=== PATIENT | male | born 1955 | race Caucasian/White ===

== ENCOUNTER 2024-08-17 22:27 | Inpatient (IN) | payer MEDICARE, SELFPAY ==
[2024-08-17 17:05] VITALS: BMI 38.5
[2024-08-17 17:09] VITALS: BP 160/113
[2024-08-17 17:32] LABS: % Basophils 0.1 % (0-2); % Immature Granulocytes 0.6 % (0-0.5); % Lymphocytes 4.8 % (20.5-51.1); % Neutrophils 88.5 % (42.2-75.2); Absolute Immature Granulocytes 0.1 10^3/uL (0-0.05); Absolute Lymphocytes 0.9 10^3/uL (1.2-3.4); Absolute Monocytes 1.1 10^3/uL (0.1-0.6); Absolute Neutrophils 15.6 10^3/uL (1.4-6.5); Hematocrit 52.9 % (39.0-52.0); Mean Corp Hgb Conc. 35.9 g/dL (33.0-37.0); Mean Corpuscular Hgb 32.3 pg (27.0-31.0); Mean Corpuscular Volume 89.8 fL (80.0-94.0); Mean Platelet Volume 9.8 fL (7.4-10.4); Nucleated Red Blood Cells % 0 % (-); Platelet Count 330 10^3/uL (130-400); Red Blood Cell Count 5.89 10^6/uL (4.70-6.10); Red Cell Dist. Width 13.3 % (11.5-14.5); White Blood Cell Count 17.7 10^3/uL (4.8-10.8)
[2024-08-17 17:44] LABS: AST (SGOT) 83 U/L (17-59); Albumin 5.2 g/dl (3.5-5.0); Alkaline Phosphatase 76 U/L (38-126); Blood Urea Nitrogen 23 mg/dl (9-20); Calcium 10.2 mg/dl (8.4-10.2); Carbon Dioxide 17 mmol/L (22-30); Chloride 94 mmol/L (98-107); Glucose 298 mg/dl (70-99); Potassium 4.1 mmol/L (3.5-5.1); Sodium 137 mmol/L (135-145); Total Bilirubin 2.5 mg/dl (0.2-1.3); Total Protein 7.5 g/dl (6.3-8.2); eGFR > 60.00
[2024-08-17 17:54] LABS: ALT (SGPT) 89 U/L (0-50)
[2024-08-17 18:01] LABS: Lipase > 4000 U/L (23-300)
--- NOTE | 2024-08-17 18:41 | ED.GENMED ---
History of Present Illness
<Emily Teran RRTS - Last Filed: 08/20/24 08:59>
General
Chief Complaint: Abdominal Pain
Source: patient and physician
Exam Limitations: none
Time Seen by Provider: 08/17/24 18:40
Nursing documentation reviewed up to this point in time: agreed with
History of Present Illness
History of Present Illness:
68-year-old male with history of chronic back pain with spinal stenosis, asthma, HTN, HLD, colitis/diverticulitis, GERD, NIDDM presents for abdominal bloating and inability to move bowels. States he felt well yesterday a.m., had a small constipated
BM then and none since. States bloating 'is getting worse and worse and I'm having trouble breathing because it's pressing on my diaphragm.' He states bloating started last evening. He feels nauseous but has not vomited.
He states he does not drink alcohol
Past History
<Emily Teran, RRTS - Last Filed: 08/20/24 08:59>
Past History
ED Past Medical History: Asthma, GERD, HTN, Hypercholesterolemia, NIDDM and Other (Diverticulitis)
ED Past Surgical History: Tonsilectomy
Social History
Tobacco: Non-smoker
Alcohol: None
Personal: Single
Living: alone
Review of Systems
<Emily Teran, RRTS - Last Filed: 08/20/24 08:59>
Review of Systems
Allergies reviewed?: Yes
All Other Systems: ROS reviewed and negative except as documented in HPI and ROS
Constitutional: Denies fever or chills
Respiratory: Reports trouble breathing (Due to pressure on his diaphragm from his abdominal swelling)
Cardiac: Denies chest pain or syncope
ABD/GI: Reports abdominal pain, nausea and constipated; Denies vomiting, bloody stools or black stools
: Reports frequency; Denies dysuria or difficulty voiding
Musculoskeletal: Reports no symptoms
Skin: Reports no symptoms
Neurological: Reports no symptoms
Phy Exam
<Emily Teran, RRTS - Last Filed: 08/20/24 08:59>
Physical Exam
Physical Exam:
GENERAL: No acute distress. A&Ox3.
CONSTITUTIONAL: Afebrile.
EYES: clear, conjunctivae normal
ENMT: moist mucus membranes, Pharynx nl
RESPIRATORY: Regular respirations, nonlabored, lungs clear.
CARDIOVASCULAR: Regular rate and rhythm, no murmurs, no rubs. Tachycardic 121
GI: Distended, firm, hypoactive BS
MUSCULOSKELETAL: Moves with ease. Well perfused. No edema
SKIN: Warm, dry, pink
PSYCH: Normal mood and affect. Well kept, interactive and appropriate
NEUROLOGIC: Awake, alert and oriented. No focal neurological deficits
Course
<Emily Teran, RRTS - Last Filed: 08/20/24 08:59>
Orders/Labs/Results
Orders:
Orders
08/17/24 Breakfast
NPO
Allow oral meds: Yes
Allow clear liquids: Sips of Clears
NPO with Ice Chips: No
08/17/24 17:21
Alcohol Urgent
Complete Blood Count/With Diff Urgent
Comprehensive Metabolic Panel Urgent
LDH Urgent
Comment: ADD ON
Lipase Urgent
08/17/24 18:50
CT Abd/Pel (IV only)-DH only Urgent
Comment:
Reason For Exam: bloating, elevated lipase, bili
08/17/24 18:51
0.9% Sodium Chloride 1000 ml [Nss] 1,000 ml IV BOLUS
HYDROmorphone [Dilaudid] 1 mg IV NOW STA
Ondansetron Injectable [Zofran] 4 mg IV NOW STA
08/17/24 19:14
Urinalysis Reflex To Culture Urgent
Date Specimen was Collected: 08/17/24
Time Specimen was Collected: 19:03
Urine Microscopic Reflex Cult Urgent
Urine Culture Urgent
CHADD Source: U
Specimen Description:
Date Specimen was Collected: 08/17/24
Time Specimen was Collected: 19:03
08/17/24 19:50
Piperacillin/Tazo 3.375 Gram [Zosyn] 3.375 gram in 50 ml IV NOW
08/17/24 19:51
Electrocardiogram (*1) Urgent
Reason for Study: QTc Monitoring
EKG- Treatment ONCE
08/17/24 20:11
0.9% Sodium Chloride 1000 ml [Nss] 1,000 ml IV BOLUS
08/17/24 20:14
Lactate Level [Lactic Acid] Urgent
Blood Culture Q30M
CHADD Source: Blood/Venous
Specimen Description:
Blood Culture Q30M
CHADD Source: Blood/Venous
Specimen Description:
08/17/24 21:13
B-Hydroxybutyrate Urgent
08/17/24 21:49
Admit/Transfer Patient As Directed
Co-Sign Provider:
Level of Care: Inpatient admission
Assign to:: IMU- Intermediate Care
Physician / Group: Jacky
Diagnosis: Pancreatitis
Reason for Hospitalization: PAncreatitis
Expected length of stay greater than two midnights?: Yes
ELOS- Estimated Length of Stay in days: 3
I certify the patient meets the requirements for IP care: Yes
Code Status As Directed
Resuscitation Status: Full Code
PRN Pain Medication Management As Directed
May give lesser potent ordered pain med per pt: Yes
preference::
Protocol:: Medication orders for pain may be administered in a
manner that supports deferring to patient preference
when the pt is:
- Requesting an ordered lesser potent pain medication.
Least to most potent pain medications are defined
as: acetaminophen < NSAID < tramadol < opioids
(morphine, oxycodone, hydromorphone).
- Requesting a lesser dose of the same medication IF
ORDERED.
- Requesting a less intrusive route of administration
if both routes are prescribed by the provider (PO <
IV).
08/17/24 21:55
Insulin Human Regular [Novolin R] 5 units IV NOW STA
08/17/24 22:00
Lactated Ringers [Lr] 1,000 ml IV 200 mls/hr
08/17/24 22:19
Insulin Human Regular [Novolin R] 3 units IV NOW STA
08/17/24 23:40
Acetaminophen [Tylenol] 650 mg PO Q4HPRN PRN
Dextrose 50%-Water [Dextrose 50% Syringe] 12.5 grams IV [id number] PRN
Glucagon [GlucaGen] 1 mg IM PRN PRN
HYDROmorphone [Dilaudid] 0.5 mg IV Q3HPRN PRN
Lactated Ringers [Lr] 1,000 ml IV 150 mls/hr
Ondansetron Injectable [Zofran] 4 mg IV Q6HPRN PRN
08/17/24 23:40
Consult Notification Routine
Specialty to Notify: Gastroenterology
Date consulting provider notified: 08/18/24
Time consulting provider notified: 07:01
Notified:: Provider
GASTROINTESTINAL CONSULT Routine
Consulting Provider: Edin Rooney
Was physician already notified: No
Reason for consult: Pancreatitis
Activity As Directed
Activity Level: Out of Bed-Early Mobility
With Assistance
Bedside Glucose Monitoring As Directed
Frequency: AC&HS
Additional Instructions:: Change to q6h if pt on TPN, tube feeding or not eating
I&O [Intake/ Output] As Directed
Frequency: q12h
Vital Signs As Directed
Frequency: Per unit guidelines
Weight As Directed
Frequency: Daily
DX Deep Vein Thrombosis Video Routine
08/18/24 00:26
BMP [Basic Metabolic Panel] Routine
Lactic Acid Routine
08/18/24 04:00
Piperacillin/Tazo 3.375 Gram [Zosyn] 3.375 gram in 50 ml IV Q6H
08/18/24 04:27
Complete Blood Count/No Diff IN AM
Comprehensive Metabolic Panel IN AM
Hgba1c [Glycohemoglobin (HgbA1c)] IN AM
Lipase IN AM
TSH Reflex To Free T4 IN AM
08/18/24 06:00
Levothyroxine [Synthroid] 200 mcg PO DAILY @ 0600
08/18/24 07:30
Insulin Aspart Corrective Mod [Novolog Flexpen-Moderate Resistance] See Protocol SC AC
08/18/24 08:00
Enalapril [Vasotec] 20 mg PO BID
Pantoprazole [Protonix IV] 40 mg IV DAILY
08/18/24 18:00
Atorvastatin [Lipitor] 10 mg PO QPM
Enoxaparin Sodium [Lovenox] 40 mg SC QPM
Abnormal Lab Results
08/17/24 08/17/24 08/17/24
17:21 19:14 20:14
WBC 17.7 H 10^3/uL
(4.8-10.8)
Hgb 19.0 H g/dL
(13.0-18.0)
Hct 52.9 H %
(39.0-52.0)
MCH 32.3 H pg
(27.0-31.0)
Abs Immat Gran (auto) 0.1 H 10^3/uL
(0-0.05)
Absolute Neuts (auto) 15.6 H 10^3/uL
(1.4-6.5)
Absolute Lymphs (auto) 0.9 L 10^3/uL
(1.2-3.4)
Absolute Monos (auto) 1.1 H 10^3/uL
(0.1-0.6)
Immature Gran % 0.6 H %
(0-0.5)
Neutrophils % 88.5 H %
(42.2-75.2)
Lymphocytes % 4.8 L %
(20.5-51.1)
Chloride 94 L mmol/L
(98-107)
Carbon Dioxide 17 L mmol/L
(22-30)
BUN 23 H mg/dl
(9-20)
Glucose 298 H mg/dl
(70-99)
Lactic Acid 6.4 H* mmol/L
(0.7-2.0)
Total Bilirubin 2.5 H mg/dl
(0.2-1.3)
AST 83 H U/L
(17-59)
ALT 89 H U/L
(0-50)
Lactate Dehydrogenase 341 H U/L
(120-246)
Albumin 5.2 H g/dl
(3.5-5.0)
Lipase > 4000 H* U/L
(23-300)
Urine Ketones 3+ A
(Negative)
Ur Occult Blood Reflex 2+ A
(Negative)
Leukocyte Esterase Rfl 1+ A
(Negative)
Urine WBC (Reflex) 30-40 A /HPF
(0-5)
Urine Bacteria (Reflex) Many A
(Negative)
Urine Glucose 2+ A
(Negative)
Urine Albumin (Reflex) 4+ A
(Neg - Trace)
B-Hydroxybutyrate
POC Glucose
08/17/24 08/17/24
21:13 22:12
WBC
Hgb
Hct
MCH
Abs Immat Gran (auto)
Absolute Neuts (auto)
Absolute Lymphs (auto)
Absolute Monos (auto)
Immature Gran %
Neutrophils %
Lymphocytes %
Chloride
Carbon Dioxide
BUN
Glucose
Lactic Acid
Total Bilirubin
AST
ALT
Lactate Dehydrogenase
Albumin
Lipase
Urine Ketones
Ur Occult Blood Reflex
Leukocyte Esterase Rfl
Urine WBC (Reflex)
Urine Bacteria (Reflex)
Urine Glucose
Urine Albumin (Reflex)
B-Hydroxybutyrate 0.81 H mmol/L
(0.02-0.27)
POC Glucose 196 H mg/dl
(70-99)
08/17/24 17:21
08/17/24 17:21
Vital Signs
Initial and Last Documented VS:
Initial Vital Signs
Temp Pulse Resp BP Pulse Ox
97.7 F 121 20 160/113 96
08/17/24 17:09 08/17/24 17:09 08/17/24 17:09 08/17/24 17:09 08/17/24 17:09
Last Documented Vital Signs
Temp Pulse Resp BP Pulse Ox
98.1 F 98 22 158/85 93
08/20/24 07:39 08/20/24 08:44 08/20/24 06:00 08/20/24 08:44 08/20/24 06:00
Chief Librarian Extension Department consulted with Physician
Chief Librarian Extension Department consulted with physician?: Yes
Name of Physician Consulted: Luciano
<Ivan Wolf MD - Last Filed: 08/17/24 21:54>
Orders/Labs/Results
Orders:
Orders
08/17/24 Breakfast
NPO
Allow oral meds: Yes
Allow clear liquids: Sips of Clears
NPO with Ice Chips: No
08/17/24 17:21
Alcohol Urgent
Complete Blood Count/With Diff Urgent
Comprehensive Metabolic Panel Urgent
LDH Urgent
Comment: ADD ON
Lipase Urgent
08/17/24 18:50
CT Abd/Pel (IV only)-DH only Urgent
Comment:
Reason For Exam: bloating, elevated lipase, bili
08/17/24 18:51
0.9% Sodium Chloride 1000 ml [Nss] 1,000 ml IV BOLUS
HYDROmorphone [Dilaudid] 1 mg IV NOW STA
Ondansetron Injectable [Zofran] 4 mg IV NOW STA
08/17/24 19:14
Urinalysis Reflex To Culture Urgent
Date Specimen was Collected: 08/17/24
Time Specimen was Collected: 19:03
Urine Microscopic Reflex Cult Urgent
Urine Culture Urgent
CHADD Source: U
Specimen Description:
Date Specimen was Collected: 08/17/24
Time Specimen was Collected: 19:03
08/17/24 19:50
Piperacillin/Tazo 3.375 Gram [Zosyn] 3.375 gram in 50 ml IV NOW
08/17/24 19:51
Electrocardiogram (*1) Urgent
Reason for Study: QTc Monitoring
EKG- Treatment ONCE
08/17/24 20:11
0.9% Sodium Chloride 1000 ml [Nss] 1,000 ml IV BOLUS
08/17/24 20:14
Lactate Level [Lactic Acid] Urgent
Blood Culture Q30M
CHADD Source: Blood/Venous
Specimen Description:
Blood Culture Q30M
CHADD Source: Blood/Venous
Specimen Description:
08/17/24 21:13
B-Hydroxybutyrate Urgent
08/17/24 21:49
Admit/Transfer Patient As Directed
Co-Sign Provider:
Level of Care: Inpatient admission
Assign to:: IMU- Intermediate Care
Physician / Group: Jacky
Diagnosis: Pancreatitis
Reason for Hospitalization: PAncreatitis
Expected length of stay greater than two midnights?: Yes
ELOS- Estimated Length of Stay in days: 3
I certify the patient meets the requirements for IP care: Yes
Code Status As Directed
Resuscitation Status: Full Code
PRN Pain Medication Management As Directed
May give lesser potent ordered pain med per pt: Yes
preference::
Protocol:: Medication orders for pain may be administered in a
manner that supports deferring to patient preference
when the pt is:
- Requesting an ordered lesser potent pain medication.
Least to most potent pain medications are defined
as: acetaminophen < NSAID < tramadol < opioids
(morphine, oxycodone, hydromorphone).
- Requesting a lesser dose of the same medication IF
ORDERED.
- Requesting a less intrusive route of administration
if both routes are prescribed by the provider (PO <
IV).
08/17/24 21:55
Insulin Human Regular [Novolin R] 5 units IV NOW STA
08/17/24 22:00
Lactated Ringers [Lr] 1,000 ml IV 200 mls/hr
08/17/24 22:19
Insulin Human Regular [Novolin R] 3 units IV NOW STA
08/17/24 23:40
Acetaminophen [Tylenol] 650 mg PO Q4HPRN PRN
Dextrose 50%-Water [Dextrose 50% Syringe] 12.5 grams IV [id number] PRN
Glucagon [GlucaGen] 1 mg IM PRN PRN
HYDROmorphone [Dilaudid] 0.5 mg IV Q3HPRN PRN
Lactated Ringers [Lr] 1,000 ml IV 150 mls/hr
Ondansetron Injectable [Zofran] 4 mg IV Q6HPRN PRN
08/17/24 23:40
Consult Notification Routine
Specialty to Notify: Gastroenterology
Date consulting provider notified: 08/18/24
Time consulting provider notified: 07:01
Notified:: Provider
GASTROINTESTINAL CONSULT Routine
Consulting Provider: Edin Rooney
Was physician already notified: No
Reason for consult: Pancreatitis
Activity As Directed
Activity Level: Out of Bed-Early Mobility
With Assistance
Bedside Glucose Monitoring As Directed
Frequency: AC&HS
Additional Instructions:: Change to q6h if pt on TPN, tube feeding or not eating
I&O [Intake/ Output] As Directed
Frequency: q12h
Vital Signs As Directed
Frequency: Per unit guidelines
Weight As Directed
Frequency: Daily
DX Deep Vein Thrombosis Video Routine
08/18/24 00:26
BMP [Basic Metabolic Panel] Routine
Lactic Acid Routine
08/18/24 04:00
Piperacillin/Tazo 3.375 Gram [Zosyn] 3.375 gram in 50 ml IV Q6H
08/18/24 04:27
Complete Blood Count/No Diff IN AM
Comprehensive Metabolic Panel IN AM
Hgba1c [Glycohemoglobin (HgbA1c)] IN AM
Lipase IN AM
TSH Reflex To Free T4 IN AM
08/18/24 06:00
Levothyroxine [Synthroid] 200 mcg PO DAILY @ 0600
08/18/24 07:30
Insulin Aspart Corrective Mod [Novolog Flexpen-Moderate Resistance] See Protocol SC AC
08/18/24 08:00
Enalapril [Vasotec] 20 mg PO BID
Pantoprazole [Protonix IV] 40 mg IV DAILY
08/18/24 18:00
Atorvastatin [Lipitor] 10 mg PO QPM
Enoxaparin Sodium [Lovenox] 40 mg SC QPM
Abnormal Lab Results
08/17/24 08/17/24 08/17/24
17:21 19:14 20:14
WBC 17.7 H 10^3/uL
(4.8-10.8)
Hgb 19.0 H g/dL
(13.0-18.0)
Hct 52.9 H %
(39.0-52.0)
MCH 32.3 H pg
(27.0-31.0)
Abs Immat Gran (auto) 0.1 H 10^3/uL
(0-0.05)
Absolute Neuts (auto) 15.6 H 10^3/uL
(1.4-6.5)
Absolute Lymphs (auto) 0.9 L 10^3/uL
(1.2-3.4)
Absolute Monos (auto) 1.1 H 10^3/uL
(0.1-0.6)
Immature Gran % 0.6 H %
(0-0.5)
Neutrophils % 88.5 H %
(42.2-75.2)
Lymphocytes % 4.8 L %
(20.5-51.1)
Chloride 94 L mmol/L
(98-107)
Carbon Dioxide 17 L mmol/L
(22-30)
BUN 23 H mg/dl
(9-20)
Glucose 298 H mg/dl
(70-99)
Lactic Acid 6.4 H* mmol/L
(0.7-2.0)
Total Bilirubin 2.5 H mg/dl
(0.2-1.3)
AST 83 H U/L
(17-59)
ALT 89 H U/L
(0-50)
Lactate Dehydrogenase 341 H U/L
(120-246)
Albumin 5.2 H g/dl
(3.5-5.0)
Lipase > 4000 H* U/L
(23-300)
Urine Ketones 3+ A
(Negative)
Ur Occult Blood Reflex 2+ A
(Negative)
Leukocyte Esterase Rfl 1+ A
(Negative)
Urine WBC (Reflex) 30-40 A /HPF
(0-5)
Urine Bacteria (Reflex) Many A
(Negative)
Urine Glucose 2+ A
(Negative)
Urine Albumin (Reflex) 4+ A
(Neg - Trace)
B-Hydroxybutyrate
POC Glucose
08/17/24 08/17/24
21:13 22:12
WBC
Hgb
Hct
MCH
Abs Immat Gran (auto)
Absolute Neuts (auto)
Absolute Lymphs (auto)
Absolute Monos (auto)
Immature Gran %
Neutrophils %
Lymphocytes %
Chloride
Carbon Dioxide
BUN
Glucose
Lactic Acid
Total Bilirubin
AST
ALT
Lactate Dehydrogenase
Albumin
Lipase
Urine Ketones
Ur Occult Blood Reflex
Leukocyte Esterase Rfl
Urine WBC (Reflex)
Urine Bacteria (Reflex)
Urine Glucose
Urine Albumin (Reflex)
B-Hydroxybutyrate 0.81 H mmol/L
(0.02-0.27)
POC Glucose 196 H mg/dl
(70-99)
08/17/24 17:21
08/17/24 17:21
Vital Signs
Initial and Last Documented VS:
Initial Vital Signs
Temp Pulse Resp BP Pulse Ox
97.7 F 121 20 160/113 96
08/17/24 17:09 08/17/24 17:09 08/17/24 17:09 08/17/24 17:09 08/17/24 17:09
Last Documented Vital Signs
Temp Pulse Resp BP Pulse Ox
98.1 F 98 22 158/85 93
08/20/24 07:39 08/20/24 08:44 08/20/24 06:00 08/20/24 08:44 08/20/24 06:00
<Emily Teran RRTS - Last Filed: 08/20/24 08:59>
MDM/Problems Addressed
Differential Diagnosis Includes:
Gallstone pancreatitis, diverticulitis
DKA, Sepsis
MDM/Problems Addressed:
68-year-old male with history of chronic back pain with spinal stenosis, asthma, HTN, HLD, colitis/diverticulitis, GERD, NIDDM presents for abdominal bloating and inability to move bowels. States he felt well yesterday a.m., had a small constipated
BM then and none since. States bloating 'is getting worse and worse and I'm having trouble breathing because it's pressing on my diaphragm.' He states bloating started last evening. He feels nauseous but has not vomited.
He states he does not drink alcohol
Afebrile, looks moderately uncomfortable, pleasant, NAD
Tachycardic, hypertensive
7:30 p.m.
CBC: WBC 17.7 with left shift
CMP: Glucose 298, Bicarb 17, total bilirubin 2.5, mild elevation of AST, ALT
Lipase greater than 4000
Anion gap [address] Wolf
8:40 p.m.
Lactic 6.4
Plan: Admit: Acute pancreatitis, DKA
Hospitalist notified of admission.
Chronic conditions affecting care: DM and HTN
<Emily Teran RRTS - Last Filed: 08/20/24 08:59>
*Critical Care Note
Total Time (30-74mins, 75-104mins- exclusive of procedures): Not Applicable
ED Attending Note
<Emily Teran RRTS - Last Filed: 08/20/24 08:59>
-
Portions of this chart may have been created with voice recognition software.� Occasional wrong word or��sound alike� substitutions may have occurred due to the inherent limitations of voice recognition software.
<Ivan Wolf MD - Last Filed: 08/17/24 21:54>
ED Attending Note
Patient seen and examined by attending physician: Yes
ED Attending Note:
I have seen and evaluated the patient with a [id number] encounter. I have spoken to the advance practicer provider and involved in the medical history, the physical exam, medical decision making.
Evaluation and management service: agree unless noted differently below.
Results interpretation: agree unless noted differently below.
Focused HPI: 68-year-old male with history as noted presents for evaluation of abdominal pain, distention, constipation. Ongoing for the past 48 hours. Denies vomiting.
Physical exam: Awake alert. Tachycardic, mild tachypnea. Hypertensive. Abdomen distended with tympany, diffusely tender.
Medical Decision Makin-year-old male presents with abdominal pain, distention, constipation. He has a leukocytosis to 17 and a CMP shows signs consistent with acute pancreatitis with a lipase over 5000. He also has elevated T. bili and
AST/ALT. He has a lactic acidosis. He has hyperglycemia with an anion gap metabolic acidosis�could be secondary to lactic acidosis or mild DKA. Will treat with insulin, fluids. His CT abdomen pelvis confirms acute pancreatitis also shows some
gall stones in the gallbladder and whole clinical picture is concerning for gallstone pancreatitis. Will treat with Zosyn given his leukocytosis, tachycardia, tachypnea and elevated lactate and concern for obstructive gallstone. Admit to
hospitalist service.
Discharge Plan
Departure
Patient Disposition: Admit
Date of Disposition: 08/17/24
Time of Disposition: 20:41
Presentation/result/management discussed w/ accepting MD/DO: Hospitalist
Condition: Serious
Discharge Problem:
Acute gallstone pancreatitis, DKA (diabetic ketoacidosis)
Interventions
Interventions:
*Risk Screen - Suicide Last Done: 08/17/24 17:09
*General Assessment Last Done: 08/17/24 17:09
*Neglect/Abuse Screening Last Done: 08/17/24 17:09
*Nursing Disposition Last Done: 08/17/24 23:26
OI-Iclred-Vtvpsygozt Assessment Last Done: 08/17/24 19:59
Discharge Date and Time
Discharge Date/Time: 08/17/24 23:27
[2024-08-17 18:54] VITALS: BP 148/108
[2024-08-17 19:00] VITALS: BP 134/82
[2024-08-17] MEDS: ZOFRAN 4 MG IV (19:04)
[2024-08-17] MEDS: DILAUDID 1 MG IV (19:04)
[2024-08-17] MEDS: NSS 1000 IV ×2 (19:05→20:12)
[2024-08-17 19:51] LABS: Urine Albumin 4+ (Neg - Trace); Urine Bilirubin Negative (Negative); Urine Character Slightly Cloudy (Clear); Urine Color Yellow; Urine Glucose 2+ (Negative); Urine Ketone 3+ (Negative); Urine Leukocyte 1+ (Negative); Urine Nitrite Negative (Negative); Urine Occult Blood 2+ (Negative); Urine Specific Gravity 1.025 (<1.030); Urine Urobilinogen Negative (Neg - 1+)
[2024-08-17 20:00] VITALS: BP 143/94
[2024-08-17] MEDS: ZOSYN 50 IV (20:09)
[2024-08-17 20:22] LABS: Urine Bacteria Many (Negative); Urine Red Blood Cell 0-2 /HPF (0-2); Urine White Cell 30-40 /HPF (0-5)
[2024-08-17 20:23] LABS: Urine Hyaline Cast >15 /LPF (0-2)
[2024-08-17 20:40] LABS: Lactic Acid 6.4 mmol/L (0.7-2.0)
[2024-08-17 20:47] LABS: LDH 341 U/L (120-246)
[2024-08-17 20:48] LABS: Alcohol None Detected
--- NOTE | 2024-08-17 21:27 | HPS.HSE ---
Family Physician
-
Family Physician: Berto Perez
Chief Complaint
-
Abdominal Pain and Bloating
History of Present Illness
Patient is a 68 y/o male past medical history of hypertension, hyperlipidemia, diabetes mellitus who presents with abdominal pain and bloating. Patient reports increasing abdominal bloating and pain for the past two days. He reports constipation
with last bowel movement two days ago. He notes abdomen has become so distended it is affecting his breathing. He reports nausea, but no vomiting. He denies fevers, sweats or chills.
Medical History
Past Medical History
Past Medical History: Reports Other
Additional Past Medical History:
Diabetes Mellitus, Type II
Essential Hypertension
Hyperlipidemia
Hypothyroidism
Spinal Stenosis
GERD
Class II Obesity
Past Surgical History: Reports Other
Additional Past Surgical History:
Tonsillectomy
Social History
Tobacco: Non-smoker
Alcohol: Occasional (A few times a year)
Family History
Family History: Not pertinent
Allergies / Home Medications
Allergies reflects when Allergies were last updated in [facility].
Home Medications with original date entered in [facility]
Allergy/Medication List:
Allergies
Allergy/AdvReac Type Severity Reaction Status Date / Time
Tetracyclines Allergy Unknown Verified 08/17/24 17:09
Home Medications
aspirin 325 mg tablet 325 mg PO QIDPRN PRN mild pain 08/17/24
atorvastatin 10 mg tablet 10 mg PO QPM 08/17/24
docusate sodium 100 mg tablet 100 mg PO BID 08/17/24
enalapril maleate 20 mg tablet 20 mg PO BID 08/17/24
hydrochlorothiazide 25 mg tablet 25 mg PO DAILY 08/17/24
labetalol 100 mg tablet 25 mg PO DAILYPRN PRN racing heart 08/17/24
labetalol 100 mg tablet 25 mg PO TID 08/17/24
levothyroxine 200 mcg tablet (Levoxyl) 200 mcg PO DAILY 08/17/24
metoprolol succinate 25 mg tablet,extended release 24 hr 25 mg PO DAILYPRN PRN racing heart 08/17/24
omeprazole 20 mg capsule,delayed release 20 mg PO DAILY 08/17/24
therapeutic multivitamin 1 tab PO DAILY 08/17/24
vitamin B complex 1 tab PO DAILY 08/17/24
Review of Systems
-
A 12 point ROS was completed and negative except as noted: Yes
Constitutional: Denies Fever or Chills
Respiratory: Denies Cough or Trouble Breathing
Cardiac: Denies Chest Pain or Palpitations
Abdomen/GI: Reports See HPI
Physical Exam
Vital Signs
Vital Signs
Temp Pulse Resp BP Pulse Ox
97.7 F 113 27 143/94 95
08/17/24 17:09 08/17/24 20:45 08/17/24 20:45 08/17/24 20:00 08/17/24 20:45
Physical Exam
General: Well Developed, Well Nourished and Conversant
HEENT: NormoCephalic, Moist mucous membranes and Atraumatic
Respiratory: Clear and Non Labored Respirations
Cardiac: S1/S2 and Regular Rhythm
GI: Tender (Increased tenderness in epigastric region, and bilateral upper quadrants with slight voluntary guarding) and Distended
Rectal: Deferred by Provider
Musculoskeletal: No Clubbing, No Cyanosis and No Edema
Skin: Warm and Dry
Neuro: Awake, Alert, Oriented and Nonfocal/grossly intact
Psych: Calm
Laboratory Results
-
08/17/24 17:21
08/17/24 17:21
Laboratory Results
Lactic Acid 6.4 mmol/L (0.7-2.0) H* 08/17/24 20:14
Total Bilirubin 2.5 mg/dl (0.2-1.3) H 08/17/24 17:21
AST 83 U/L (17-59) H 08/17/24 17:21
ALT 89 U/L (0-50) H 08/17/24 17:21
Alkaline Phosphatase 76 U/L (38-126) 08/17/24 17:21
Lipase > 4000 U/L (23-300) H* 08/17/24 17:21
Data Reviewed
-
CT Scan: Report Reviewed by me
Lab Data: Labs Reviewed by me
Impression/Plan
-
Acute / Severe Pancreatitis, possibly gallstone vs weight loss supplement related
-Consult GI
-Continue aggressive IVFs
-Continue NPO
-Continue Zosyn
-Check Abd MRI
Metabolic / Lactic Acidosis, suspect more related to acute/severe pancreatitis
-Continue to trend Lactic Acid Level
-Recheck BMP later tonight
Diabetes Mellitus, Type II - Uncontrolled
-B-Hydroxybutyrate slightly elevated
-Give Insulin 5 unit IV Now
-Recheck BMP in 2 hours
-Monitor sugars and continue coverage insulin - Consider insulin drip based on repeat labs
--Check HgbA1c
Liver vs Adrenal Mass noted on CT scan
-Check Abd MRI with and without contrast
Essential Hypertension
-Continue enalapril
-Hold HCTZ
-Unclear dosing of labetalol - Will hold for now
Hyperlipidemia
-Continue atorvastatin
Hypothyroidism
-Continue levothyroxine
GERD
-Continue Protonix
Class II Obesity
-Affects all aspects of care
DVT proph: Lovenox
Code Status: Full Code
[2024-08-17 21:40] LABS: B-Hydroxybutyrate 0.81 mmol/L (0.02-0.27)
--- NOTE | 2024-08-17 21:50 | W.PN.UPDATE ---
Update Note
Progress Note Update
Patient seen in conjunction with BEAM DYER. I agree with the history and physical. I Concur with Assessment and Plan Listed Otherwise.
Briefly, 68-year-old male with history of chronic back pain with spinal stenosis, asthma, HTN, HLD, colitis/diverticulitis, GERD, NIDDM presents for abdominal bloating and inability to move bowels. Reports increasing abdominal bloating for the last
24 hours that is now associated with some difficulty with breathing. He reports nausea but no vomiting. Denies any fevers or chills. He denies any cough, wheezing, or chest pain. No known sick contacts. He has diabetes but does not take any
medications with last A1c of 6.5.
Denies any alcohol use. Denies history of gallstones.
In the emergency department, was afebrile with a temp of 91.7 he was satting 95% on 2 L. Blood pressure was 143/90 with a pulse of 113 and respiratory to of 27. Is lab test are notable for a white count of 17.7, hemoglobin of 19, BUN and
creatinine were stable at 0.7 and 1.2 with normal sodium and potassium. Bicarb was 17. Lactic acid was elevated at 6. His lipase was over 4000 albumin 5.2. LFTs with total bilirubin of 2.5, AST and ALT in the 80s. UA is unremarkable as he has
numerous squamous cells but does have WBCs and few bacteria.
CT of the abdomen pelvis showing: Small calcified gallstones within the dependent neck of the gallbladder. No evidence for biliary ductal dilation. Mild gallbladder wall thickening which is nonspecific.
CT findings compatible with pancreatitis with significant surrounding edema. Edema within the retroperitoneal fascial planes extending into the left paracolic gutter. There is also edema extending into the right and left upper quadrant adjacent to
the liver and spleen.
Liver is enlarged.
There is a focal rounded mass in the region of the medial right lobe liver adjacent to the lateral margin of the superior right adrenal gland. This could either originates from the liver or the adrenal gland. Further evaluation with MRI of the
abdomen without and with contrast is recommended when clinically feasible.
Assessment and plan
Patient with abdominal pain and bloating likely secondary to pancreatitis. He also likely has gallstone pancreatitis with gallstone ileus. Lipase 4000, marked pancreatic edema with edema within the retroperitoneal fascial plane extending to the
left paracolic gutter concerning for severe acute pancreatitis. He remains hemodynamically stable and afebrile at this time. Renal function is stable. He had a bicarb of 17 with anion gap likely secondary to elevated lactic acid levels.
Primary [place] to be reduced however 0.8 with some ketones in the urine. Suspect most likely lactic acidosis with mild DKA and starvation ketoacidosis.
Severe acute pancreatitis - Gallstone pancreatitis likely with ileus
- admit to imu
- NPO for now
- hold antihypertensive
- s/p 2 L NS, continue LR x 1 L at 200 ml/hr then follow at 150 ml/hr
- IV zosyn continued, if febrile change to imipenem
- MRI of abdomen to evaluate liver mass with mrcp to eval biliary obstruction
- GI consultation
Mild DKA - bHB 0.8. glucose 300. Severely dehydrated with Hgb 19, alb 3
- IV fluids as above
- insulin 5 units x 1 now for glucose > 300
- repeat labs in 4 hours
- hold off continous insulin for now
- blood glucose q6 standing for now
DVT PPX - lovenox Sq
Code status - Full Code
[2024-08-17] MEDS: LR 1000 IV (22:18)
[2024-08-17 22:26] LABS: Glucose - Point of Care 196 mg/dl (70-99)
[2024-08-17] MEDS: NOVOLIN R 3 UNITS IV (22:58)
[2024-08-17 23:43] VITALS: BP 134/65
[2024-08-18] VITALS (14 sets, daily range): BP systolic 118–178; BP diastolic 70–102; BMI 42.6; BMI 42.5
[2024-08-18] MEDS: DILAUDID 0.5 MG IV ×5 (00:10→23:37)
[2024-08-18 00:49] LABS: Blood Urea Nitrogen 28 mg/dl (9-20); Calcium 8.9 mg/dl (8.4-10.2); Carbon Dioxide 22 mmol/L (22-30); Chloride 100 mmol/L (98-107); Estimated Creatinine Clearance 75 ml/min; Glucose 227 mg/dl (70-99); Lactic Acid 3.9 mmol/L (0.7-2.0); Sodium 133 mmol/L (135-145)
--- NOTE | 2024-08-18 01:04 | PTCARENOTE ---
Received pt from ED at 23:00. Pt aaox3, able to make needs known. NSR with PVC on monitor. Tachypneic, orthopneic, JENNINGS. Shallow respirations. Lungs diminished, SaO2 92% on 2LNC. C/o /10 abdominal pain. PRN IV dilaudid given. Abdomen round,
distended, firm. Last bm 08/16. NPO with sips of clears. OOB w/ assistx1 to BSC. LR @150ml/hr through R AC. Call bravo and belonging bags within reach. Care ongoing.
[2024-08-18 01:21] LABS: Glucose - Point of Care 215 mg/dl (70-99)
[2024-08-18] MEDS: SYNTHROID 200 MCG PO (04:49)
[2024-08-18] MEDS: ZOSYN 50 IV ×4 (04:49→21:49)
[2024-08-18] MEDS: NSS 1000 IV (04:49)
[2024-08-18 04:58] LABS: Hematocrit 46.5 % (39.0-52.0); Hemoglobin 16.6 g/dL (13.0-18.0); Mean Corp Hgb Conc. 35.7 g/dL (33.0-37.0); Mean Corpuscular Hgb 32.5 pg (27.0-31.0); Mean Platelet Volume 10.2 fL (7.4-10.4); Platelet Count 210 10^3/uL (130-400); Red Blood Cell Count 5.11 10^6/uL (4.70-6.10); Red Cell Dist. Width 13.5 % (11.5-14.5); White Blood Cell Count 15.4 10^3/uL (4.8-10.8)
[2024-08-18 05:10] LABS: Lactic Acid 3.8 mmol/L (0.7-2.0)
[2024-08-18 05:16] LABS: ALT (SGPT) 59 U/L (0-50); AST (SGOT) 59 U/L (17-59); Albumin 3.6 g/dl (3.5-5.0); Alkaline Phosphatase 58 U/L (38-126); Blood Urea Nitrogen 32 mg/dl (9-20); Calcium 8.8 mg/dl (8.4-10.2); Carbon Dioxide 23 mmol/L (22-30); Chloride 100 mmol/L (98-107); Estimated Creatinine Clearance 70 ml/min; Glucose 225 mg/dl (70-99); Potassium 4.1 mmol/L (3.5-5.1); Sodium 135 mmol/L (135-145); Total Bilirubin 2.3 mg/dl (0.2-1.3); Total Protein 5.8 g/dl (6.3-8.2); eGFR 54.07
[2024-08-18 05:31] LABS: Lipase > 4000 U/L (23-300)
[2024-08-18 05:42] LABS: TSH Reflex To Free T4 2.08 uIU/ml (0.47-4.68)
[2024-08-18] MEDS: NOVOLOG FLEXPEN-MODERATE RESISTANCE 3 UNITS SC ×2 (06:16→13:36)
[2024-08-18 06:28] LABS: Glucose - Point of Care 248 mg/dl (70-99)
--- NOTE | 2024-08-18 08:17 | PTCARENOTE ---
Assumed care of patient this AM. Patient NPO overnight, sips of water. IV fluids infusing as ordered. Patient screened for MRI this morning. Patient reports severe abdominal pain, medicating with dilaudid as ordered. Abdomen distended and
firm, hurts to take deep breaths. SR/ST on monitor. Will continue to monitor frequently.
[2024-08-18 08:45] LABS: Glycohemoglobin (HgbA1c) 6.9 % (4.0-5.6)
[2024-08-18] MEDS: NSS (PRESERVATIVE FREE) 10 ML IV (09:10)
[2024-08-18] MEDS: VASOTEC 20 MG PO ×2 (09:11→21:49)
[2024-08-18] MEDS: PROTONIX IV 40 MG IV (09:11)
[2024-08-18 09:22] LABS: Lactic Acid 3.4 mmol/L (0.7-2.0)
--- NOTE | 2024-08-18 12:27 | W.PN.HOSP.TC ---
Today's Communication/Plan
-
monitor vitals
see plan
check TGL,igg4
start IV hep
npo
IVF
Assessment / Plan
Assessment / Plan
General: Well Developed, Well Nourished and Conversant
HEENT: NormoCephalic, Moist mucous membranes and Atraumatic
Respiratory: Clear and Non Labored Respirations
Cardiac: S1/S2 and Regular Rhythm
GI: Tender, and Distended
Musculoskeletal: mild Edema
Neuro: Awake, Alert, Oriented and Nonfocal/grossly intact
Psych: Calm
Acute / Severe Pancreatitis, necrotizing
MRI with necrotizing pancreatitis, filling defect within the anterior aspect of splenic vein extending to the confluence of portal vein consistent with nonocclusive thrombus. This is likely secondary to necrotizing pancreatitis
per MRI, cholelithiasis. Apparent wall thickening of the common bile duct which may present an element of cholangitis.
GI consulted; will see need for ERCP
Consult hematology
Start IV heparin
NPO
monitor lipase
fluids
cw abx
check TGL,IGG4
Metabolic / Lactic Acidosis, suspect more related to acute/severe pancreatitis
-Continue to trend Lactic Acid Level
Diabetes Mellitus, Type II - Uncontrolled
-B-Hydroxybutyrate slightly elevated
give NPH low dose now; start lantus tonite; cw sliding scalre; accuchecks
--HgbA1c 6.9
Renal sufficiency
monitor
Pyuria
unclear if has UTI; will monitor
2.6 cm exophytic, nonenhancing lesion along the posterior medial right hepatic lobe likely benign atypical hemangioma. Repeat MRI in 6 months to ensure stability
Essential Hypertension
-Continue enalapril
-Hold HCTZ
cw labtealol
Hyperlipidemia
-Continue atorvastatin
Hypothyroidism
-Continue levothyroxine
GERD
-Continue Protonix
Class II Obesity
-Affects all aspects of care
DVT proph: Lovenox
Code Status: Full Code
I spent a total of 53 minutes with the patient or on the floor. More than 50% of this time involved counseling and coordination of care.
Anticipated Discharge: > 48 hours
Subjective/Interval History
-
Date of Service: August 18, 2024
has abdominal pain
Objective Data
-
Labs:
Laboratory Results
08/18/24 08/18/24
00:26 04:27
WBC 15.4 H
Hgb 16.6
Hct 46.5
Plt Count 210 D
Sodium 133 L 135
Potassium 4.0 4.1
Chloride 100 100
Carbon Dioxide 22 23
BUN 28 H 32 H
Creatinine 1.3 1.4 H
Glucose 227 H 225 H
Calcium 8.9 8.8
Total Bilirubin 2.3 H
AST 59
ALT 59 H
Alkaline Phosphatase 58
Vital Signs:
Vital Signs
Temp Pulse Resp BP Pulse Ox
98.2 F 107 21 165/92 91
08/18/24 11:45 08/18/24 08:15 08/18/24 08:15 08/18/24 08:15 08/18/24 08:15
I&O
08/17/24 08/18/24 08/19/24
06:59 06:59 06:59
Intake Total 1630 / 1630
Output Total 300 / 300 395 / 395
Balance 1330 / 1330 -395 / -395
--- NOTE | 2024-08-18 13:09 | CM ---
Patient seen at bedside
IA completed
Dx: Pancreatitis
came from his pcp office, drove self d/t abdominal pain
PMH: HTN, DM, HDL, spinal stenosis chronic back pain, asthma, obesity
Lives alone on a 3rd floor condo with an elevator, no steps
PLOF: Independent, does not use assistive device
Denies DME
Denies VN/Rehab
Denies insecurities
PCP: Berto Perez
Pharmacy: [facility]
PLAN: home, currently no needs
--- NOTE | 2024-08-18 13:21 | CON.GI ---
Addendum entered and electronically signed by Edin Rooney MD 08/18/24 14:56:
I saw and evaluated the patient. I reviewed the resident�s note and agree with findings and plan as documented in the resident�s note.
68yo male presents with severe abdominal pain and constipation. Lipase 4000. TBil 2.3, AST 59, ALT 59. CT shows acute pancreatitis, liver lesion, gallstones in neck GB. MRI shows necrotizing pancreatitis, liver lesion likely atypical hemangioma,
gallstones, NO CBD stone. No significant EtOH.
REC:
NPO
Aggressive IVF hydration- resume lactated ringers 200cc/hr
Watch Cr up a little since admission
No indication for ERCP with MRI negative for CBD stone.
Will follow carefully and watch for MSOF
Original Note:
Consultation
-
Date/Time Consultation Requested: 08/17/2024 23.40
Date/Time Consultation Performed: 08/18/2024 12.05
Requesting Provider: aLndon Chi PA-C
Performing Provider: Rashmi Huggins MD
Reason for Consultation: Pancreatitis
Medical History
Chief Complaint / HPI
Chief Complaint: Abdominal pain
History of Present Illness:
The patient is a 68-year-old male with a past medical history of spinal stenosis, asthma, hypertension, hyperlipidemia, history of diverticulitisX4 (last episode 3 years ago), GERD, NIDDM who presented to ER on 08/17/2024 complaining from worsening
generalized abdominal pain associated with nausea and feeling bloated. Additionally, the patient reported feeling shortness of breath due feeling pressure on his diaphragm related his abdominal distention. The patient reports her last bowel
movement was on Friday morning with very small amount and hard. Reports he has chronic constipation issues for years and takes docusate for it. He reports having GERD symptoms 2-3 times/monthly and did not have any heartburn with this pain.
Patient denies history of cholecystitis, alcohol consuming (very rarely), NSAID use, new medication,acholic stools, bilirubinuria, sick contacts, coughing, fever, chest pain, vomiting, hematemesis, dysphagia, odynophagia, melena and rectal pain.
Reports had colonoscopy and endoscopy about 10 years ago at [facility] which which was normal.
Past Medical History
Past Medical History: GERD, HTN, Hypercholesterolemia, Hypothyroidism, NIDDM and Other (Spinal stenosis, Obesity)
Past Surgical History: Tonsilectomy and Other
Social History
Tobacco: Non-Smoker
Alcohol: Occasional (very rarely )
Drug: None
Family History
Family History: Other (Family hx of Diveticulitis)
Allergies / Home Medications
Allergy/AdvReac Type Severity Reaction Status Date / Time
Tetracyclines Allergy Unknown Verified 08/17/24 17:09
�Medication �Instructions �Recorded
aspirin 325 mg tablet 325 mg PO QIDPRN PRN mild pain 08/17/24
atorvastatin 10 mg tablet 10 mg PO QPM High Cholesterol 08/17/24
docusate sodium 100 mg tablet 100 mg PO BID Constipation 08/17/24
enalapril maleate 20 mg tablet 20 mg PO BID Blood Pressure 08/17/24
hydrochlorothiazide 25 mg tablet 25 mg PO DAILY Blood Pressure 08/17/24
labetalol 100 mg tablet 25 mg PO DAILYPRN PRN racing heart 08/17/24
labetalol 100 mg tablet 25 mg PO TID Blood Pressure 08/17/24
levothyroxine 200 mcg tablet 200 mcg PO DAILY Thyroid 08/17/24
(Levoxyl)
metoprolol succinate 25 mg 25 mg PO DAILYPRN PRN racing heart 08/17/24
tablet,extended release 24 hr
omeprazole 20 mg capsule,delayed 20 mg PO DAILY Gastrointestinal 08/17/24
release Issue
therapeutic multivitamin 1 tab PO DAILY Supplement 08/17/24
vitamin B complex 1 tab PO DAILY Supplement 08/17/24
Review of Systems
-
History Source: Patient
EENT: Reports No Symptoms
Respiratory: Reports Other (shortness of breath )
Cardiac: Reports No Symptoms
Abdomen/GI: Reports Abdominal Pain and Nausea
: Reports No Symptoms
Musculoskeletal: Reports Edema
Skin: Reports No Symptoms
Neurological: Reports No Symptoms
Vital Signs
Temp Pulse Resp BP Pulse Ox
98.2 F 107 21 165/92 91
08/18/24 11:45 08/18/24 08:15 08/18/24 08:15 08/18/24 08:15 08/18/24 08:15
Physical Exam
Exam
General: Well Developed, Well Nourished and Respiratory Distress
HEENT: Normocephalic and Anicteric
Respiratory: Clear
Cardiac: S1/S2 and Regular Rhythm
GI: Tender and Distended
Musculoskeletal: Edema (1 + bilateral trace edema)
Skin: Warm
Neuro: Awake, Alert, Oriented and AO x 3
Psych: Calm
Results
WBC 15.4 10^3/uL (4.8-10.8) H 08/18/24 04:27
Hgb 16.6 g/dL (13.0-18.0) 08/18/24 04:27
Hct 46.5 % (39.0-52.0) 08/18/24 04:27
MCV 91.0 fL (80.0-94.0) 08/18/24 04:27
Plt Count 210 10^3/uL (130-400) D 08/18/24 04:27
Absolute Neuts (auto) 15.6 10^3/uL (1.4-6.5) H 08/17/24 17:21
Sodium 135 mmol/L (135-145) 08/18/24 04:27
Potassium 4.1 mmol/L (3.5-5.1) 08/18/24 04:27
Chloride 100 mmol/L (98-107) 08/18/24 04:27
Carbon Dioxide 23 mmol/L (22-30) 08/18/24 04:27
BUN 32 mg/dl (9-20) H 08/18/24 04:27
Creatinine 1.4 mg/dL (0.7-1.3) H 08/18/24 04:27
Calcium 8.8 mg/dl (8.4-10.2) 08/18/24 04:27
Total Bilirubin 2.3 mg/dl (0.2-1.3) H 08/18/24 04:27
AST 59 U/L (17-59) 08/18/24 04:27
ALT 59 U/L (0-50) H 08/18/24 04:27
Alkaline Phosphatase 58 U/L (38-126) 08/18/24 04:27
Lipase > 4000 U/L (23-300) H* 08/18/24 04:27
Diagnostic Image Results:
08/18/2024 ABD MRI
FINDINGS:
LUNG BASES: Small right and trace left pleural effusions with adjacent atelectasis. Small hiatal hernia.
ABDOMEN:
LIVER: Normal morphology. No significant difference of hepatic signal intensity between in and out of phase images. 1.3 cm cyst within the right hepatic dome. There is a 2.6 x 2.0 cm lesion along the posterior medial right hepatic lobe which is T1
mildly hypointense and T2 mildly hyperintense. This appears to extend towards the superior limb of the right adrenal gland.
BILE DUCTS: There is no intra or extrahepatic biliary ductal dilatation. The common bile duct appears diminutive with mild wall enhancement. There is no definite filling defect.
GALLBLADDER: Cholelithiasis.
PANCREAS: Diffusely edematous with peripancreatic fluid/stranding. The pancreatic body appears hypoenhancing. There is no peripancreatic collection. SPLEEN: Within normal limits.
ADRENAL GLANDS: There is a 2.6 x 2.0 cm lesion along the superior limb of the right adrenal which extends from the posterior medial aspect of the right hepatic lobe. The left adrenal gland is unremarkable.
KIDNEYS: No hydronephrosis. There are left-sided renal cysts with the largest measuring 7.4 cm. There is an adjacent 3.1 cm cyst. There is focal cortical scarring along the superior pole left kidney.
BOWEL: There is persistent mild distention of the colon, possible ileus.
PERITONEUM: Small volume perihepatic and perisplenic free fluid.
VASCULATURE: No abdominal aortic aneurysm.There is an apparent filling defect within the anterior aspect of the splenic vein extending to the confluence of portal vein, likely nonocclusive thrombus (series 1401 image 384). Known splenic artery
aneurysm measuring 1.3 cm, similar to prior.
RETROPERITONEUM: There is free fluid anteriorly extending along the bilateral paracolic gutters.
ABDOMINAL WALL: Unremarkable.
MUSCULOSKELETAL: No suspicious osseous abnormality.
IMPRESSION:
There is a 2.6 x 2.0 cm exophytic, nonenhancing lesion along the posterior medial right hepatic lobe which is likely benign and may represent an atypical hemangioma. Consider 6 month follow-up MRI to ensure stability.
Findings of known pancreatitis with hypoenhancement in the pancreatic body suspicious for necrotizing pancreatitis. There is no peripancreatic cyst or collection. There is fluid within the retroperitoneal tissues, similar to prior.
There is a filling defect within the anterior aspect of the splenic vein extending to the confluence of the portal vein consistent with nonocclusive thrombus.
Cholelithiasis. The common bile duct appears diminutive without definite filling defect to suggest choledocholithiasis, although would be difficult to exclude. There is apparent wall thickening of the common bile duct which may represent an element
of cholangitis.
Small right and trace left pleural effusions with adjacent atelectasis. There is small volume perihepatic and perisplenic free fluid.
Prior GI Procedures: Per patient report, EGD and Colonoscopy 10 years ago at [facility]- No significant results
ABD CT 08/17/2024
FINDINGS: CT of the abdomen and pelvis is performed with intravenous contrast and without oral contrast, per the emergency department CT protocol.
Linear densities within the visualized posterior lower lungs, compatible with mild to moderate linear atelectasis.
There is no significant pleural effusion bilaterally.
There is a minimal anterior pericardial effusion, unlikely to be clinically significant.
Coronary artery calcifications are present. Please correlate with symptoms of and risk factors for coronary artery disease, with further workup as clinically appropriate. Mild elevation right hemidiaphragm.
There are are small calcified gallstones within dependent neck of the gallbladder. Mild gallbladder wall thickening which is nonspecific.
No evidence for significant biliary ductal dilation. There is enlargement of the pancreas with a moderate amount of surrounding edema and fluid in the retroperitoneal fascial planes. Findings are compatible with pancreatitis. There is relatively
decreased enhancement of the head through the proximal tail the pancreas compared to the distal tail, which is likely decreased enhancement associated with pancreatitis. No evidence of a focal collection to suggest an abscess or pseudocyst at this
time.
There is fluid extending inferiorly within the retroperitoneal fascial planes. There is a small amount of fluid adjacent to the liver in the right upper quadrant and adjacent to the medial and inferior spleen in the left upper quadrant.
The main portal vein and its branches appear patent as well as the splenic vein and the SMV.
There is a peripherally calcified splenic artery aneurysm, best seen on coronal image 43 of series 202, and this has diameter 1.5 cm. A follow-up CT angiography of the abdomen with attention the splenic artery is recommended, initial timeframe of 6
months.
The left adrenal gland appears normal.
In the medial and posterior right upper quadrant, there is a 2.8 cm mass which is arising between the lateral aspect of the superior right adrenal gland and the medial right lobe of the liver. This could either represent an exophytic adrenal mass or
a hepatic mass. Based on location, with slightly favor a hepatic mass. When clinically feasible, further evaluation with dedicated MRI of the abdomen without and with contrast is recommended.
The liver has craniocaudal dimension of 24.2 cm, which is enlarged. No other focal abnormality of the liver.
Spleen appears within normal limits.
Moderate vascular calcification. Tortuosity of the vasculature with no aortic aneurysm. There is aneurysmal dilation of the left internal iliac artery, seen on image 76 of series 201, with short axis diameter of 2.0 cm.
No significantly enlarged abdominal or pelvic lymph nodes are identified.
Mild gaseous distention of the colon, likely mild adynamic ileus.
Note is made of a lipoma within the right gluteal region, and this lipoma measures 12 cm transverse by 6 cm AP.
Mild levoconvex scoliosis of the lumbar spine. Changes of degenerative disc disease with vacuum disc phenomenon at L2-3.
Mild degenerative change of both hip joints. Mild degenerative change of the sacroiliac joints.
IMPRESSION: Coronary artery calcifications are present. Please correlate with symptoms of and risk factors for coronary artery disease, with further workup as clinically appropriate.
Small calcified gallstones within the dependent neck of the gallbladder. No evidence for biliary ductal dilation.
CT findings compatible with pancreatitis with significant surrounding edema. Edema within the retroperitoneal fascial planes extending into the left paracolic gutter. There is also edema extending into the right and left upper quadrant adjacent to
the liver and spleen.
Liver is enlarged.
There is a focal rounded mass in the region of the medial right lobe liver adjacent to the lateral margin of the superior right adrenal gland. This could either originates from the liver or the adrenal gland. Further evaluation with MRI of the
abdomen without and with contrast is recommended when clinically feasible.
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 Follow-up CT angiography with attention to the splenic artery is recommended in 6 months.
Moderate vascular calcification. 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
Mild gaseous distention of the colon, likely mild adynamic ileus.
Lipoma within the right gluteal region.
EGD:
Colonoscopy:
Assessment / Plan
-
Assessment
Mr. Aj is a 68 years old male with a past medical history of chronic back pain with spinal stenosis, HTN, HLD, GERD, NIDDM and four episodes of diverticulitis who was admitted to the hospital for severe abdominal pain associated with nausea
and shortness of breath to feeling pressure on his chest related to his abdominal distention. At admission, patient's lab results was remarkable for an increased level of WBC 17.7, bicarb 17, elevated lactic acid 6, elevated lipase over 4000. His
abdominal CT showed ' pancreatitis with significant surrounding edema and also edema within the retroperitoneal fascial planes extending into the left paracolic gutter and into the right and left upper quadrant adjacent to the liver and spleen.
Additionally , adynamic ileus, enlarged liver and hepatic lesion was seen. Following day, an abdominal MRI was obtained which showed necrotizing pancreatitis and fluid within the retroperitoneal tissues and a filling defect within the anterior
aspect of the splenic vein extending to the confluence of the portal vein consistent with nonocclusive thrombus. Also MRI noted Cholelithiasis/ without definite filling defect to suggest choledocholithiasis/wall thickening of the common bile duct
which may represent an element of cholangitis. Patient's lab results shows trending down LFTs, lipase level is still over 4000, TB slightly decreased to 2.3, calcium normal.
Impression
Necrotizing pancreatitis
Abdominal distention
Hepatic lesion
Mild DKA
GERD
History of diverticulitis
Hypertension
Hyperlipidemia
Diabetes mellitus
Plan
#Necrotizing pancreatitis complicated with ileus possibly secondary to gallstone
-MRI of abdomen: Hypoenhancement in the pancreatic body suspicious for necrotizing pancreatitis. There is no peripancreatic cyst or collection. There is fluid within the retroperitoneal tissues, similar to prior.//Cholelithiasis. The common bile
duct appears diminutive without definite filling defect to suggest choledocholithiasis, although would be difficult to exclude. There is apparent wall thickening of the common bile duct which may represent an element of cholangitis.
-MRI of the abdomen: A filling defect within the anterior aspect of the splenic vein extending to the confluence of the portal vein consistent with nonocclusive thrombus: Possibly related to pancreatitis
-Lipase is still over 4000
-TB decreased to 2.3 from 2.5 -Ca normal
-Lactic acid trending down
-AST decreased to 59 from 83-WNL//ALT decreased to 59 from 89///ALP 58 WNL
-NPO for now
-Continue IV fluids LR at 200 cc until some improvement with abdominal pain
-Continue empiric antibiotics
-TG pending
-Follow-up daily LFTs,TB, CBC, Ca
#Abdominal distention secondary to adynamic ileus due to pancreatitis
-History of chronic constipation
-No bowel regimen planned for now
#Hepatic lesion
-MRI reports noted possibly hemangioma
-Follow-up in 6 months with MRI
-
-
Thank you for consultation and allowing me to participate in the patient's care. Please call the conservation specialist GI physician during the after hours with any questions or concerns.
[2024-08-18 13:22] LABS: Glucose - Point of Care 225 mg/dl (70-99)
[2024-08-18] MEDS: FLUSH (NSS) 1 FLUSH IV (13:38)
[2024-08-18 13:44] LABS: Lactic Acid 3.1 mmol/L (0.7-2.0)
[2024-08-18 15:15] LABS: APTT 34.4 Sec (23.4-35.0)
[2024-08-18] MEDS: NOVOLIN N vial 0.06 UNITS SC (15:23)
[2024-08-18] MEDS: TRANDATE 25 MG PO ×3 (15:27→21:54)
[2024-08-18 15:29] LABS: Triglycerides 129 mg/dl (10-149)
[2024-08-18] MEDS: HEPARIN 25000 UNITS/250 ML IV (15:42)
[2024-08-18] MEDS: NSS IV (15:54)
[2024-08-18] MEDS: LR 1000 IV ×2 (16:13→21:53)
--- NOTE | 2024-08-18 17:44 | PTCARENOTE ---
Patient remains NPO. Heparin drip started at 2000units/20mls/hr. Starting PTT 34.4 next PTT 2200. Medicating with pain medication as ordered. 4L 02 spo2 92-95%. IV fluids and antibiotic infusing as ordered.
[2024-08-18] MEDS: LIPITOR 10 MG PO (18:25)
[2024-08-18] MEDS: NOVOLOG FLEXPEN-MODERATE RESISTANCE 1 UNITS SC (18:30)
[2024-08-18 18:46] LABS: Glucose - Point of Care 183 mg/dl (70-99)
[2024-08-18] MEDS: LANTUS 0.09 UNITS SC (21:53)
[2024-08-18 22:02] LABS: APTT 70.1 Sec (23.4-35.0)
[2024-08-18 22:03] LABS: Glucose - Point of Care 183 mg/dl (70-99)
[2024-08-18 22:03] LABS: Lactic Acid 2.6 mmol/L (0.7-2.0)
[2024-08-18] MEDS: HEPARIN 5000 UNITS IV (22:11)
[2024-08-19] VITALS (20 sets, daily range): BP systolic 107–164; BP diastolic 44–112; PULSE 99–100; O2SAT 93; BMI 43.9
[2024-08-19] MEDS: NOVOLOG FLEXPEN-MODERATE RESISTANCE 3 UNITS SC ×2 (00:54→06:08)
[2024-08-19 01:05] LABS: Glucose - Point of Care 200 mg/dl (70-99)
--- NOTE | 2024-08-19 01:24 | PTCARENOTE ---
Pt continues with abdominal pain/bloating/tenderness. Abdomen distended/round/firm. No bm in 3 days. Pt reports absence of flatus. RN IMCU notified. Orders written for simethicone and senokot.
[2024-08-19] MEDS: SENOKOT-S 1 TABLET PO (02:02)
[2024-08-19] MEDS: LR IV (02:02)
[2024-08-19] MEDS: HEPARIN 25000 UNITS/250 ML IV ×2 (04:24→19:21)
[2024-08-19] MEDS: ZOSYN 50 IV ×4 (04:26→21:28)
[2024-08-19] MEDS: MYLICON 80 MG PO (04:33)
[2024-08-19] MEDS: LR 1000 IV ×4 (04:33→21:28)
[2024-08-19] MEDS: SYNTHROID 200 MCG PO (04:34)
[2024-08-19 04:51] LABS: APTT 135.4 Sec (23.4-35.0)
[2024-08-19 04:53] LABS: % Basophils 0.5 % (0-2); % Immature Granulocytes 2.5 % (0-0.5); Absolute Basophils 0.1 10^3/uL (0-0.2); Absolute Immature Granulocytes 0.4 10^3/uL (0-0.05); Absolute Lymphocytes 1.2 10^3/uL (1.2-3.4); Absolute Monocytes 1.2 10^3/uL (0.1-0.6); Absolute Neutrophils 12.1 10^3/uL (1.4-6.5); Hematocrit 44.4 % (39.0-52.0); Hemoglobin 15.6 g/dL (13.0-18.0); Mean Corp Hgb Conc. 35.1 g/dL (33.0-37.0); Mean Corpuscular Hgb 32.2 pg (27.0-31.0); Mean Corpuscular Volume 91.7 fL (80.0-94.0); Mean Platelet Volume 10.3 fL (7.4-10.4); Nucleated Red Blood Cells % 0 % (-); Platelet Count 184 10^3/uL (130-400); Red Blood Cell Count 4.84 10^6/uL (4.70-6.10); Red Cell Dist. Width 13.9 % (11.5-14.5); White Blood Cell Count 14.9 10^3/uL (4.8-10.8)
[2024-08-19 04:53] LABS: Lactic Acid 2.7 mmol/L (0.7-2.0)
[2024-08-19 04:57] LABS: ALT (SGPT) 48 U/L (0-50); AST (SGOT) 55 U/L (17-59); Albumin 3.1 g/dl (3.5-5.0); Alkaline Phosphatase 52 U/L (38-126); Blood Urea Nitrogen 49 mg/dl (9-20); Calcium 8.1 mg/dl (8.4-10.2); Carbon Dioxide 24 mmol/L (22-30); Chloride 101 mmol/L (98-107); Estimated Creatinine Clearance 64 ml/min; Glucose 186 mg/dl (70-99); Potassium 3.8 mmol/L (3.5-5.1); Sodium 134 mmol/L (135-145); Total Bilirubin 2.5 mg/dl (0.2-1.3); Total Protein 5.3 g/dl (6.3-8.2); eGFR 49.47
[2024-08-19 06:18] LABS: Glucose - Point of Care 223 mg/dl (70-99)
[2024-08-19 06:46] LABS: Lipase 3107 U/L (23-300)
[2024-08-19] MEDS: PROTONIX IV 40 MG IV (07:44)
[2024-08-19] MEDS: NSS (PRESERVATIVE FREE) 10 ML IV (07:45)
[2024-08-19] MEDS: TRANDATE PO (07:50)
[2024-08-19] MEDS: VASOTEC 20 MG PO ×2 (07:52→21:27)
[2024-08-19] MEDS: DILAUDID 0.5 MG IV ×2 (07:53→13:14)
[2024-08-19] MEDS: ZOFRAN 4 MG IV ×2 (07:54→22:55)
[2024-08-19 09:11] LABS: C-Reactive Protein > 270.00 mg/L (0.0-10.00)
--- NOTE | 2024-08-19 10:13 | CON.ONC ---
Impression
Impression
suspected nonocclusive thrombus splenic vein
Necrotizing pancreatitis
ileus
posterior medial right hepatic lobe which is likely benign and may represent an atypical hemangioma
Mild DKA
Plan
Plan
check splenic Doppler
if Doppler confirms splenic thrombus continue heprin gtt with plan to transition to DOAC at discharge x 3 months if repeat doppler is negative. Would consider provoked by pancreatitis.
check b/l LE US
check baseline ddimer, however, I suspect will be elevated in setting of acute illness.
repeat MRI 6 months for continued surveillance of posterior medial right hepatic lobe suspected atypical hemangioma
Patient History
History of Present Illness
69yo M presented 3/4 with abdominal pain and bloating. He reports constipation, abdominal bloating affecting ability to take deep breaths, and abdominal pain for 2 days leading up to ER evaluation. initial evaluation was notable for WBC 17.7, Hgb
19gd/L, Hct 52, MCV 89.8, platelet count 330,000, BUN 177, creatinine 1.2, lactic acid 6.4, Tbili 2.5, AST 83, ALT 89, Alkphos 76, LDH 341, lipase >4000. CT ab/pelvis shows pancreatitis, focal rounded mass medial R lobe of the liver originating from
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 MRI abdomen shows a 2.6 x 2.0 cm exophytic, nonenhancing lesion along the posterior medial right hepatic lobe which is likely benign and may
represent an atypical hemangioma, possible necrotizing pancreatitis, cholelithiasis with possible cholangitis, and filling defect in the splenic vein concerning for nonocclusive thrombus. He has been admitted, started on IVabx, IVF, IV narcotics,
and heparin gtt. Bcx are negative to date.
Clinically, he denies fever, chills, cough, chest pain, palpitations. His abdominal pain and discomfort has improved with IV hydromorphone and his nausea has improved with ondansetron. He reports had colonoscopy and endoscopy about 10 years ago at
[facility] which which was normal.
Afebrile, no hypoxia or hypotension.
Past-Medical/Surgical History
Past Medical History:
Diabetes Mellitus, Type II
Essential Hypertension
Hyperlipidemia
Hypothyroidism
Spinal Stenosis
GERD
Class II Obesity
CAD
gallstones
Past Surgical History:
Tonsillectomy
Social non-smoker, rare ETOH, denies recreational drugs. Lives alone. Retired [employer] manager
Family: sister thyroid cancer, otherwise denies malignancy, bleeding or clotting disorders
Patient Medication
�Medication �Instructions �Recorded �Confirmed �Last Taken �Type
aspirin 325 mg tablet 325 mg PO QIDPRN PRN mild pain 08/17/24 08/17/24 08/17/24 History
atorvastatin 10 mg tablet 10 mg PO QPM High Cholesterol 08/17/24 08/17/24 08/16/24 History
docusate sodium 100 mg tablet 100 mg PO BID Constipation 08/17/24 08/17/24 08/16/24 History
enalapril maleate 20 mg tablet 20 mg PO BID Blood Pressure 08/17/24 08/17/24 08/17/24 History
hydrochlorothiazide 25 mg tablet 25 mg PO DAILY Blood Pressure 08/17/24 08/17/24 08/17/24 History
labetalol 100 mg tablet 25 mg PO DAILYPRN PRN racing heart 08/17/24 08/17/24 Unknown History
labetalol 100 mg tablet 25 mg PO TID Blood Pressure 08/17/24 08/17/24 08/17/24 History
levothyroxine 200 mcg tablet 200 mcg PO DAILY Thyroid 08/17/24 08/17/24 08/16/24 History
(Levoxyl)
metoprolol succinate 25 mg 25 mg PO DAILYPRN PRN racing heart 08/17/24 08/17/24 Unknown History
tablet,extended release 24 hr
omeprazole 20 mg capsule,delayed 20 mg PO DAILY Gastrointestinal 08/17/24 08/17/24 08/16/24 History
release Issue
therapeutic multivitamin 1 tab PO DAILY Supplement 08/17/24 08/17/24 08/16/24 History
vitamin B complex 1 tab PO DAILY Supplement 08/17/24 08/17/24 08/16/24 History
Active Medications
Generic Name Dose Route Start Last Admin
Trade Name Freq PRN Reason Stop Dose Admin
Acetaminophen 650 mg 08/17/24 23:40
Acetaminophen 325 Mg Tablet PO 09/14/24 23:39
Q4HPRN PRN
mild pain/ fever>100.5F
Atorvastatin Calcium 10 mg 08/18/24 18:00 08/18/24 18:25
Atorvastatin (Lipitor) 10 Mg Tablet PO 09/15/24 17:59 10 mg
QPM NELLY Administration
Bisacodyl 10 mg 08/19/24 00:57
Bisacodyl 10 Mg Rectal Suppository RECTAL 09/16/24 00:56
DAILYPRN PRN
constipation
Dextrose 12.5 grams 08/17/24 23:40
Dextrose 50% (0.5 Grams/Ml) 50 Ml Syringe IV 09/14/24 23:39
[id number] PRN
hypoglycemia
Protocol
Enalapril Maleate 20 mg 08/18/24 08:00 08/19/24 07:52
Enalapril 10 Mg Tablet PO 09/15/24 07:59 20 mg
BID NELLY Administration
Glucagon 1 mg 08/17/24 23:40
Glucagon 1 Mg Vial IM 09/14/24 23:39
PRN PRN
hypoglycemia
Protocol
Heparin Sodium 10,000 units 08/18/24 13:56
Heparin 80 Units/Kg Iv Rebolus IV 09/15/24 13:55
PRN PRN
PTT < OR = 64 seconds
Heparin Sodium 5,000 units 08/18/24 13:56 08/18/24 22:11
Heparin 40 Units/Kg Iv Rebolus IV 09/15/24 13:55 5,000 units
PRN PRN Administration
PTT = 64.1 to 72.9 seconds
Hydromorphone HCl 0.5 mg 08/17/24 23:40 08/19/24 07:53
Hydromorphone 0.5 Mg/0.5 Ml Syringe IV 08/31/24 23:39 0.5 mg
Q3HPRN PRN Administration
severe pain
Piperacillin Sod/Tazobactam Sod 3.375 gram in 50 mls @ 100 mls/hr 08/18/24 04:00 08/19/24 04:26
Zosyn IV 50 mls
Q6H NELLY Administration
Insulin Glargine 9 units/ 0.09 mls @ 0 mls/hr 08/18/24 22:00 08/18/24 21:53
Device SC 09/15/24 21:59 0.09 mls
HS NELLY Administration
As Directed
Heparin Sodium 25,000 units in 250 mls @ 0 mls/hr 08/18/24 14:00 08/19/24 04:24
Heparin 92055 Units/250 Ml IV 250 mls
PER PROTOCOL NELLY Administration
Protocol
Per Protocol
Lactated Ringer's 1,000 mls @ 200 mls/hr 08/18/24 15:00 08/19/24 09:19
Lr IV 1,000 mls
.Q5H NELLY Administration
Insulin Aspart 0 units 08/18/24 06:00 08/19/24 06:08
Insulin Aspart Moderate Resistance 300 Units/3 Ml Pen.Injctr SC 09/15/24 05:59 3 units
Q6 NELLY Administration
Protocol
Labetalol HCl 25 mg 08/18/24 13:45 08/19/24 07:50
Labetalol 100 Mg Tablet PO 09/15/24 13:44 Not Given
TID NELLY
Levothyroxine Sodium 200 mcg 08/18/24 06:00 08/19/24 04:34
Levothyroxine 200 Mcg Tablet PO 09/15/24 05:59 200 mcg
DAILY @ 0600 NELLY Administration
Ondansetron HCl 4 mg 08/17/24 23:40 08/19/24 07:54
Ondansetron 4 Mg/2 Ml Vial IV 09/14/24 23:39 4 mg
Q6HPRN PRN Administration
NAUSEA/VOMITING
Pantoprazole Sodium 40 mg 08/18/24 08:00 08/19/24 07:44
Pantoprazole Sodium 40 Mg/10 Ml Vial IV 09/15/24 07:59 40 mg
DAILY NELLY Administration
Simethicone 80 mg 08/19/24 00:57 08/19/24 04:33
Simethicone 80 Mg Chewable Tablet PO 09/16/24 00:56 80 mg
QIDPRN PRN Administration
gas pain/bloat
Sodium Chloride 0 flush 08/17/24 23:00 08/18/24 13:38
Sodium Chloride 0.9% (Flush) Syringe IV 09/14/24 22:59 1 flush
PER PROTOCOL NELLY Administration
Sodium Chloride 10 ml 08/18/24 08:00 08/19/24 07:45
Sodium Chloride 0.9% (Preservative Free) 10 Ml Vial IV 09/15/24 07:59 10 ml
DAILY NELLY Administration
Review of Systems
-
ROS is notable for HPI, otherwise negative
Physical Exam
-
General: No Apparent Distress, Conversant and Obese
HEENT: Moist Mucous Membranes; Negative Jaundice
Cardiology: Normal Sinus Rhythm
Pulmonary: Clear
GI: Other (TTP epigastric region, firm, distended)
Extremities: Pulses Present and Edema (b/l LE )
Neurology: Non Focal
Skin: Warm
Psych: Calm
Labs
Lab Results
WBC 14.9 10^3/uL (4.8-10.8) H 08/19/24 04:17
RBC 4.84 10^6/uL (4.70-6.10) 08/19/24 04:17
Hgb 15.6 g/dL (13.0-18.0) 08/19/24 04:17
Hct 44.4 % (39.0-52.0) 08/19/24 04:17
MCV 91.7 fL (80.0-94.0) 08/19/24 04:17
MCH 32.2 pg (27.0-31.0) H 08/19/24 04:17
MCHC 35.1 g/dL (33.0-37.0) 08/19/24 04:17
RDW 13.9 % (11.5-14.5) 08/19/24 04:17
Plt Count 184 10^3/uL (130-400) 08/19/24 04:17
MPV 10.3 fL (7.4-10.4) 08/19/24 04:17
Abs Immat Gran (auto) 0.4 10^3/uL (0-0.05) H 08/19/24 04:17
Absolute Neuts (auto) 12.1 10^3/uL (1.4-6.5) H 08/19/24 04:17
Absolute Lymphs (auto) 1.2 10^3/uL (1.2-3.4) 08/19/24 04:17
Absolute Monos (auto) 1.2 10^3/uL (0.1-0.6) H 08/19/24 04:17
Absolute Eos (auto) 0.0 10^3/uL (0-0.7) 08/19/24 04:17
Absolute Basos (auto) 0.1 10^3/uL (0-0.2) 08/19/24 04:17
Immature Gran % 2.5 % (0-0.5) H 08/19/24 04:17
Neutrophils % 81.0 % (42.2-75.2) H 08/19/24 04:17
Lymphocytes % 8.0 % (20.5-51.1) L 08/19/24 04:17
Monocytes % 8.0 % (1.7-9.3) 08/19/24 04:17
Eosinophils % 0.0 % (0-6) 08/19/24 04:17
Basophils % 0.5 % (0-2) 08/19/24 04:17
Creatinine 1.5 mg/dL (0.7-1.3) H 08/19/24 04:17
Vital Signs
Vital Signs
Temp Pulse Resp BP Pulse Ox
98.1 F 98 27 147/84 95
08/19/24 07:00 08/19/24 08:00 08/19/24 08:00 08/19/24 07:52 08/19/24 08:00
--- NOTE | 2024-08-19 11:51 | W.PN.GI.CBS2 ---
Addendum entered and electronically signed by Edin Rooney MD 08/19/24 12:37:
I saw and evaluated the patient. I reviewed the resident�s note and agree with findings and plan as documented in the resident�s note.
No BMs or flatus. Abd pain stable
ABD soft distended, moderate tenderness diffusely
REC:
Keep NPO and await return of bowel function
CRP markedly elevated >270 due to necrotizing pancreatitis due to gallstones. No CBD stone on MRI. Continue to follow
Continue LR at 200cc/hr. Cr up a little more to 1.5
Heme checking doppler US to confirm SVT
Rpt MRI in 6 months for atypical hemangioma
Will follow closely
Original Note:
Today's Communication / Plan
-
-No bowel movement since admission
-A fev sips of clear liquids can be started, can advance to clear liquids if patient can tolerate
-Follow-up daily CRP, LFTs,TB, CBC, Ca, Cr
-Follow up closely for MSOF
Assessment / Plan
-
Assessment
Mr. Aj is a 68 years old male with a past medical history of chronic back pain with spinal stenosis, HTN, HLD, GERD, NIDDM and four episodes of diverticulitis who was admitted to the hospital for severe abdominal pain associated with nausea
and shortness of breath to feeling pressure on his chest related to his abdominal distention. At admission, patient's lab results was remarkable for an increased level of WBC 17.7, bicarb 17, elevated lactic acid 6, elevated lipase over 4000. His
abdominal CT showed ' pancreatitis with significant surrounding edema and also edema within the retroperitoneal fascial planes extending into the left paracolic gutter and into the right and left upper quadrant adjacent to the liver and spleen.
Additionally , adynamic ileus, enlarged liver and hepatic lesion was seen. Following day, an abdominal MRI was obtained which showed necrotizing pancreatitis and fluid within the retroperitoneal tissues and a filling defect within the anterior
aspect of the splenic vein extending to the confluence of the portal vein consistent with nonocclusive thrombus. Also MRI noted Cholelithiasis/ without definite filling defect to suggest choledocholithiasis/wall thickening of the common bile duct
which may represent an element of cholangitis. Patient's lab results shows trending down LFTs, lipase level is still over 4000, TB slightly decreased to 2.3, calcium normal.
On today's exam, patient reports slightly improvement with his abdominal pain and abdominal distention, no bowel movements/gas passing since admission. patient will try taking a few sips of clears.
Impression
Necrotizing pancreatitis
Abdominal distention
Hepatic lesion
Gallstones
Mild DKA
GERD
History of diverticulitis
Hypertension
Hyperlipidemia
Diabetes mellitus
Plan
#Necrotizing pancreatitis complicated with ileus possibly secondary to gallstone
-MRI of abdomen: Hypoenhancement in the pancreatic body suspicious for necrotizing pancreatitis. There is no peripancreatic cyst or collection. There is fluid within the retroperitoneal tissues, similar to prior.//Cholelithiasis. The common bile
duct appears diminutive without definite filling defect to suggest choledocholithiasis, although would be difficult to exclude. There is apparent wall thickening of the common bile duct which may represent an element of cholangitis.
-MRI of the abdomen: A filling defect within the anterior aspect of the splenic vein extending to the confluence of the portal vein consistent with nonocclusive thrombus: Possibly related to pancreatitis: Doppler planning to confirm splenic thrombus
with a plan of heparin drip/ transition to DOAC at discharge
-Lipase trended down to 3107 from > 4000
-Lactic acid trending down
-TB 2.5
-AST /ALT trended down to normal limits
-Clear sips can be started-
-Continue IV fluids
-Continue empiric antibiotics
-TG 129
-Follow-up daily CRP, LFTs,TB, CBC, Ca, Cr
-Will follow closely for MSOF
#Abdominal distention secondary to adynamic ileus due to pancreatitis
-History of chronic constipation
-No bowel regimen planned for now
#Hepatic lesion
-MRI reports noted possibly hemangioma
-Appreciate for oncology/hematology assessment
-Follow-up in 6 months with MRI, per oncology
Subjective
Subjective
Date of Service: August 19, 2024
Patient reports having some better rated his abdominal pain 6/10 and noting his yesterday`s pain 7-8/10. Denies any bowel movements since admission, denies flatulence since admission. Feels still distended and bloated. He did try a few sips of
water without abdominal pain.
Objective
Data Reviewed
Laboratory Data:
Laboratory Results
08/19/24 04:17
08/19/24 04:17
Laboratory Results
APTT 135.4 Sec (23.4-35.0) H 08/19/24 04:17
Total Bilirubin 2.5 mg/dl (0.2-1.3) H 08/19/24 04:17
AST 55 U/L (17-59) 08/19/24 04:17
ALT 48 U/L (0-50) 08/19/24 04:17
Alkaline Phosphatase 52 U/L (38-126) 08/19/24 04:17
Lipase 3107 U/L (23-300) H* 08/19/24 04:17
Vital Signs and I&O:
Vital Signs
Temp Pulse Resp BP Pulse Ox
98.5 F 98 27 147/84 95
08/19/24 11:24 08/19/24 08:00 08/19/24 08:00 08/19/24 07:52 08/19/24 08:00
I&O
08/18/24 08/19/24 08/20/24
06:59 06:59 06:59
Intake Total 1630 / 1630 4035 / 4035
Output Total 300 / 300 1005 / 1005
Balance 1330 / 1330 3030 / 3030
Physical Exam
Physical Exam
HEENT: Anicteric and Moist mucous membranes
Cardiology: Normal Sinus Rhythm, S1 and S2
Pulmonary: Clear
GI: Distended, Tender and Tense
Extremities: No Edema
Neuro: Non Focal
--- NOTE | 2024-08-19 11:57 | W.PN.HOSP.TC ---
Today's Communication/Plan
-
monitor vitals
see plan
cw IVF
trend lactate
CXR
US per heme
cw IV hep
wean o2 as tolerated
pain control
discussed with sister over the phone
Assessment / Plan
Assessment / Plan
General: Well Developed, Well Nourished and Conversant
HEENT: NormoCephalic, Moist mucous membranes and Atraumatic
Respiratory: Clear and Non Labored Respirations
Cardiac: S1/S2 and Regular Rhythm
GI: Tender, and Distended
Musculoskeletal: mild Edema
Neuro: Awake, Alert, Oriented and Nonfocal/grossly intact
Psych: Calm
Acute / Severe Pancreatitis, necrotizing
MRI with necrotizing pancreatitis, filling defect within the anterior aspect of splenic vein extending to the confluence of portal vein consistent with nonocclusive thrombus. This is likely secondary to necrotizing pancreatitis
per MRI, cholelithiasis. Apparent wall thickening of the common bile duct which may present an element of cholangitis.
GI following; no CBD dilation
hematology following for thrombus; cw IV hep. venous US LE
Start IV heparin
NPO
monitor lipase
fluids
cw abx
TGLwnl,IGG4 pending
Acute hypoxic respiratory insufficiency
on 4L; wean o2 as tolerated
IS
Suspect atelectasis
Check chest x-ray
Metabolic / Lactic Acidosis, suspect more related to acute/severe pancreatitis
-Continue to trend Lactic Acid Level
Diabetes Mellitus, Type II - Uncontrolled
-B-Hydroxybutyrate slightly elevated
cw lantus; cw sliding scalre; accuchecks
--HgbA1c 6.9
hyponatremia
monitor
VIPUL
check urine lytes
bladder scan
monitor
Pyuria
unclear if has UTI; will monitor
urine cx without significant growth
2.6 cm exophytic, nonenhancing lesion along the posterior medial right hepatic lobe likely benign atypical hemangioma. Repeat MRI in 6 months to ensure stability
Essential Hypertension
-Continue enalapril
-Hold HCTZ
cw labtealol
Hyperlipidemia
-Continue atorvastatin
Hypothyroidism
-Continue levothyroxine
GERD
-Continue Protonix
Class II Obesity
-Affects all aspects of care
DVT proph: heparin
Code Status: Full Code
I spent a total of 52 minutes with the patient or on the floor. More than 50% of this time involved counseling and coordination of care.
Anticipated Discharge: > 48 hours
Subjective/Interval History
-
Date of Service: August 19, 2024
has abdominal discomfort
Objective Data
-
Labs:
Laboratory Results
08/19/24 08/19/24
04:17 11:55
WBC 14.9 H
Hgb 15.6
Hct 44.4
Plt Count 184
APTT 135.4 H Pending
Sodium 134 L
Potassium 3.8
Chloride 101
Carbon Dioxide 24
BUN 49 H
Creatinine 1.5 H
Glucose 186 H
Calcium 8.1 L
Total Bilirubin 2.5 H
AST 55
ALT 48
Alkaline Phosphatase 52
Vital Signs:
Vital Signs
Temp Pulse Resp BP Pulse Ox
98.5 F 98 27 147/84 95
08/19/24 11:24 08/19/24 08:00 08/19/24 08:00 08/19/24 07:52 08/19/24 08:00
I&O
08/18/24 08/19/24 08/20/24
06:59 06:59 06:59
Intake Total 1630 / 1630 4035 / 4035
Output Total 300 / 300 1005 / 1005
Balance 1330 / 1330 3030 / 3030
[2024-08-19 12:01] LABS: Glucose - Point of Care 186 mg/dl (70-99)
[2024-08-19 12:15] LABS: APTT 73.2 Sec (23.4-35.0)
[2024-08-19 12:22] LABS: Lactic Acid 2.7 mmol/L (0.7-2.0)
[2024-08-19 12:25] LABS: D-Dimer 10.28 ug/mlFEU (0.00-0.50)
[2024-08-19] MEDS: NOVOLOG FLEXPEN-MODERATE RESISTANCE 1 UNITS SC ×2 (12:48→19:20)
--- NOTE | 2024-08-19 14:24 | PTCARENOTE ---
Patient off of unit to radiology and ultra sound for testing. Heparin drip at 1900units/19mls/hr. Last PTT 73.2 next PTT at 1845. Patient remains on 4L of, lungs diminished throughout. Patient having hard time taking deep breaths. Sp02 91%-94%
short of breath on exertion. Out of bed to chair with PT/OT assist x1. SR/ST with PVS.
[2024-08-19 16:24] LABS: Urine Sodium < 5 mmol/L (30-90)
--- NOTE | 2024-08-19 16:55 | CM ---
Patient with Dx Acute / Severe Pancreatitis, necrotizing. CXR today - pleural effusion. O2 4L. NPO/IVF. Receiving Heparin gtt, IV Abx. Per nurse assessment; forgetful. PT/OT; requires assist of 2, recommend skilled rehab.
Plan speak with patient about his rehab needs.
Plan follow for possible O2 needs at d/c.
[2024-08-19] MEDS: TRANDATE 25 MG PO ×2 (17:47→21:27)
[2024-08-19] MEDS: LIPITOR 10 MG PO (17:50)
[2024-08-19 18:30] LABS: Glucose - Point of Care 189 mg/dl (70-99)
[2024-08-19 18:37] LABS: Lactic Acid 2.5 mmol/L (0.7-2.0)
[2024-08-19 18:39] LABS: APTT 74.7 Sec (23.4-35.0)
[2024-08-19 19:15] LABS: C-Reactive Protein > 270.00 mg/L (0.0-10.00)
[2024-08-19] MEDS: LANTUS 0.12 UNITS SC (21:28)
[2024-08-19 21:39] LABS: Glucose - Point of Care 210 mg/dl (70-99)
[2024-08-19 23:19] LABS: Lactic Acid 1.9 mmol/L (0.7-2.0)
[2024-08-20] VITALS (8 sets, daily range): BP systolic 119–169; BP diastolic 76–105; BMI 44.3
[2024-08-20] MEDS: NOVOLOG FLEXPEN-MODERATE RESISTANCE 1 UNITS SC ×5 (00:16→23:51)
[2024-08-20 00:25] LABS: Glucose - Point of Care 196 mg/dl (70-99)
[2024-08-20] MEDS: PEPCID 20 MG IV (01:23)
[2024-08-20] MEDS: LR 1000 IV ×4 (01:23→22:47)
--- NOTE | 2024-08-20 03:36 | PTCARENOTE ---
Pt c/o 'heartburn, a new cough, and trouble breathing'. [employer] notified. SaO2 95% on 4LNC. No obvious cough noted. Respiratory effort appears same as prior. One time order for IV pepcid given. Pt resting comfortably in bed at this time. Call bravo and
belongings within reach. Care ongoing.
[2024-08-20] MEDS: SYNTHROID 200 MCG PO (05:03)
[2024-08-20] MEDS: ZOSYN 50 IV ×4 (05:03→21:07)
[2024-08-20 05:13] LABS: Glucose - Point of Care 172 mg/dl (70-99)
[2024-08-20 05:55] LABS: % Basophils 0.2 % (0-2); % Immature Granulocytes 0.8 % (0-0.5); % Lymphocytes 9.2 % (20.5-51.1); % Monocytes 9.1 % (1.7-9.3); % Neutrophils 80.7 % (42.2-75.2); Absolute Immature Granulocytes 0.1 10^3/uL (0-0.05); Absolute Neutrophils 8.7 10^3/uL (1.4-6.5); Hematocrit 40.5 % (39.0-52.0); Hemoglobin 13.8 g/dL (13.0-18.0); Mean Corp Hgb Conc. 34.1 g/dL (33.0-37.0); Mean Corpuscular Hgb 32.1 pg (27.0-31.0); Mean Corpuscular Volume 94.2 fL (80.0-94.0); Mean Platelet Volume 10.6 fL (7.4-10.4); Nucleated Red Blood Cells % 0 % (-); Platelet Count 167 10^3/uL (130-400); Red Cell Dist. Width 14.1 % (11.5-14.5); White Blood Cell Count 10.8 10^3/uL (4.8-10.8)
[2024-08-20 06:02] LABS: APTT 79.4 Sec (23.4-35.0)
[2024-08-20 06:22] LABS: Lactic Acid 2.4 mmol/L (0.7-2.0)
[2024-08-20 06:25] LABS: ALT (SGPT) 43 U/L (0-50); AST (SGOT) 37 U/L (17-59); Alkaline Phosphatase 66 U/L (38-126); Blood Urea Nitrogen 44 mg/dl (9-20); Calcium 8.1 mg/dl (8.4-10.2); Carbon Dioxide 29 mmol/L (22-30); Chloride 96 mmol/L (98-107); Estimated Creatinine Clearance 70 ml/min; Glucose 173 mg/dl (70-99); Potassium 3.8 mmol/L (3.5-5.1); Sodium 135 mmol/L (135-145); Total Bilirubin 2.3 mg/dl (0.2-1.3); Total Protein 5.2 g/dl (6.3-8.2); eGFR 53.74
[2024-08-20 06:42] LABS: C-Reactive Protein > 270.00 mg/L (0.0-10.00)
--- NOTE | 2024-08-20 08:31 | PTCARENOTE ---
on walking rounds pt AAOx3, Heparin gtt at 9ml/hr. LLR continues at 200 hr. Pt is cont B/B. Remains NPO with meds
--- NOTE | 2024-08-20 08:35 | W.PN.ONC2 ---
Today's Communication / Plan
-
.
Impression
Impression
suspected nonocclusive thrombus splenic vein on MRI, however, No evidence of splenic vein thrombosis on doppler US
lower extremity edema - US b/l LE negative for DVT
Necrotizing pancreatitis
ileus
posterior medial right hepatic lobe which is likely benign and may represent an atypical hemangioma
Mild DKA
Plan
Plan
No splenic thrombosis on doppler US abdomen so no indication for therapeutic anticoagulation. Would recommend standard DVT ppx while hospitalized and repeat Doppler US abdomen in 2 weeks.
repeat MRI 6 months for continued surveillance of posterior medial right hepatic lobe suspected atypical hemangioma
No further hematology recommendations, we will sign off. Please reach out for any further questions or concerns
Subjective/Objective
Subjective
no new complaints
Vital Signs:
Vital Signs
Temp Pulse Resp BP Pulse Ox
98.1 F 85 22 150/85 93
08/20/24 07:39 08/20/24 06:00 08/20/24 06:00 08/20/24 06:00 08/20/24 06:00
Lab Results:
Laboratory Data
WBC 10.8 10^3/uL (4.8-10.8) 08/20/24 05:27
Hgb 13.8 g/dL (13.0-18.0) 08/20/24 05:27
Plt Count 167 10^3/uL (130-400) 08/20/24 05:27
APTT 79.4 Sec (23.4-35.0) H 08/20/24 05:27
eGFR 53.74 08/20/24 05:27
Orders
Orders
Orders From Last 24 Hours
08/19/24 10:54
US Abdominal Doppler Only Routine
08/19/24 11:07
Add On- LAB Routine
US Legs, Bilateral [US Periph Venous LOWER Ext Alo] Routine
[2024-08-20] MEDS: TRANDATE 25 MG PO ×3 (08:43→21:07)
[2024-08-20] MEDS: VASOTEC 20 MG PO ×2 (08:44→21:08)
[2024-08-20] MEDS: NSS (PRESERVATIVE FREE) 10 ML IV (08:46)
[2024-08-20] MEDS: PROTONIX IV 40 MG IV (08:47)
[2024-08-20 08:59] LABS: Lipase 539 U/L (23-300)
[2024-08-20] MEDS: HEPARIN 25000 UNITS/250 ML IV (09:36)
--- NOTE | 2024-08-20 09:53 | W.PN.GI.CBS2 ---
Addendum entered and electronically signed by Dona Barron MD 08/20/24 14:37:
I saw and evaluated the patient. I reviewed the resident�s note and agree with findings and plan as documented in the resident�s note.
Pt wants liquids, states no bm
abd: distended mild tenderness
impression:
necrotizing pancreatitis
ileus
plan:
npo
suppository
trial of clears if does well today
IVF
Original Note:
Today's Communication / Plan
-
-Rectal suppository was planned to be given this a.m./no bowel movement since Friday
-Continue IV hydration
-Starting clear liquid diet can be considered if patient tolerates without abdominal pain
-Follow-up creatinine/ slightly up since admission/likely trending down
-Will follow-up for MSOF
-Abdominal Doppler US: No evidence of splenic vein thrombosis
Assessment / Plan
-
Assessment
Mr. Aj is a 68 years old male with a past medical history of chronic back pain with spinal stenosis, HTN, HLD, GERD, NIDDM and four episodes of diverticulitis who was admitted to the hospital for severe abdominal pain associated with nausea
and shortness of breath to feeling pressure on his chest related to his abdominal distention. At admission, patient's lab results was remarkable for an increased level of WBC 17.7, bicarb 17, elevated lactic acid 6, elevated lipase over 4000. His
abdominal CT showed ' pancreatitis with significant surrounding edema and also edema within the retroperitoneal fascial planes extending into the left paracolic gutter and into the right and left upper quadrant adjacent to the liver and spleen.
Additionally , adynamic ileus, enlarged liver and hepatic lesion was seen. Following day, an abdominal MRI was obtained which showed necrotizing pancreatitis and fluid within the retroperitoneal tissues and a filling defect within the anterior
aspect of the splenic vein extending to the confluence of the portal vein consistent with nonocclusive thrombus. Also MRI noted Cholelithiasis/ without definite filling defect to suggest choledocholithiasis/wall thickening of the common bile duct
which may represent an element of cholangitis. Patient's lab results shows trending down LFTs, lipase level is still over 4000, TB slightly decreased to 2.3, calcium normal.
On today's exam, patient reports still feeling distended and bloated no bowel movements/gas passing since admission. Patient was able to tolerate 3 cups of water yesterday without abdominal pain.
Impression
Necrotizing pancreatitis
Abdominal distention
Hepatic lesion
Gallstones
Mild DKA
GERD
History of diverticulitis
Hypertension
Hyperlipidemia
Diabetes mellitus
Plan
#Necrotizing pancreatitis complicated with ileus possibly secondary to gallstone
-MRI of abdomen: Hypoenhancement in the pancreatic body suspicious for necrotizing pancreatitis. There is no peripancreatic cyst or collection. There is fluid within the retroperitoneal tissues, similar to prior.//Cholelithiasis. The common bile
duct appears diminutive without definite filling defect to suggest choledocholithiasis, although would be difficult to exclude. There is apparent wall thickening of the common bile duct which may represent an element of cholangitis.
-MRI of the abdomen: A filling defect within the anterior aspect of the splenic vein extending to the confluence of the portal vein consistent with nonocclusive thrombus: Possibly related to pancreatitis: Abdominal Doppler US: No evidence of
splenic vein thrombosis
-Lipase trended down to 539 from > 4000
-Lactic acid trending down -seems slightly increased this am to 2.4
-TB 2.3
-AST /ALT trended down to normal limits
-Clear sips can be started-
-Continue IV fluids
-Continue empiric antibiotics
-TG 129
-Follow-up daily CRP, LFTs,TB, CBC, Ca, Cr
-Follow closely for MSOF (creatinine 1.4 this a.m.)
#Abdominal distention secondary to adynamic ileus due to pancreatitis
-History of chronic constipation
-Rectal suppository was planned today
#Hepatic lesion
-MRI reports noted possibly hemangioma
-Appreciate for oncology/hematology assessment
-Follow-up in 6 months with MRI, per oncology
Subjective
Subjective
Date of Service: August 20, 2024
Patient reports drinking about 3 cups of water yesterday without exacerbation of his abdominal pain. Reports feeling very distended and reports not having any bowel movements or flatus since Friday.
Objective
Data Reviewed
Laboratory Data:
Laboratory Results
08/20/24 05:27
08/20/24 05:27
Laboratory Results
APTT 79.4 Sec (23.4-35.0) H 08/20/24 05:27
Total Bilirubin 2.3 mg/dl (0.2-1.3) H 08/20/24 05:27
AST 37 U/L (17-59) 08/20/24 05:27
ALT 43 U/L (0-50) 08/20/24 05:27
Alkaline Phosphatase 66 U/L (38-126) 08/20/24 05:27
Lipase 539 U/L (23-300) H 08/20/24 05:27
Vital Signs and I&O:
Vital Signs
Temp Pulse Resp BP Pulse Ox
98.1 F 98 22 158/85 93
08/20/24 07:39 08/20/24 08:44 08/20/24 06:00 08/20/24 08:44 08/20/24 06:00
I&O
08/19/24 08/20/24 08/21/24
06:59 06:59 06:59
Intake Total 4035 / 4035 2300 / 2300
Output Total 1005 / 1005 1730 / 1730 500 / 500
Balance 3030 / 3030 570 / 570 -500 / -500
Physical Exam
Physical Exam
HEENT: Anicteric and Moist mucous membranes
Cardiology: Normal Sinus Rhythm, S1 and S2
Pulmonary: Clear
GI: Distended and Tender (Mild tenderness)
Extremities: No Edema
Neuro: Non Focal
--- NOTE | 2024-08-20 10:28 | CM ---
Patient with Dx Necrotizing pancreatitis complicated with ileus. O2 4L. NPO/IVF. Receiving Heparin gtt, IV Abx. PT/OT; requires assist of 2, recommend skilled rehab.
Met with patient;
he expressed how uncomfortable he was, saying he has been unable to move his bowels and unable to take fluids. He does not want to consider his mobility needs/d/c needs at this time, and wants to wait and see how he progresses with PT/OT.
Plan watch for any O2 needs at d/c.
Plan follow patient's mobility.
Plan follow up with patient for d/c plans.
[2024-08-20] MEDS: DULCOLAX 10 MG RECTAL (10:34)
--- NOTE | 2024-08-20 10:45 | PTCARENOTE ---
Pt given supp as ordered
--- NOTE | 2024-08-20 11:47 | W.PN.HOSP.TC ---
Today's Communication/Plan
-
monitor vitals
see plan
wean o2 as tolerated; monitor volume status and need for lasix
cw abx
NPO for now; if improving then trial of clears
dulcolax
discussed with hematology; stop IV heparin as no splenic vein thrombus on US
Assessment / Plan
Assessment / Plan
General: Well Developed, Well Nourished and Conversant
HEENT: NormoCephalic, Moist mucous membranes and Atraumatic
Respiratory: Clear and Non Labored Respirations
Cardiac: S1/S2 and Regular Rhythm
GI: Tender, and Distended
Musculoskeletal: mild Edema
Neuro: Awake, Alert, Oriented and Nonfocal/grossly intact
Psych: Calm
Acute / Severe Pancreatitis, necrotizing
MRI with necrotizing pancreatitis, filling defect within the anterior aspect of splenic vein extending to the confluence of portal vein consistent with nonocclusive thrombus. This is likely secondary to necrotizing pancreatitis
per MRI, cholelithiasis. Apparent wall thickening of the common bile duct which may present an element of cholangitis.
GI following; no CBD dilation
hematology following for thrombus; US / neg for thrombus. Discussed with Dr. Hodges from hematology, will stop heparin since ultrasound is negative for thrombus
NPO, consider clears if improving
monitor lipase
fluids
cw abx
TGLwnl,IGG4 pending
Acute hypoxic respiratory insufficiency
on 4L; wean o2 as tolerated
IS
Suspect atelectasis
Check chest x-ray with mild interstitial edema with pleural effusion, monitor closely, reports feeling better. he did got a lot fluids due to pancreatitis. will check US chest to assess pleural effusion
check echo
constipation
suppository
monitor
once pancreatitis improving then start laxatives
Metabolic / Lactic Acidosis, suspect more related to acute/severe pancreatitis
-Continue to trend Lactic Acid Level
Diabetes Mellitus, Type II - Uncontrolled
-B-Hydroxybutyrate slightly elevated on admission
cw lantus; cw sliding scale; accuchecks
--HgbA1c 6.9
hyponatremia
monitor
VIPUL
check urine lytes
bladder scan
monitor
Pyuria
unclear if has UTI; will monitor
urine cx without significant growth
2.6 cm exophytic, nonenhancing lesion along the posterior medial right hepatic lobe likely benign atypical hemangioma. Repeat MRI in 6 months to ensure stability
Essential Hypertension
-Continue enalapril
-Hold HCTZ
cw labtealol
Hyperlipidemia
-Continue atorvastatin
Hypothyroidism
-Continue levothyroxine
GERD
-Continue Protonix
Class II Obesity
-Affects all aspects of care
DVT proph: heparin
Code Status: Full Code
I spent a total of 51 minutes with the patient or on the floor. More than 50% of this time involved counseling and coordination of care.
Anticipated Discharge: > 48 hours
Subjective/Interval History
-
Date of Service: August 20, 2024
reports improving a little
Objective Data
-
Labs:
Laboratory Results
08/20/24
05:27
WBC 10.8
Hgb 13.8
Hct 40.5
Plt Count 167
APTT 79.4 H
Sodium 135
Potassium 3.8
Chloride 96 L
Carbon Dioxide 29
BUN 44 H
Creatinine 1.4 H
Glucose 173 H
Calcium 8.1 L
Total Bilirubin 2.3 H
AST 37
ALT 43
Alkaline Phosphatase 66
Vital Signs:
Vital Signs
Temp Pulse Resp BP Pulse Ox
98.5 F 82 24 158/85 94
08/20/24 11:28 08/20/24 10:00 08/20/24 10:00 08/20/24 08:44 08/20/24 10:00
I&O
08/19/24 08/20/24 08/21/24
06:59 06:59 06:59
Intake Total 4035 / 4035 2300 / 2300
Output Total 1005 / 1005 1730 / 1730 500 / 500
Balance 3030 / 3030 570 / 570 -500 / -500
[2024-08-20 12:17] LABS: Glucose - Point of Care 184 mg/dl (70-99)
[2024-08-20 15:40] LABS: Lactic Acid 1.5 mmol/L (0.7-2.0)
[2024-08-20] MEDS: HEPARIN 5000 UNITS SC ×2 (16:21→23:50)
[2024-08-20 18:25] LABS: Glucose - Point of Care 174 mg/dl (70-99)
[2024-08-20] MEDS: LIPITOR 10 MG PO (18:35)
[2024-08-20] MEDS: ZOFRAN 4 MG IV (19:29)
--- NOTE | 2024-08-20 19:38 | PTCARENOTE ---
Pt c/o nausea without vomiting. Medicated with Zofran prn as ordered. Also requesting a 400ml cup of water. Pt NPO except for meds with sips of clears. Pt unhappy with no being able to have a full cup of water. Small cup of water will be offered
with pt's po pills as meds due. Pt resting comfortably. Call bravo remains within reach. Will continue to monitor.
[2024-08-20] MEDS: LANTUS 0.12 UNITS SC (21:06)
[2024-08-20] MEDS: DILAUDID 0.5 MG IV (21:06)
[2024-08-20 21:16] LABS: Glucose - Point of Care 187 mg/dl (70-99)
[2024-08-20] MEDS: LR IV (22:47)
[2024-08-21] VITALS (12 sets, daily range): BP systolic 153–181; BP diastolic 84–106; BMI 45.1
[2024-08-21 00:44] LABS: IgG Subclass 4 27 mg/dL (1-123)
--- NOTE | 2024-08-21 03:02 | PTCARENOTE ---
Pt received resting in bed watching TV. BREA AAOx3. Offered many complaints as soon as this RN walked in room. Pt requesting large cup of water. Large cup sitting at bedside empty. Pt is NPO x meds w/sips clears. Pt instructed he could receive mouth
swabs but declined. Stated he will leave AMA if he doesn't receive cups of water. IVF's infusing at 200ml/hr. Pt nauseas and was given Zofran with good relief. Pt also received pain med for abd discomfort with good relief. Using urinal in bed
urinating adequate amounts of devon urine. VSS. Afebrile. SR/PVC on CM rate 70-80's. POX on 4L NC 94%. Will TT ENVIRONMENTAL TECHNICAL OFFICER regarding pt wanting cups of water with NPO status order. Call bravo remains within reach. Will continue to monitor.
--- NOTE | 2024-08-21 04:00 | PTCARENOTE ---
Sandeep DAVIS spoke with pt re: concern for wanting to drink a lot of water. Agreement pt will accept cup of ice for now. Understands he is in for US Chest in the am to assess pleural effusion and whether he may need Lasix. His weight is up this am
322lbs. Currently resting comfortable. Call bravo remains within reach. Will continue to monitor.
--- NOTE | 2024-08-21 04:03 | W.PN.UPDATE ---
Update Note
Progress Note Update
RN addressed to ISSUER. Patient wanting to leave AMA as he is not getting his large glass of water. Patient seen and evaluated, Addressed the current condition and risks of drinking too much water at present. Addressed the risks of going home at
present. patient agreed to cup of ice chips for now. Agreed to stay.
[2024-08-21] MEDS: ZOSYN 50 IV ×4 (04:12→23:36)
[2024-08-21] MEDS: SYNTHROID 200 MCG PO (04:14)
[2024-08-21 04:48] LABS: % Basophils 0.2 % (0-2); % Eosinophils 0.3 % (0-6); % Lymphocytes 8.5 % (20.5-51.1); % Monocytes 9.9 % (1.7-9.3); % Neutrophils 80.1 % (42.2-75.2); Absolute Immature Granulocytes 0.1 10^3/uL (0-0.05); Absolute Lymphocytes 0.9 10^3/uL (1.2-3.4); Absolute Neutrophils 8.4 10^3/uL (1.4-6.5); Hematocrit 37.5 % (39.0-52.0); Hemoglobin 12.8 g/dL (13.0-18.0); Mean Corp Hgb Conc. 34.1 g/dL (33.0-37.0); Mean Corpuscular Hgb 32.2 pg (27.0-31.0); Mean Corpuscular Volume 94.5 fL (80.0-94.0); Mean Platelet Volume 10.3 fL (7.4-10.4); Nucleated Red Blood Cells % 0 % (-); Platelet Count 155 10^3/uL (130-400); Red Blood Cell Count 3.97 10^6/uL (4.70-6.10); Red Cell Dist. Width 13.5 % (11.5-14.5); White Blood Cell Count 10.5 10^3/uL (4.8-10.8)
[2024-08-21 05:08] LABS: Lactic Acid 1.3 mmol/L (0.7-2.0)
[2024-08-21 05:11] LABS: ALT (SGPT) 45 U/L (0-50); AST (SGOT) 35 U/L (17-59); Albumin 2.7 g/dl (3.5-5.0); Alkaline Phosphatase 71 U/L (38-126); Blood Urea Nitrogen 31 mg/dl (9-20); Calcium 8.1 mg/dl (8.4-10.2); Carbon Dioxide 30 mmol/L (22-30); Chloride 99 mmol/L (98-107); Estimated Creatinine Clearance 99 ml/min; Glucose 183 mg/dl (70-99); Potassium 3.7 mmol/L (3.5-5.1); Sodium 135 mmol/L (135-145); Total Bilirubin 1.9 mg/dl (0.2-1.3); Total Protein 4.9 g/dl (6.3-8.2); eGFR > 60.00
[2024-08-21] MEDS: NOVOLOG FLEXPEN-MODERATE RESISTANCE 1 UNITS SC ×2 (05:25→14:12)
[2024-08-21] MEDS: LR 1000 IV ×4 (05:26→23:41)
[2024-08-21 05:28] LABS: Glucose - Point of Care 195 mg/dl (70-99)
[2024-08-21] MEDS: HEPARIN 5000 UNITS SC ×3 (08:41→23:38)
[2024-08-21] MEDS: VASOTEC 20 MG PO ×2 (08:43→19:10)
[2024-08-21] MEDS: PROTONIX IV 40 MG IV (08:43)
[2024-08-21] MEDS: TRANDATE 25 MG PO (08:43)
[2024-08-21] MEDS: NSS (PRESERVATIVE FREE) 10 ML IV (08:43)
[2024-08-21] MEDS: DULCOLAX 10 MG RECTAL (08:46)
[2024-08-21 11:54] LABS: Glucose - Point of Care 168 mg/dl (70-99)
--- NOTE | 2024-08-21 11:55 | W.PN.HOSP.TC ---
Today's Communication/Plan
-
decrease IVF
cont Abx
wean off O2
cont incentive spirometry
Assessment / Plan
Assessment / Plan
68yo M with PMHx of HTN, HLD, DM sent from PCP with abdominal pain and bloating, found necrotising pancreatitis.
A/P:
#Acute gallstone necrotizing pancreatitis complicated with possible cholangitis
#Elevated bili 2/2 above
Follow LFT
IVF
advance diet
GI conault
Might need cholecystectomy on this admission
Triglycerides WNL
CA WNL
IGG4 27 (WNL)
Zosyn
Bcx NTD
#Acute hypoxic respiratory insufficiency
most likely 2/2 IVF, JABIER with obesity, atelectasis
Incentive spirometry
decrease rate
#VIPUL
resolved
follow Cr
#Ileus 2/2 pancreatitis with constipation
Laxatives
passing gas
follow and correct electrolytes
#Filling defect seen in splenic vein on MRI
US doppler did not confirm thrombus, heparin stopped as per discussion with life skills educator
#Hepatic atypical hemangioma
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
2.6 x 2.0 cm exophytic, nonenhancing lesion along the posterior medial right hepatic lobe which is likely benign
repeat MRI in [address] angio of splenic artery in 6mo
#DM type 2 with neuropathy
Accuchecks, Insulin SS, DM diet when able to eat
#Pyuria
Ucx without significant growth, already on Zosyn
#HLD
#Hypothyroidism
#GERD
cont home meds
TSH WNL
#Morbid obesity
BMI 45.0
Advice to decrease calorie intake
#DJD
tylenol
PT/OT
DVT ppx hep
Full code
I have spent at least 56min reviewing chart, test results, communication with consultantants and diirect patient care
Anticipated Discharge: > 48 hours
Subjective/Interval History
-
Date of Service: August 21, 2024
Objective Data
-
Labs:
Laboratory Results
08/21/24
04:24
WBC 10.5
Hgb 12.8 L
Hct 37.5 L
Plt Count 155
Sodium 135
Potassium 3.7
Chloride 99
Carbon Dioxide 30
BUN 31 H
Creatinine 1.0
Glucose 183 H
Calcium 8.1 L
Total Bilirubin 1.9 H
AST 35
ALT 45
Alkaline Phosphatase 71
Vital Signs:
Vital Signs
Temp Pulse Resp BP Pulse Ox
98.1 F 82 26 178/104 95
08/21/24 07:32 08/21/24 10:00 08/21/24 10:00 08/21/24 08:50 08/21/24 08:50
I&O
08/20/24 08/21/24 08/22/24
06:59 06:59 07:59
Intake Total 2300 / 2300 4800 / 4800
Output Total 1730 / 1730 1700 / 1700
Balance 570 / 570 3100 / 3100
--- NOTE | 2024-08-21 14:18 | W.PN.GI.CBS2 ---
Today's Communication / Plan
-
clear liquids
abd flat plate
Assessment / Plan
-
Impression
Necrotizing pancreatitis likely secondary to gallstones
Abdominal distention/ileus
Hepatic lesion likely benign
Gallstones
Mild DKA
GERD
History of diverticulitis
Hypertension
Hyperlipidemia
Diabetes mellitus
Plan
- clear liquids
- IV fluids
- abdominal flat plate before further advancing diet
-Continue empiric antibiotics
-TG 129, IGG4 normal
-rectal suppository
- surgical input for timing of cholecystectomy would be helpful during the admission
#Hepatic lesion
-MRI reports noted possibly hemangioma
-Appreciate for oncology/hematology assessment
-Follow-up in 6 months with MRI, per oncology
Subjective
Subjective
Date of Service: August 21, 2024
Pt wants to eat, minimal pain
Objective
Data Reviewed
Laboratory Data:
Laboratory Results
08/21/24 04:24
08/21/24 04:24
Laboratory Results
APTT 79.4 Sec (23.4-35.0) H 08/20/24 05:27
Total Bilirubin 1.9 mg/dl (0.2-1.3) H 08/21/24 04:24
AST 35 U/L (17-59) 08/21/24 04:24
ALT 45 U/L (0-50) 08/21/24 04:24
Alkaline Phosphatase 71 U/L (38-126) 08/21/24 04:24
Lipase 539 U/L (23-300) H 08/20/24 05:27
Vital Signs and I&O:
Vital Signs
Temp Pulse Resp BP Pulse Ox
98.3 F 82 26 178/104 95
08/21/24 11:55 08/21/24 10:00 08/21/24 10:00 08/21/24 08:50 08/21/24 08:50
I&O
08/20/24 08/21/24 08/22/24
06:59 06:59 07:59
Intake Total 2300 / 2300 4800 / 4800 200 / 200
Output Total 1730 / 1730 1700 / 1700 900 / 900
Balance 570 / 570 3100 / 3100 -700 / -700
Physical Exam
Physical Exam
GI: Soft and Distended
--- NOTE | 2024-08-21 14:47 | CM ---
PT rec SNF
options discussed with patient
Will look at list & get back to CM
PLAN: SNF, pending bed availability when medically stable.
[2024-08-21] MEDS: TRANDATE 50 MG PO ×2 (16:00→23:39)
--- NOTE | 2024-08-21 16:30 | PTCARENOTE ---
Patient refusing increased dose of trandate- broke in half and took the 25mg he normally takes
[2024-08-21] MEDS: LIPITOR 10 MG PO (17:31)
[2024-08-21] MEDS: NOVOLOG FLEXPEN-MODERATE RESISTANCE 3 UNITS SC (17:31)
[2024-08-21 17:40] LABS: Glucose - Point of Care 228 mg/dl (70-99)
--- NOTE | 2024-08-21 18:55 | PTCARENOTE ---
Pt received at beginning of shift resting in bed. Forgetful. Can be uncooperative at times. Tolerating clear liquid diet. IVF's infusing as ordered. VSS. Afebrile. SR/PVC on Cm rate 70-80's. POX #L NC 94%. Abdomen grossly distended. Passing flatus
per pt. Using urinal in bed. Rest of assessment as documented. Instructed on turns. Pt states he understands but not turning self. Placed on Q2hr turns. Skin intact. Call bravo remains within reach. Will continue to monitor.
[2024-08-21] MEDS: DILAUDID 0.5 MG IV (19:09)
[2024-08-21 21:56] LABS: Glucose - Point of Care 197 mg/dl (70-99)
[2024-08-21] MEDS: LANTUS 0.12 UNITS SC (23:37)
[2024-08-22] VITALS (14 sets, daily range): BP systolic 141–167; BP diastolic 81–106; BMI 45.5
[2024-08-22] MEDS: ZOFRAN 4 MG IV ×2 (03:51→16:45)
[2024-08-22] MEDS: SYNTHROID 200 MCG PO (03:51)
[2024-08-22] MEDS: ZOSYN 50 IV ×4 (03:51→21:02)
--- NOTE | 2024-08-22 04:00 | PTCARENOTE ---
Pt c/o nausea. No vomiting. Medicated with Zofran. Will continue to monitor.
--- NOTE | 2024-08-22 05:09 | W.PN.GI.CBS2 ---
Today's Communication / Plan
-
continue clears
IVFs
Assessment / Plan
-
Impression
Necrotizing pancreatitis likely secondary to gallstones
Abdominal distention/ileus
Hepatic lesion likely benign
Gallstones
Mild DKA
GERD
History of diverticulitis
Hypertension
Hyperlipidemia
Diabetes mellitus
xray done yesterday with nonobstructive bowel gas, hazy with no distinct stool
Plan
- clear liquids
- zofran
- IV fluids
- suppository/docusate
-Continue empiric antibiotics
- Likely reimage early this week
- surgical input for timing of cholecystectomy would be helpful
#Hepatic lesion
-MRI reports noted possibly hemangioma
-Appreciate for oncology/hematology assessment
-Follow-up in 6 months with MRI, per oncology
Subjective
Subjective
Date of Service: August 22, 2024
Pt had clears yesterday. Still has nausea but tolerated it. Fixated with bowels and wants regimen of suppository and docusate
Did get out of bed yesterday
Did have a small bm with suppository
Objective
Data Reviewed
Laboratory Data:
Laboratory Results
APTT 79.4 Sec (23.4-35.0) H 08/20/24 05:27
Total Bilirubin 1.9 mg/dl (0.2-1.3) H 08/21/24 04:24
AST 35 U/L (17-59) 08/21/24 04:24
ALT 45 U/L (0-50) 08/21/24 04:24
Alkaline Phosphatase 71 U/L (38-126) 08/21/24 04:24
Lipase 539 U/L (23-300) H 08/20/24 05:27
Vital Signs and I&O:
Vital Signs
Temp Pulse Resp BP Pulse Ox
98 F 80 26 162/94 94
08/22/24 03:00 08/22/24 00:00 08/22/24 00:00 08/21/24 23:39 08/21/24 18:21
I&O
08/20/24 08/21/24 08/22/24
06:59 06:59 07:59
Intake Total 2300 / 2300 4800 / 4800 200 / 200
Output Total 1730 / 1730 1700 / 1700 1570 / 1570
Balance 570 / 570 3100 / 3100 -1370 / -1370
Physical Exam
Physical Exam
GI: Soft, Distended (mild improvement) and Normal Bowel Sounds (positive bowel sounds)
Neuro: Non Focal
[2024-08-22 05:10] LABS: % Basophils 0.2 % (0-2); % Eosinophils 1.5 % (0-6); % Immature Granulocytes 2.5 % (0-0.5); % Lymphocytes 10.7 % (20.5-51.1); % Monocytes 10.8 % (1.7-9.3); % Neutrophils 74.3 % (42.2-75.2); Absolute Eosinophils 0.1 10^3/uL (0-0.7); Absolute Immature Granulocytes 0.2 10^3/uL (0-0.05); Absolute Neutrophils 7.1 10^3/uL (1.4-6.5); Hematocrit 35.3 % (39.0-52.0); Hemoglobin 12.3 g/dL (13.0-18.0); Mean Corp Hgb Conc. 34.8 g/dL (33.0-37.0); Mean Corpuscular Hgb 32.4 pg (27.0-31.0); Mean Corpuscular Volume 92.9 fL (80.0-94.0); Mean Platelet Volume 10.4 fL (7.4-10.4); Nucleated Red Blood Cells % 0 % (-); Platelet Count 171 10^3/uL (130-400); Red Cell Dist. Width 13.4 % (11.5-14.5); White Blood Cell Count 9.6 10^3/uL (4.8-10.8)
[2024-08-22 05:33] LABS: ALT (SGPT) 63 U/L (0-50); AST (SGOT) 49 U/L (17-59); Albumin 2.5 g/dl (3.5-5.0); Alkaline Phosphatase 85 U/L (38-126); Blood Urea Nitrogen 22 mg/dl (9-20); Calcium 7.9 mg/dl (8.4-10.2); Carbon Dioxide 30 mmol/L (22-30); Chloride 99 mmol/L (98-107); Estimated Creatinine Clearance 111 ml/min; Glucose 152 mg/dl (70-99); Lipase 147 U/L (23-300); Potassium 3.7 mmol/L (3.5-5.1); Sodium 132 mmol/L (135-145); Total Bilirubin 1.5 mg/dl (0.2-1.3); Total Protein 4.6 g/dl (6.3-8.2); eGFR > 60.00
[2024-08-22 08:18] LABS: Glucose - Point of Care 166 mg/dl (70-99)
[2024-08-22] MEDS: COLACE 100 MG PO ×2 (08:21→21:03)
[2024-08-22] MEDS: TRANDATE 50 MG PO ×3 (08:21→21:03)
[2024-08-22] MEDS: VASOTEC 20 MG PO ×2 (08:21→21:04)
[2024-08-22] MEDS: DULCOLAX 10 MG RECTAL (08:22)
[2024-08-22] MEDS: NSS (PRESERVATIVE FREE) 10 ML IV (08:23)
[2024-08-22] MEDS: PROTONIX IV 40 MG IV (08:23)
[2024-08-22] MEDS: HEPARIN 5000 UNITS SC ×3 (08:23→23:50)
[2024-08-22] MEDS: NOVOLOG FLEXPEN-MODERATE RESISTANCE 1 UNITS SC ×2 (08:39→16:51)
[2024-08-22] MEDS: LR 1000 IV (10:39)
--- NOTE | 2024-08-22 12:21 | W.PN.HOSP.TC ---
Today's Communication/Plan
-
Cont IVF, GenSx eval, cont CLD as per GI
Assessment / Plan
Assessment / Plan
68yo M with PMHx of HTN, HLD, DM sent from PCP with abdominal pain and bloating, found necrotizing pancreatitis.
A/P:
#Acute gallstone necrotizing pancreatitis complicated with possible cholangitis
#Elevated bili 2/2 above
Follow LFT
IVF
advance diet
GI conault
Might need cholecystectomy on this admission -GeneralSx consult
Triglycerides WNL
CA WNL
IGG4 27 (WNL)
Zosyn
Bcx NTD
#Acute hypoxic respiratory insufficiency
most likely 2/2 IVF, JABIER with obesity, atelectasis
Incentive spirometry
decrease rate
#VIPUL
resolved
follow Cr
#Ileus 2/2 pancreatitis with constipation
Laxatives
passing gas
follow and correct electrolytes
#Filling defect seen in splenic vein on MRI
US doppler did not confirm thrombus, heparin stopped as per discussion with salad bar clerk
#Hepatic atypical hemangioma
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
2.6 x 2.0 cm exophytic, nonenhancing lesion along the posterior medial right hepatic lobe which is likely benign
repeat MRI in [address] angio of splenic artery in 6mo
#DM type 2 with neuropathy
Accuchecks, Insulin SS, DM diet when able to eat
#Pyuria
Ucx without significant growth, already on Zosyn
#HLD
#Hypothyroidism
#GERD
cont home meds
TSH WNL
#Morbid obesity
BMI 45.0
Advice to decrease calorie intake
#DJD
tylenol
PT/OT
DVT ppx hep
Full code
I have spent at least 56min reviewing chart, test results, communication with consultantants and diirect patient care
Anticipated Discharge: 24 - 48 hours
Subjective/Interval History
-
Date of Service: August 22, 2024
Objective Data
-
Labs:
Laboratory Results
08/22/24
04:45
WBC 9.6
Hgb 12.3 L
Hct 35.3 L
Plt Count 171
Sodium 132 L
Potassium 3.7
Chloride 99
Carbon Dioxide 30
BUN 22 H
Creatinine 0.9
Glucose 152 H
Calcium 7.9 L
Total Bilirubin 1.5 H
AST 49
ALT 63 H
Alkaline Phosphatase 85
Vital Signs:
Vital Signs
Temp Pulse Resp BP Pulse Ox
98 F 75 18 151/88 93
08/22/24 03:00 08/22/24 10:00 08/22/24 10:00 08/22/24 10:00 08/22/24 10:20
I&O
08/21/24 08/22/24 08/23/24
05:59 06:59 06:59
Intake Total 120 / 120
Output Total
Balance 120 / 120
Review of Systems
-
History Source: Patient
All other systems: Reviewed and negative
Physical Exam
-
General: No Apparent Distress
Respiratory: Clear to Auscultation
Cardiac: Regular Rhythm
GI: Soft, Nontender and Nondistended
Skin: Warm
Neuro: Awake, Alert, Oriented and AO x 3
--- NOTE | 2024-08-22 13:02 | CON.GS ---
Addendum entered and electronically signed by Claude Moffett MD 08/23/24 15:36:
Patient seen and examined yesterday afternoon with surgical MANUFACTURING TECHNOLOGY ANALYST. This is a delayed entry. Agree with documented consultation note as outlined below with additions noted here.
HPI: 69-year-old male who presented to the emergency department secondary to the acute onset of abdominal pain, bloating and shortness of breath. No similar episodes in the past. He was unaware of the presence of gallstones. On further
discussions no symptoms suggestive of previous biliary colic. Initially admitted 08/17/2024 by the hospitalist service with GI consultation. With improving lipase surgical consultation was requested for discussions with patient regarding indications
for consideration of cholecystectomy.
At today's evaluation patient reports improvement in his presenting severity of pain but he still has discomfort predominantly in the upper abdomen. Complains of ongoing bloating and distention. His breathing is less labored. He had his first
bowel movement today after suppository. Occasionally passing flatus. Mild nausea but no vomiting.
PMH: Obesity with BMI of 46, NIDDM, hypothyroidism, hypercholesterolemia, GERD, hypertension, previous history of diverticulitis
Patient reports no past abdominal surgical history
AFVSS
NAD AAOx3
ABD: Soft but quite distended. Tenderness palpation epigastrium without rebound rigidity or guarding.
Previous CT, MRCP and ultrasound imaging reviewed. Negative for choledocholithiasis. Small gallstones layering in the dependent portion of the gallbladder. No gallbladder wall thickening or localized pericholecystic edema. Rather severe diffuse
pancreatic inflammation and infiltration of inflammatory process into surrounding soft tissues of the pancreas. MRI suggestive of possible developing necrotizing pancreatitis but no organizing fluid collections yet.
Assessment and plan: 69-year-old male with severe bout of acute biliary pancreatitis, gallstones confirmed on MRI and ultrasound imaging but without cholecystitis. No clinical signs of cholecystitis.
Reviewed with patient indications for prophylactic cholecystectomy. Given patient experiencing severe acute pancreatitis with possible necrotizing component, ongoing ileus and significant abdominal distention we discussed that cholecystectomy at
this time would be of increased risk for both surgical complexity/complications as well as postoperative medical complications. With severe pancreatitis that is generally recommended to defer cholecystectomy until pancreatitis resolved and patient
returns to baseline health and nutritional status.
Please provide patient with my follow-up office information. Consideration of interval cholecystectomy at a later time after recovery from acute illness.
Any of the patient's concerns or questions were confirmed to be fully addressed.
Please call if we can be of further assistance with patient's care.
Original Note:
Consultation
-
Date/Time Consultation Requested: 08/22/24920
Requesting Provider: Humaira
Reason for Consultation: cholecystectomy
Medical History
-
Chief Complaint: upper abdominal pain
History of Present Illness:
Mr Aj is a 69 yo male with a h/o NIDDM, HTN, GERD and morbid obesity who presented through the ED on August 17 with upper abdominal pain and pressure with bloating which began about one day prior to presentation with rapid onset. He felt that
he could not take a deep breath due to the degree of bloating he was having. He reports associated nausea but no vomiting. He denies fevers or chills. He was admitted for management has been followed by gastroenterology throughout his course of stay
with GI work up demonstrating necrotizing pancreatitis. Today, he notes that he is no longer nauseated and has been tolerating clears. Pain is much improved although he does have some residual tenderness and bloating. He has been struggling with
constipation but was able to pass a formed stool today after a suppository.
Past Medical History
Past Medical History: Diverticulitis, GERD, HTN, Hypercholesterolemia, Hypothyroidism, NIDDM and Other (obesity)
Past Surgical History: Tonsilectomy
Social History
Tobacco: Non-Smoker
Alcohol: Occasional (a few times a year)
Family History
Family History: Reviewed & Not Pertinent
Allergies / Home Medications
Allergy/AdvReac Type Severity Reaction Status Date / Time
Tetracyclines Allergy Unknown Verified 08/17/24 17:09
�Medication �Instructions �Recorded �Confirmed �Type
aspirin 325 mg tablet 325 mg PO QIDPRN PRN mild pain 08/17/24 08/17/24 History
atorvastatin 10 mg tablet 10 mg PO QPM High Cholesterol 08/17/24 08/17/24 History
docusate sodium 100 mg tablet 100 mg PO BID Constipation 08/17/24 08/17/24 History
enalapril maleate 20 mg tablet 20 mg PO BID Blood Pressure 08/17/24 08/17/24 History
hydrochlorothiazide 25 mg tablet 25 mg PO DAILY Blood Pressure 08/17/24 08/17/24 History
labetalol 100 mg tablet 25 mg PO DAILYPRN PRN racing heart 08/17/24 08/17/24 History
labetalol 100 mg tablet 25 mg PO TID Blood Pressure 08/17/24 08/17/24 History
levothyroxine 200 mcg tablet 200 mcg PO DAILY Thyroid 08/17/24 08/17/24 History
(Levoxyl)
metoprolol succinate 25 mg 25 mg PO DAILYPRN PRN racing heart 08/17/24 08/17/24 History
tablet,extended release 24 hr
omeprazole 20 mg capsule,delayed 20 mg PO DAILY Gastrointestinal 08/17/24 08/17/24 History
release Issue
therapeutic multivitamin 1 tab PO DAILY Supplement 08/17/24 08/17/24 History
vitamin B complex 1 tab PO DAILY Supplement 08/17/24 08/17/24 History
Review of Systems
-
History Source: Patient
All other systems: Negative unless noted
A 10 point review of systems was completed, and was negative except as per HPI.
Physical Exam
Vital Signs
Temp Pulse Resp BP Pulse Ox
98 F 75 18 151/88 93
08/22/24 03:00 08/22/24 10:00 08/22/24 10:00 08/22/24 10:00 08/22/24 10:20
08/21/24 08/22/24 08/23/24
05:59 06:59 06:59
Actual Weight
Body Mass Index (BMI) 45.5
Lab Results
08/22/24 04:45
08/22/24 04:45
WBC 9.6 10^3/uL (4.8-10.8) 08/22/24 04:45
Hgb 12.3 g/dL (13.0-18.0) L 08/22/24 04:45
Hct 35.3 % (39.0-52.0) L 08/22/24 04:45
Plt Count 171 10^3/uL (130-400) 08/22/24 04:45
Abs Immat Gran (auto) 0.2 10^3/uL (0-0.05) H 08/22/24 04:45
Neutrophils % 74.3 % (42.2-75.2) 08/22/24 04:45
Physical Exam
General: Well Developed and Well Nourished
HEENT: Moist Mucous Membranes
Respiratory: Non Labored Respirations
GI: Soft, Tender (mild to upper left abd into epigastric area), Distended and Obese
Skin: Warm and Dry
Neuro: Awake, Alert and AO x 3
Psych: Calm
Assessment / Plan
-
Mr Aj is a 69 yo male with a h/o NIDDM, HTN, GERD and morbid obesity who presented through the ED on August 17 with upper abdominal pain and pressure with bloating. GI work up with CT followed by MRI early this admission with necrotizing
pancreatitis likely secondary to gallstones. No choledocholithiasis was seen on MRI imaging. There is a liver lesion present which is likely benign but will require outpatient follow up. Initially on heparin gtt for possible portal vein thrombus
which was eventually ruled out with ultrasound. Leukocytosis is resolved. CRP >270 on presentation. Lipase >4K initially, now normalized. Triglycerides normal. Bilirubin as high as 2.5, now trended down to 1.5. He is still mildly hypoxic and
requiring 2L of O2, but vitals otherwise stable.
Discussed the risk of recurrence as well as the risk of another gallstone related events with the patient. Surgical recommendation is to remove the gallbladder after resolution of this episode of pancreatitis, given the degree of inflammation to his
pancreas would more realistically be safer to be preformed as a scheduled outpatient procedure after he has had time to recover. He would like to take some time to consider surgery and is not yet sure if he would want to go this route. Will plan
follow up as an outpatient to continue these discussion.
Diet as per GI
No plans for surgery at this time, will plan outpatient follow up
Surgery to follow peripherally, please call with questions or concerns
[2024-08-22 13:14] LABS: Glucose - Point of Care 205 mg/dl (70-99)
[2024-08-22] MEDS: NOVOLOG FLEXPEN-MODERATE RESISTANCE 3 UNITS SC (14:54)
[2024-08-22 16:40] LABS: Glucose - Point of Care 187 mg/dl (70-99)
[2024-08-22] MEDS: MYLICON 80 MG PO ×2 (16:43→21:03)
[2024-08-22] MEDS: LIPITOR 10 MG PO (16:43)
--- NOTE | 2024-08-22 16:56 | PTCARENOTE ---
Patient with firm, distended abdomen, had a formed stool today after Dulcolax suppository. Patient is complaining of nausea and gas pain at this time. Medicated with Simethicone and Zofran as per doctors orders. Patient is on clear liquid diet
today, no vomiting. Patient out of bed this morning with 2 person assist.
[2024-08-22] MEDS: DILAUDID 0.5 MG IV ×2 (17:38→21:06)
[2024-08-22] MEDS: LR IV (21:05)
[2024-08-22] MEDS: LANTUS 0.12 UNITS SC (21:12)
[2024-08-22 21:23] LABS: Glucose - Point of Care 205 mg/dl (70-99)
[2024-08-23] VITALS (15 sets, daily range): BP systolic 144–169; BP diastolic 83–102; PULSE 78–79; O2SAT 97; BMI 45.9
[2024-08-23] MEDS: APRESOLINE 5 MG IV (02:51)
[2024-08-23] MEDS: SYNTHROID 200 MCG PO (05:19)
[2024-08-23] MEDS: ZOSYN 50 IV ×4 (05:19→21:14)
[2024-08-23] MEDS: LR 1000 IV (05:19)
[2024-08-23 05:46] LABS: Hematocrit 36.8 % (39.0-52.0); Hemoglobin 12.6 g/dL (13.0-18.0); Mean Corp Hgb Conc. 34.2 g/dL (33.0-37.0); Mean Corpuscular Hgb 32.1 pg (27.0-31.0); Mean Corpuscular Volume 93.6 fL (80.0-94.0); Mean Platelet Volume 10.3 fL (7.4-10.4); Platelet Count 191 10^3/uL (130-400); Red Blood Cell Count 3.93 10^6/uL (4.70-6.10); Red Cell Dist. Width 13.5 % (11.5-14.5); White Blood Cell Count 8.9 10^3/uL (4.8-10.8)
[2024-08-23 05:48] LABS: ALT (SGPT) 78 U/L (0-50); AST (SGOT) 53 U/L (17-59); Albumin 2.5 g/dl (3.5-5.0); Alkaline Phosphatase 92 U/L (38-126); Blood Urea Nitrogen 16 mg/dl (9-20); Carbon Dioxide 31 mmol/L (22-30); Chloride 96 mmol/L (98-107); Estimated Creatinine Clearance 111 ml/min; Glucose 174 mg/dl (70-99); Potassium 3.6 mmol/L (3.5-5.1); Sodium 132 mmol/L (135-145); Total Bilirubin 1.3 mg/dl (0.2-1.3); Total Protein 4.6 g/dl (6.3-8.2); eGFR > 60.00
--- NOTE | 2024-08-23 06:02 | PTCARENOTE ---
Pt BP 168/101 @ 02:00. [employer] notified. PRN hydralazine 5mg ordered and given.
[2024-08-23 07:27] LABS: % Basophils 0.2 % (0-2); % Eosinophils 2.7 % (0-6); % Immature Granulocytes 5.7 % (0-0.5); % Lymphocytes 10.5 % (20.5-51.1); % Monocytes 10.5 % (1.7-9.3); % Neutrophils 70.4 % (42.2-75.2); Absolute Eosinophils 0.2 10^3/uL (0-0.7); Absolute Immature Granulocytes 0.5 10^3/uL (0-0.05); Absolute Lymphocytes 0.9 10^3/uL (1.2-3.4); Absolute Monocytes 0.9 10^3/uL (0.1-0.6); Absolute Neutrophils 6.3 10^3/uL (1.4-6.5); Nucleated Red Blood Cells % 0 % (-)
[2024-08-23] MEDS: TRANDATE 50 MG PO ×3 (07:53→21:15)
[2024-08-23] MEDS: PROTONIX IV 40 MG IV (07:53)
[2024-08-23] MEDS: NSS (PRESERVATIVE FREE) 10 ML IV (07:53)
[2024-08-23] MEDS: VASOTEC 20 MG PO ×2 (07:54→21:14)
[2024-08-23] MEDS: HEPARIN 5000 UNITS SC ×2 (07:55→16:59)
[2024-08-23] MEDS: DULCOLAX 10 MG RECTAL (07:56)
[2024-08-23] MEDS: COLACE 100 MG PO ×2 (07:56→21:14)
[2024-08-23 07:58] LABS: Glucose - Point of Care 180 mg/dl (70-99)
[2024-08-23] MEDS: NOVOLOG FLEXPEN-MODERATE RESISTANCE 1 UNITS SC ×3 (08:10→18:39)
--- NOTE | 2024-08-23 08:30 | W.PN.GI.CBS2 ---
Today's Communication / Plan
-
reimage abdomen
Assessment / Plan
-
Impression
Necrotizing pancreatitis likely secondary to gallstones
Abdominal distention/ileus
Hepatic lesion likely benign
Gallstones
Mild DKA
GERD
History of diverticulitis
Hypertension
Hyperlipidemia
Diabetes mellitus
xray done yesterday with nonobstructive bowel gas, hazy with no distinct stool
Plan
- stable with normal wbc, lipase but not progressing
- reimage abdomen to assess pancreas. Pt can not move past clears
-OOB and incentive spirometry
- no major stool but can continue suppositories prn
Subjective
Subjective
Date of Service: August 23, 2024
Pt with one small bm, minimal abd pain but nauseated with clears.
Objective
Data Reviewed
Laboratory Data:
Laboratory Results
08/23/24 04:17
08/23/24 04:17
Laboratory Results
APTT 79.4 Sec (23.4-35.0) H 08/20/24 05:27
Total Bilirubin 1.3 mg/dl (0.2-1.3) 08/23/24 04:17
AST 53 U/L (17-59) 08/23/24 04:17
ALT 78 U/L (0-50) H 08/23/24 04:17
Alkaline Phosphatase 92 U/L (38-126) 08/23/24 04:17
Lipase 147 U/L (23-300) 08/22/24 04:45
Vital Signs and I&O:
Vital Signs
Temp Pulse Resp BP Pulse Ox
98.9 F 72 22 162/102 93
08/23/24 03:00 08/23/24 06:00 08/23/24 06:00 08/23/24 06:00 08/23/24 06:00
I&O
08/22/24 08/23/24 08/24/24
06:59 06:59 06:59
Intake Total 3300 / 3300
Output Total 1150 / 1150
Balance 2149 / 215
Physical Exam
Physical Exam
HEENT: Anicteric
Cardiology: S1 and S2
GI: Distended and Tender (mildly tender)
Neuro: Non Focal
[2024-08-23] MEDS: OMNIPAQUE 50 ML PO (09:50)
--- NOTE | 2024-08-23 13:35 | W.PN.HOSP.TC ---
Today's Communication/Plan
-
Monitor vital signs see plan
CT abdomen
Continue antibiotics
PT/OT, encourage ambulation
Wean oxygen as tolerated
Assessment / Plan
Assessment / Plan
68yo M with PMHx of HTN, HLD, DM sent from PCP with abdominal pain and bloating, found necrotizing pancreatitis.
General: No Apparent Distress
Respiratory: Clear to Auscultation
Cardiac: Regular Rhythm
GI: Soft, Nontender and Nondistended
Skin: Warm
Neuro: Awake, Alert, Oriented and AO x 3
A/P:
#Acute gallstone necrotizing pancreatitis complicated with possible cholangitis
#Elevated bili 2/2 above
Follow LFT
Currently on clears
GI following
Repeat CT abdomen today per GI
Evaluated by surgery, no plans for surgical intervention at this time
Triglycerides WNL
CA WNL
IGG4 27 (WNL)
Zosyn
Bcx NTD
#Acute hypoxic respiratory insufficiency
most likely 2/2 IVF, JABIER with obesity, atelectasis
Incentive spirometry
decrease rate
#VIPUL
resolved
follow Cr
#Ileus 2/2 pancreatitis with constipation
Laxatives
passing gas
follow and correct electrolytes
#Filling defect seen in splenic vein on MRI
US doppler did not confirm thrombus, heparin stopped as per discussion with physical metallurgist
#Hepatic atypical hemangioma
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
2.6 x 2.0 cm exophytic, nonenhancing lesion along the posterior medial right hepatic lobe which is likely benign
repeat MRI in [address] angio of splenic artery in 6mo
#DM type 2 with neuropathy
Accuchecks, Insulin SS, DM diet when able to eat
#Pyuria
Ucx without significant growth, already on Zosyn
Essential Hypertension
-Continue enalapril
-Hold HCTZ
cw labtealol
#HLD
#Hypothyroidism
#GERD
cont home meds
TSH WNL
#Morbid obesity
BMI 45.0
Advice to decrease calorie intake
#DJD
tylenol
PT/OT
DVT ppx hep
Full code
I spent a total of 52 minutes with the patient or on the floor. More than 50% of this time involved counseling and coordination of care.
Anticipated Discharge: 24 - 48 hours
Subjective/Interval History
-
Date of Service: August 23, 2024
denies nausea
Objective Data
-
Labs:
Laboratory Results
08/23/24
04:17
WBC 8.9
Hgb 12.6 L
Hct 36.8 L
Plt Count 191
Sodium 132 L
Potassium 3.6
Chloride 96 L
Carbon Dioxide 31 H
BUN 16
Creatinine 0.9
Glucose 174 H
Calcium 8.0 L
Total Bilirubin 1.3
AST 53
ALT 78 H
Alkaline Phosphatase 92
Vital Signs:
Vital Signs
Temp Pulse Resp BP Pulse Ox
98.2 F 79 20 167/102 95
08/23/24 07:40 08/23/24 11:09 08/23/24 11:09 08/23/24 11:09 08/23/24 11:09
I&O
08/22/24 08/23/24 08/24/24
06:59 06:59 06:59
Intake Total 3300 / 3300
Output Total 1150 / 1150 325 / 325
Balance 2150 / 2150 -325 / -325
[2024-08-23 14:26] LABS: Glucose - Point of Care 158 mg/dl (70-99)
--- NOTE | 2024-08-23 16:18 | CM ---
Patient with Dx Necrotizing pancreatitis complicated with ileus. CT Abdomen/pelvis today. O2 4.5L. Clear liquids. Receiving IV Abx. PT/OT; assist of 2, recommend skilled rehab.
Spoke with patient who states he has 'brain fog', however he was A/O, conversational and asking good questions. He did not review the SNF list he was given, saying he is too weak because he hasn't been eating. Discussed local SNFs near where he
lives [facility], and he wants to contemplate further going to SNF for rehab and will let CM know. He stated specifically that he doesn't want to go to [facility]. He might be interested in [facility] SNF. He doesn't want SNF
referrals made at this time - he wants to see if rehab is needed as he gets better here. The patient stated a concern of who would attend to his home so he can return to it, as he left it in a mess. He has not spoken with his sister Oscar very
much since he has been here and is not sure he wants to bother her with that. Patient inquired about home services after rehab - discussed [facility].
Plan watch for any O2 needs at d/c.
Plan follow patient's mobility.
Plan follow up with patient for d/c plans.
[2024-08-23] MEDS: LIPITOR 10 MG PO (17:10)
[2024-08-23 18:00] LABS: Glucose - Point of Care 175 mg/dl (70-99)
[2024-08-23 21:00] LABS: Glucose - Point of Care 195 mg/dl (70-99)
[2024-08-23] MEDS: LANTUS 0.12 UNITS SC (21:14)
[2024-08-24] VITALS (9 sets, daily range): BP systolic 138–180; BP diastolic 75–114; BMI 45.9
[2024-08-24] MEDS: HEPARIN 5000 UNITS SC ×4 (00:57→23:27)
[2024-08-24] MEDS: ZOFRAN 4 MG IV (01:25)
--- NOTE | 2024-08-24 02:01 | PTCARENOTE ---
Pt c/o nausea and abdominal discomfort. IV zofran given. Pt abdomen round, grossly distended, firm, tympanic. Last bm 08/23. Remains on clear liquid diet. Call [facility] and belongings within reach. Care ongoing.
[2024-08-24] MEDS: ZOSYN 50 IV ×2 (04:19→09:03)
[2024-08-24] MEDS: COMPAZINE 10 MG IV ×2 (04:19→11:57)
--- NOTE | 2024-08-24 04:41 | PTCARENOTE ---
Nausea unrelieved by zofran, one time order for IV compazine given.
[2024-08-24] MEDS: SYNTHROID 200 MCG PO (05:29)
[2024-08-24 05:33] LABS: Hematocrit 36.1 % (39.0-52.0); Hemoglobin 12.5 g/dL (13.0-18.0); Mean Corp Hgb Conc. 34.6 g/dL (33.0-37.0); Mean Corpuscular Hgb 32.6 pg (27.0-31.0); Mean Platelet Volume 10.4 fL (7.4-10.4); Platelet Count 202 10^3/uL (130-400); Red Blood Cell Count 3.84 10^6/uL (4.70-6.10); Red Cell Dist. Width 13.4 % (11.5-14.5); White Blood Cell Count 10.1 10^3/uL (4.8-10.8)
[2024-08-24 05:51] LABS: ALT (SGPT) 93 U/L (0-50); AST (SGOT) 59 U/L (17-59); Albumin 2.4 g/dl (3.5-5.0); Alkaline Phosphatase 95 U/L (38-126); Blood Urea Nitrogen 14 mg/dl (9-20); Carbon Dioxide 33 mmol/L (22-30); Chloride 92 mmol/L (98-107); Estimated Creatinine Clearance > 125 ml/min; Glucose 161 mg/dl (70-99); Potassium 3.6 mmol/L (3.5-5.1); Sodium 129 mmol/L (135-145); Total Bilirubin 1.3 mg/dl (0.2-1.3); Total Protein 4.5 g/dl (6.3-8.2); eGFR > 60.00
[2024-08-24 06:16] LABS: Absolute Neutrophils -Man Diff 8.5 10^3/uL (1.4-6.5); Band Neutrophils 15 % (0-3); Eosinophils 4 % (0-6); Lymphocytes 7 % (20-51); Monocytes 4 % (2-9); Segmented Neutrophils 70 % (42-75)
[2024-08-24 06:17] LABS: Normal RBC Morphology Yes; Platelets Checked Yes; Total Cells Counted 100; Vacuolated Segs 1+
[2024-08-24] MEDS: VASOTEC 20 MG PO ×2 (07:50→19:28)
[2024-08-24] MEDS: COLACE 100 MG PO ×2 (07:50→19:29)
[2024-08-24] MEDS: TRANDATE 50 MG PO ×3 (07:51→23:28)
[2024-08-24] MEDS: PROTONIX IV 40 MG IV (07:54)
[2024-08-24] MEDS: NSS (PRESERVATIVE FREE) 10 ML IV (07:54)
[2024-08-24 08:08] LABS: Glucose - Point of Care 170 mg/dl (70-99)
--- NOTE | 2024-08-24 08:20 | PTCARENOTE ---
Pt is AAOx3 anxious and forgetful. Can be argumentative at times. +1 anasarca pt abd large and firm. NO co of nv
--- NOTE | 2024-08-24 08:22 | W.PN.GI.CBS2 ---
Today's Communication / Plan
-
-- Advance nutrition, added Ensure clear 3 times daily
-- Stop Zofran, use Compazine as needed,
--- One-time Lasix 40 mg IV
-- Patient needs to move around, out of bed
-- Aspiration precautions
--- Hold statin and Tylenol as ALT is rising
-- Stop Zosyn -most pancreatitis including necrotizing and pseudocyst are sterile and he has no signs of infection at this time
Assessment / Plan
-
08/23/2024 CT abdomen pelvis with IV contrast no free air in the peritoneal cavity small amount of pelvic free fluid, no portal or hepatic vein filling defects, gallstones in the gallbladder with no gallbladder wall thickening or inflammatory
changes, no ductal dilatation, severe inflammatory change surrounding the entire pancreas with a small fluid collection along the posterior aspect of the stomach measuring 4.6 x 3.4 x 3.6 cm in diameter hypoenhancement of portions of the pancreatic
head and neck relative to the tail. Stomach and small bowel are not significantly dilated. No colonic dilation or significant bowel wall thickening
08/21/24 xray with nonobstructive bowel gas, hazy with no distinct stool, no signs of ileus
Impression
Necrotizing pancreatitis likely secondary to gallstones
Abdominal distention/ileus
Hepatic lesion likely benign
Gallstones
Mild DKA
GERD
History of diverticulitis
Hypertension
Hyperlipidemia
Diabetes mellitus
#necrotizing versus severe interstitial (severe pancreatitis) with a 4.6 x 3.6 x 3.4 new fluid collection likely pseudocyst or early abscess.
--Nausea is his most predominant symptom without vomiting. Pain is roughly the same
- stable with normal wbc, lipase but not progressing, afebrile
--Blood and urine cultures have been negative from 08/17/2024 -patient is on Zosyn
--If patient is assumed to have an infected necrosis he needs targeted antimicrobial therapy. However he is very stable, has no leukocytosis, no signs of infection and therefore may not need antibiotics. But if you are going to start antibiotics
it should be appropriate carbapenem therapy -I am going to stop his antibiotics -if he starts to appear infected we will restart a carbapenem. Most pancreatitis including necrotizing is sterile
--Main issue is nutrition at this point -will start Ensure clear 3 times daily. If tolerates this well we will move on to full liquids/low-fat
--Give a 40 mg IV Lasix now, renal function is normal
--Stop Zofran as it does decrease GI motility as well and will give him Compazine as needed
-- I discussed the patient needs to move. He is just lying in bed which is not helping his GI motility. He does not have an ileus based on bowel sounds and imaging
-- discussed this with Ramesh, his RN
-- Patient needs enteral nutrition to help prevent infectious complications -consider nasogastric tube for enteral feeding = however patient is refusing. And he seems to be tolerating liquids. Will not use parenteral nutrition unless absolutely
necessary.
--Multiple studies have shown that enteral nutrition should be started in patients with severe AP especially pancreatic necrosis which decreases infectious complications, organ failure and mortality. Studies also showed nasogastric enteral
nutrition is safe and a nasojejunal route is not necessary. There is a slight risk of aspiration so make sure patient is upright with aspiration precautions
--Evaluating for residuals is not likely to be helpful
-OOB and incentive spirometry
- no major stool but can continue suppositories prn
-After resolution of symptoms eventual cholecystectomy but not anytime soon
# Slightly worsening ALT -hold Tylenol and Lipitor for now
Subjective
Subjective
Date of Service: August 24, 2024
Patient complaining of nausea but no vomiting. Complains of being weak. Has not been given anything other than clear liquids and seems to be tolerating them. States no flatus or stool today but he does have bowel sounds.
Zofran did not help much, Compazine did. Complaints of having significant fluid and increased weight since admission. Wants diuretics. Is not moving much. No fever
Objective
Data Reviewed
Laboratory Data:
Laboratory Results
08/24/24 04:35
08/24/24 04:35
Laboratory Results
APTT 79.4 Sec (23.4-35.0) H 08/20/24 05:27
Total Bilirubin 1.3 mg/dl (0.2-1.3) 08/24/24 04:35
AST 59 U/L (17-59) 08/24/24 04:35
ALT 93 U/L (0-50) H 08/24/24 04:35
Alkaline Phosphatase 95 U/L (38-126) 08/24/24 04:35
Lipase 147 U/L (23-300) 08/22/24 04:45
Vital Signs and I&O:
Vital Signs
Temp Pulse Resp BP Pulse Ox
99.0 F 75 21 138/75 90
08/24/24 07:32 08/24/24 07:51 08/24/24 04:00 08/24/24 07:51 08/24/24 04:00
I&O
08/23/24 08/24/24 08/25/24
06:59 06:59 06:59
Intake Total 3300 / 3300
Output Total 1150 / 1150 1825 / 1825 250 / 250
Balance 2150 / 2150 -1825 / -1825 -250 / -250
[2024-08-24] MEDS: NOVOLOG FLEXPEN-MODERATE RESISTANCE 1 UNITS SC ×2 (08:28→17:40)
[2024-08-24] MEDS: LASIX 40 MG IV (11:12)
[2024-08-24] MEDS: KCL 270 MEQ IV (11:48)
[2024-08-24] MEDS: NOVOLOG FLEXPEN-MODERATE RESISTANCE 3 UNITS SC (12:45)
[2024-08-24 12:49] LABS: Glucose - Point of Care 226 mg/dl (70-99)
--- NOTE | 2024-08-24 13:00 | W.PN.HOSP.TC ---
Today's Communication/Plan
-
Monitor vital signs see plan
Dose of IV Lasix
DC further antibiotics
Transfer out of IMU
cw clears for now
wean o2 as tolerated
Assessment / Plan
Assessment / Plan
68yo M with PMHx of HTN, HLD, DM sent from PCP with abdominal pain and bloating, found necrotizing pancreatitis.
General: No Apparent Distress
Respiratory: Clear to Auscultation
Cardiac: Regular Rhythm
GI: Soft, Nontender and Nondistended
Skin: Warm
Neuro: Awake, Alert, Oriented and AO x 3
A/P:
#Acute gallstone necrotizing pancreatitis
#Elevated bili 2/2 above
Follow LFT
Currently on clears
GI following
Repeat CT abdomen noted, new fluid collection likely pseudocyst or early abscess. Will monitor. No increase in pain
Evaluated by surgery, no plans for surgical intervention at this time
Triglycerides WNL
CA WNL
IGG4 27 (WNL)
Agree with discontinuing further antibiotics for now
Bcx NTD
#Acute hypoxic respiratory insufficiency
most likely 2/2 IVF, JABIER with obesity, atelectasis; also likely some iatrogenic fluid overload
Incentive spirometry
decrease rate
dose of IV lasix today
#VIPUL
resolved
follow Cr
#Ileus 2/2 pancreatitis with constipation
Laxatives
monitor
Encourage ambulation
#Filling defect seen in splenic vein on MRI
US doppler did not confirm thrombus, heparin stopped as per discussion with biztalk consultant
#Hepatic atypical hemangioma
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
2.6 x 2.0 cm exophytic, nonenhancing lesion along the posterior medial right hepatic lobe which is likely benign
repeat MRI in [address] angio of splenic artery in 6mo
#DM type 2 with neuropathy
Accuchecks, Insulin SS, DM diet when able to eat
lantus
#Pyuria
Ucx without significant growth
Essential Hypertension
-Continue enalapril
-Hold HCTZ
cw labtealol
#HLD
#Hypothyroidism
#GERD
cont home meds
TSH WNL
#Morbid obesity
BMI 45.0
Advice to decrease calorie intake
#DJD
tylenol
PT/OT
DVT ppx hep
Full code
I spent a total of 51 minutes with the patient or on the floor. More than 50% of this time involved counseling and coordination of care.
Anticipated Discharge: 24 - 48 hours
Subjective/Interval History
-
Date of Service: August 24, 2024
denies pain
Objective Data
-
Labs:
Laboratory Results
08/24/24
04:35
WBC 10.1
Hgb 12.5 L
Hct 36.1 L
Plt Count 202
Sodium 129 L
Potassium 3.6
Chloride 92 L
Carbon Dioxide 33 H
BUN 14
Creatinine 0.8
Glucose 161 H
Calcium 8.0 L
Total Bilirubin 1.3
AST 59
ALT 93 H
Alkaline Phosphatase 95
Vital Signs:
Vital Signs
Temp Pulse Resp BP Pulse Ox
97.7 F 84 27 148/90 92
08/24/24 11:49 08/24/24 12:00 08/24/24 12:00 08/24/24 11:12 08/24/24 12:00
I&O
08/23/24 08/24/24 08/25/24
06:59 06:59 06:59
Intake Total 3300 / 3300
Output Total 1150 / 1150 1825 / 1825 1625 / 1625
Balance 2150 / 2150 -1825 / -1825 -1625 / -1625
--- NOTE | 2024-08-24 13:01 | PTCARENOTE ---
Pt will not keeo r arm staight takes off the no no because it hurts and Iv keeps beeping due to bent arm.
[2024-08-24] MEDS: APRESOLINE 5 MG IV (14:28)
--- NOTE | 2024-08-24 14:35 | PTCARENOTE ---
Pt for tx, pt upset that he is being moved, explained to pt that he does not lorenzo this level of care, he states hes not any better. He is afraid his wallet and cell phone will get lost i assured him we move people and their piossesions every day
--- NOTE | 2024-08-24 15:16 | PTCARENOTE ---
Report to [facility] on [address], Belongings packed Pt phone and wallet handed to pt as he was afraid they would get lost, pt put them in his pants pockets in a pt belonging bag
--- NOTE | 2024-08-24 15:47 | PTCARENOTE ---
Pt sent to [facility] with 3 bags of belongings , Pt very argumentative and controlling when moving him to [facility]. Pt reused to leave until he checked 3 belonging bags which he did . Ot had a chafger for Ipad but only had a ditcher with a USB port
[2024-08-24 16:49] LABS: Glucose - Point of Care 174 mg/dl (70-99)
[2024-08-24 21:41] LABS: Glucose - Point of Care 206 mg/dl (70-99)
[2024-08-24] MEDS: LANTUS 0.14 UNITS SC (22:32)
[2024-08-25 03:55] VITALS: BP 148/90
[2024-08-25] MEDS: COMPAZINE 10 MG IV ×2 (04:46→21:37)
[2024-08-25] MEDS: SYNTHROID 200 MCG PO (04:47)
[2024-08-25 06:00] VITALS: BMI 44.1
[2024-08-25 07:36] LABS: % Basophils 0.2 % (0-2); % Eosinophils 1.5 % (0-6); % Immature Granulocytes 2.8 % (0-0.5); % Lymphocytes 9.3 % (20.5-51.1); % Monocytes 5.5 % (1.7-9.3); % Neutrophils 80.7 % (42.2-75.2); Absolute Eosinophils 0.2 10^3/uL (0-0.7); Absolute Immature Granulocytes 0.3 10^3/uL (0-0.05); Absolute Lymphocytes 1.1 10^3/uL (1.2-3.4); Absolute Monocytes 0.7 10^3/uL (0.1-0.6); Absolute Neutrophils 9.5 10^3/uL (1.4-6.5); Hematocrit 35.6 % (39.0-52.0); Hemoglobin 12.4 g/dL (13.0-18.0); Mean Corp Hgb Conc. 34.8 g/dL (33.0-37.0); Mean Corpuscular Hgb 32.2 pg (27.0-31.0); Mean Corpuscular Volume 92.5 fL (80.0-94.0); Mean Platelet Volume 9.7 fL (7.4-10.4); Nucleated Red Blood Cells % 0 % (-); Platelet Count 218 10^3/uL (130-400); Red Blood Cell Count 3.85 10^6/uL (4.70-6.10); Red Cell Dist. Width 13.3 % (11.5-14.5); White Blood Cell Count 11.8 10^3/uL (4.8-10.8)
[2024-08-25 07:57] VITALS: BP 164/82
[2024-08-25 08:10] LABS: Glucose - Point of Care 191 mg/dl (70-99)
[2024-08-25 08:16] LABS: ALT (SGPT) 91 U/L (0-50); AST (SGOT) 53 U/L (17-59); Albumin 2.4 g/dl (3.5-5.0); Alkaline Phosphatase 100 U/L (38-126); Blood Urea Nitrogen 13 mg/dl (9-20); Carbon Dioxide 33 mmol/L (22-30); Chloride 93 mmol/L (98-107); Estimated Creatinine Clearance 109 ml/min; Glucose 177 mg/dl (70-99); Potassium 3.5 mmol/L (3.5-5.1); Sodium 129 mmol/L (135-145); Total Bilirubin 1.3 mg/dl (0.2-1.3); Total Protein 4.6 g/dl (6.3-8.2); eGFR > 60.00
[2024-08-25] MEDS: NOVOLOG FLEXPEN-MODERATE RESISTANCE 1 UNITS SC ×3 (09:32→17:15)
[2024-08-25] MEDS: COLACE 100 MG PO ×2 (09:33→19:54)
[2024-08-25] MEDS: HEPARIN 5000 UNITS SC ×3 (09:33→22:57)
[2024-08-25] MEDS: NSS (PRESERVATIVE FREE) 10 ML IV (09:34)
[2024-08-25] MEDS: TRANDATE 50 MG PO ×3 (09:35→21:18)
[2024-08-25] MEDS: FLUSH (NSS) 1 FLUSH IV ×2 (09:35→12:39)
[2024-08-25] MEDS: PROTONIX IV 40 MG IV (09:35)
[2024-08-25] MEDS: VASOTEC 20 MG PO ×2 (09:36→19:54)
[2024-08-25 11:40] VITALS: BP 156/83
--- NOTE | 2024-08-25 12:11 | W.PN.GI.CBS2 ---
Today's Communication / Plan
-
-- Work on getting out of bed and moving, abdominal x-ray, full liquid diet with ensures
Assessment / Plan
-
08/23/2024 CT abdomen pelvis with IV contrast no free air in the peritoneal cavity small amount of pelvic free fluid, no portal or hepatic vein filling defects, gallstones in the gallbladder with no gallbladder wall thickening or inflammatory
changes, no ductal dilatation, severe inflammatory change surrounding the entire pancreas with a small fluid collection along the posterior aspect of the stomach measuring 4.6 x 3.4 x 3.6 cm in diameter hypoenhancement of portions of the pancreatic
head and neck relative to the tail. Stomach and small bowel are not significantly dilated. No colonic dilation or significant bowel wall thickening
08/21/24 xray with nonobstructive bowel gas, hazy with no distinct stool, no signs of ileus
Impression
Necrotizing pancreatitis likely secondary to gallstones
Abdominal distention/ileus
Hepatic lesion likely benign
Gallstones
Mild DKA
GERD
History of diverticulitis
Hypertension
Hyperlipidemia
Diabetes mellitus
#necrotizing versus severe interstitial (severe pancreatitis) with a 4.6 x 3.6 x 3.4 new fluid collection likely pseudocyst or early abscess.
--Nausea is his most predominant symptom without vomiting. Pain is roughly the same
- stable with normal wbc, lipase but not progressing, afebrile
--Blood and urine cultures have been negative from 08/17/2024 -patient is now off antibiotics as of 08/24/2024
--If patient is assumed to have an infected necrosis he needs targeted antimicrobial therapy. However he is very stable, has no leukocytosis, no signs of infection and therefore may not need antibiotics. But if you are going to start antibiotics
it should be appropriate carbapenem therapy - -if he starts to appear infected we will restart a carbapenem. Most pancreatitis including necrotizing is sterile
--Main issue is nutrition at this point -patient is on full liquid diet but he did not understand and only ordered broth. Ensure clear 3 times daily
-- Renal function is still normal and did receive a dose of Lasix yesterday
--Still complaining of nausea
--Patient did have a good bowel movement today and we started senna
--Stop Zofran as it does decrease GI motility as well and will give him Compazine as needed
-- I discussed the patient needs to move. He is just lying in bed which is not helping his GI motility. No previous ileus on imaging but we will carmela-ray him today with hypoactive bowel sounds and seems slightly more distended despite moving his
bowels
-OOB and incentive spirometry
-Continue laxatives
-After resolution of symptoms eventual cholecystectomy but not anytime soon
# Slightly worsening ALT -hold Tylenol and Lipitor for now
Subjective
Subjective
Date of Service: August 25, 2024
Patient still complains of nausea. He did have a good bowel movement this morning that was brown and loose. Has still some pain with palpation. He did lose weight from yesterday and feels less edematous after the Lasix.
Despite being advancing his diet to full liquids he was not aware that he could order anything and states he is only had broth which she seems to be tolerating.
Objective
Data Reviewed
Laboratory Data:
Laboratory Results
08/25/24 07:24
08/25/24 07:24
Laboratory Results
APTT 79.4 Sec (23.4-35.0) H 08/20/24 05:27
Total Bilirubin 1.3 mg/dl (0.2-1.3) 08/25/24 07:24
AST 53 U/L (17-59) 08/25/24 07:24
ALT 91 U/L (0-50) H 08/25/24 07:24
Alkaline Phosphatase 100 U/L (38-126) 08/25/24 07:24
Lipase 147 U/L (23-300) 08/22/24 04:45
Vital Signs and I&O:
Vital Signs
Temp Pulse Resp BP Pulse Ox
98.4 F 77 20 156/83 97
08/25/24 11:40 08/25/24 11:40 08/25/24 11:40 08/25/24 11:40 08/25/24 11:40
I&O
08/24/24 08/25/24 08/26/24
06:59 06:59 06:59
Intake Total 1140 / 1140
Output Total 1825 / 1825 4325 / 4325 650 / 650
Balance -1825 / -1825 -3185 / -3185 -650 / -650
Physical Exam
Physical Exam
HEENT: Anicteric
GI: Distended and Normal Bowel Sounds (Hypoactive bowel sounds)
Extremities: Edema (Less edematous from yesterday)
Neuro: Non Focal
[2024-08-25 12:12] LABS: Glucose - Point of Care 186 mg/dl (70-99)
--- NOTE | 2024-08-25 12:16 | W.PN.HOSP.TC ---
Today's Communication/Plan
-
Monitor vital signs see plan
Tolerating fulls
Abdomen x-ray today
Another dose of IV Lasix today
Assessment / Plan
Assessment / Plan
68yo M with PMHx of HTN, HLD, DM sent from PCP with abdominal pain and bloating, found necrotizing pancreatitis.
General: No Apparent Distress
Respiratory: Clear to Auscultation
Cardiac: Regular Rhythm
GI: Soft, Nontender and Nondistended
Skin: Warm
Neuro: Awake, Alert, Oriented and AO x 3
A/P:
#Acute gallstone necrotizing pancreatitis
#Elevated bili 2/2 above
Follow LFT
Currently on fulls
abdomen xray 08/25
GI following
Repeat CT abdomen noted, new fluid collection likely pseudocyst or early abscess. Will monitor. No increase in pain
Evaluated by surgery, no plans for surgical intervention at this time
Triglycerides WNL
CA WNL
IGG4 27 (WNL)
Agree with discontinuing further antibiotics for now
Bcx NTD
#Acute hypoxic respiratory insufficiency
most likely 2/2 IVF, JABIER with obesity, atelectasis; also likely some iatrogenic fluid overload
Incentive spirometry
decrease rate
another dose of IV lasix today
Diuresed well after Lasix yesterday
#VIPUL
resolved
follow Cr
#Ileus 2/2 pancreatitis with constipation
Laxatives
monitor
Encourage ambulation
abdomen xray 08/25
#Filling defect seen in splenic vein on MRI
US doppler did not confirm thrombus, heparin stopped as per discussion with actuarial science teacher
#Hepatic atypical hemangioma
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
2.6 x 2.0 cm exophytic, nonenhancing lesion along the posterior medial right hepatic lobe which is likely benign
repeat MRI in [address] angio of splenic artery in 6mo
#DM type 2 with neuropathy
Accuchecks, Insulin SS, DM diet when able to eat
lantus
#Pyuria
Ucx without significant growth
Essential Hypertension
-Continue enalapril
-Hold HCTZ
cw labtealol
#HLD
#Hypothyroidism
#GERD
cont home meds
TSH WNL
#Morbid obesity
BMI 45.0
Advice to decrease calorie intake
#DJD
tylenol
PT/OT
DVT ppx hep
Full code
I spent a total of 52 minutes with the patient or on the floor. More than 50% of this time involved counseling and coordination of care.
Anticipated Discharge: 24 - 48 hours
Subjective/Interval History
-
Date of Service: August 25, 2024
Still have some distention however appears to be improving
Objective Data
-
Labs:
Laboratory Results
08/25/24
07:24
WBC 11.8 H
Hgb 12.4 L
Hct 35.6 L
Plt Count 218
Sodium 129 L
Potassium 3.5
Chloride 93 L
Carbon Dioxide 33 H
BUN 13
Creatinine 0.9
Glucose 177 H
Calcium 8.0 L
Total Bilirubin 1.3
AST 53
ALT 91 H
Alkaline Phosphatase 100
Vital Signs:
Vital Signs
Temp Pulse Resp BP Pulse Ox
98.4 F 77 20 156/83 97
08/25/24 11:40 08/25/24 11:40 08/25/24 11:40 08/25/24 11:40 08/25/24 11:40
I&O
08/24/24 08/25/24 08/26/24
06:59 06:59 06:59
Intake Total 1140 / 1140
Output Total 182 / 182 4325 / 4325 650 / 650
Balance -1825 / -182 -3185 / -318 -650 / -650
[2024-08-25] MEDS: LASIX 40 MG IV (12:39)
[2024-08-25 15:36] VITALS: BP 148/83
--- NOTE | 2024-08-25 15:58 | PTCARENOTE ---
Pt AAO x3, SWARTZ; OOB to BSC with assistance/walker, talita well, refuses offers of OOB to chair activity. MAXIME. VSS. Telemetry:NSR. On nc 2 lpm- pulse ox 92% ; pt has (+) slight JENNINGS; denies SOB. Abd obese, firm ; talita PO; need much encouragement to
order diet; repeatedly states 'I'll eat later'. Voids clear yellow urine on BSC /urinal; spills at times. Resting in bed at present. Will continue to monitor.
[2024-08-25 16:39] LABS: Glucose - Point of Care 166 mg/dl (70-99)
--- NOTE | 2024-08-25 16:50 | CM ---
PT OT = SNF .
Spoke with patient and PAc Data given . CM please follow with SNF choices.
On Oxygen 2 to 4 liters POx 92%.
Adv Full liquids.
Maintained IV Lasix.
PLAN To Snf after located
[2024-08-25 19:57] VITALS: BP 150/85
[2024-08-25 21:09] LABS: Glucose - Point of Care 166 mg/dl (70-99)
[2024-08-25] MEDS: LANTUS 0.14 UNITS SC (21:18)
[2024-08-25 23:06] VITALS: BP 145/80
[2024-08-26] VITALS (7 sets, daily range): BP systolic 139–163; BP diastolic 76–99; PULSE 77–80; O2SAT 95–96; BMI 43.7
[2024-08-26] MEDS: SYNTHROID 200 MCG PO (05:10)
[2024-08-26 06:43] LABS: % Basophils 0.2 % (0-2); % Eosinophils 1.4 % (0-6); % Lymphocytes 9.9 % (20.5-51.1); % Monocytes 5.2 % (1.7-9.3); % Neutrophils 81.3 % (42.2-75.2); Absolute Eosinophils 0.2 10^3/uL (0-0.7); Absolute Immature Granulocytes 0.3 10^3/uL (0-0.05); Absolute Lymphocytes 1.3 10^3/uL (1.2-3.4); Absolute Monocytes 0.7 10^3/uL (0.1-0.6); Absolute Neutrophils 10.4 10^3/uL (1.4-6.5); Hematocrit 35.6 % (39.0-52.0); Hemoglobin 12.4 g/dL (13.0-18.0); Mean Corp Hgb Conc. 34.8 g/dL (33.0-37.0); Mean Corpuscular Hgb 32.5 pg (27.0-31.0); Mean Corpuscular Volume 93.2 fL (80.0-94.0); Mean Platelet Volume 10.5 fL (7.4-10.4); Nucleated Red Blood Cells % 0 % (-); Platelet Count 237 10^3/uL (130-400); Red Blood Cell Count 3.82 10^6/uL (4.70-6.10); Red Cell Dist. Width 13.2 % (11.5-14.5); White Blood Cell Count 12.8 10^3/uL (4.8-10.8)
[2024-08-26 06:55] LABS: ALT (SGPT) 91 U/L (0-50); AST (SGOT) 54 U/L (17-59); Albumin 2.5 g/dl (3.5-5.0); Alkaline Phosphatase 109 U/L (38-126); Blood Urea Nitrogen 14 mg/dl (9-20); Calcium 7.9 mg/dl (8.4-10.2); Carbon Dioxide 32 mmol/L (22-30); Chloride 89 mmol/L (98-107); Estimated Creatinine Clearance 122 ml/min; Glucose 160 mg/dl (70-99); Potassium 3.3 mmol/L (3.5-5.1); Sodium 127 mmol/L (135-145); Total Bilirubin 1.4 mg/dl (0.2-1.3); Total Protein 4.9 g/dl (6.3-8.2); eGFR > 60.00
[2024-08-26] MEDS: COLACE PO ×2 (08:07→20:52)
[2024-08-26] MEDS: VASOTEC 20 MG PO ×2 (08:07→21:02)
[2024-08-26] MEDS: HEPARIN 5000 UNITS SC ×3 (08:07→23:28)
[2024-08-26] MEDS: TRANDATE 50 MG PO ×3 (08:07→23:27)
[2024-08-26] MEDS: NSS (PRESERVATIVE FREE) 10 ML IV (08:08)
[2024-08-26] MEDS: PROTONIX IV 40 MG IV (08:08)
[2024-08-26 08:32] LABS: Glucose - Point of Care 162 mg/dl (70-99)
[2024-08-26] MEDS: KCL 40 MEQ PO (09:01)
[2024-08-26] MEDS: NOVOLOG FLEXPEN-MODERATE RESISTANCE 1 UNITS SC ×2 (09:02→12:14)
--- NOTE | 2024-08-26 11:34 | W.PN.GI.CBS2 ---
Addendum entered and electronically signed by Jigna Corral DO 08/26/24 15:52:
Patient seen and examined independently of [employer] NE[employer]AL[employer]ER. I agree with her note with additions below
Patient appears to have had some progress. He is able to get to the bathroom on his own. He is having bowel movements. He is tolerating a full liquid diet and is ready to progress to more solid foods. Still complaining of significant nausea
especially postprandial.
Monitor leukocytosis and any signs of infection. Patient is afebrile. No significant changes in clinical presentation
Patient has been off antibiotics for the last 2 days
Out of bed getting physical therapy today
Held the senna since he is complaining about diarrhea
Patient is complaining about heartburn he is on pantoprazole
Lipitor is on hold With his LFTs but can restart later on as long as they are improving
Overall, patient appears to be improving. Dr Moreira taking over tomorrow
Original Note:
Today's Communication / Plan
-
increase to ADA diet with glucemia
reviewed with nursing and patient need PT/OOB and mobility
c/o diarrhea will hold senna and cont colace for now
trend WBC with some rise last 2 days now off abx
consider further diuresis per medical team with watch on Na
incentive spirometry
reviewed with nursing staff
Assessment / Plan
-
Pt is a 69yo [id number] male who presented to the emergency department secondary to the acute onset of abdominal pain, bloating. Noted with concern for Necrotizing pancreatitis likely secondary to gallstones with concern for Abdominal
distention/ileus which in now resolving and remains with decondition and slow diet advancement.
08/23/2024 CT abdomen pelvis with IV contrast no free air in the peritoneal cavity small amount of pelvic free fluid, no portal or hepatic vein filling defects, gallstones in the gallbladder with no gallbladder wall thickening or inflammatory
changes, no ductal dilatation, severe inflammatory change surrounding the entire pancreas with a small fluid collection along the posterior aspect of the stomach measuring 4.6 x 3.4 x 3.6 cm in diameter hypoenhancement of portions of the pancreatic
head and neck relative to the tail. Stomach and small bowel are not significantly dilated. No colonic dilation or significant bowel wall thickening
08/21/24 xray with nonobstructive bowel gas, hazy with no distinct stool, no signs of ileus
Impression
Necrotizing pancreatitis likely secondary to gallstones
Abdominal distention/ileus
Hepatic lesion likely benign
Gallstones
Mild DKA
GERD
History of diverticulitis
Hypertension
Hyperlipidemia
Diabetes mellitus
#necrotizing versus severe interstitial (severe pancreatitis) with a 4.6 x 3.6 x 3.4 new fluid collection likely pseudocyst or early abscess.
#s/p ileus
# leukocytosis
#elevated ALT
#diarrhea
# deconditioning
# hyponatremia
increase to ADA diet with glucemia
reviewed with nursing and patient need PT/OOB and mobility
c/o diarrhea will hold senna and cont colace for now
trend WBC with some rise last 2 days now off abx
consider further diuresis per medical team with watch on Na
incentive spirometry
-After resolution of symptoms eventual cholecystectomy but not anytime soon
-cont hold Tylenol and Lipitor with rise in ALT
Subjective
Subjective
Date of Service: August 26, 2024
08/26 brown loose stools, on full liquids with ensure
Objective
Data Reviewed
Laboratory Data:
Laboratory Results
08/26/24 05:16
08/26/24 05:16
Laboratory Results
APTT 79.4 Sec (23.4-35.0) H 08/20/24 05:27
Total Bilirubin 1.4 mg/dl (0.2-1.3) H 08/26/24 05:16
AST 54 U/L (17-59) 08/26/24 05:16
ALT 91 U/L (0-50) H 08/26/24 05:16
Alkaline Phosphatase 109 U/L (38-126) 08/26/24 05:16
Lipase 147 U/L (23-300) 08/22/24 04:45
Vital Signs and I&O:
Vital Signs
Temp Pulse Resp BP Pulse Ox
98.3 F 68 20 149/80 94
08/26/24 11:13 08/26/24 11:13 08/26/24 11:13 08/26/24 11:13 08/26/24 11:13
I&O
08/25/24 08/26/24 08/27/24
06:59 06:59 06:59
Intake Total 1140 / 1140 780 / 780
Output Total 4325 / 4325 2450 / 2450 150 / 150
Balance -3185 / -3185 -1670 / -1670 -150 / -150
Physical Exam
Physical Exam
HEENT: Anicteric and Moist mucous membranes
Cardiology: Normal Sinus Rhythm
Pulmonary: Clear
GI: Soft, Distended and Tender (mild diffuse )
Extremities: Edema
Neuro: Non Focal
--- NOTE | 2024-08-26 11:35 | W.PN.HOSP.TC ---
Today's Communication/Plan
-
Monitor vital signs see plan
Replete potassium
PT today
Encourage ambulation
Wean oxygen as tolerated
Monitor leukocytosis
fulls for no; advance slowly
Assessment / Plan
Assessment / Plan
68yo M with PMHx of HTN, HLD, DM sent from PCP with abdominal pain and bloating, found necrotizing pancreatitis.
General: No Apparent Distress
Respiratory: Clear to Auscultation
Cardiac: Regular Rhythm
GI: Soft, Nontender and Nondistended
Skin: Warm
Neuro: Awake, Alert, Oriented and AO x 3
A/P:
#Acute gallstone necrotizing pancreatitis
#Elevated bili 2/2 above
Follow LFT
Currently on fulls; advance slowly
abdomen xray 08/25
GI following
Repeat CT abdomen noted, new fluid collection likely pseudocyst or early abscess. Will monitor. No increase in pain
Evaluated by surgery, no plans for surgical intervention at this time
Triglycerides WNL
CA WNL
IGG4 27 (WNL)
Agree with discontinuing further antibiotics for now; monitor leukocytosis
Bcx NTD
#Acute hypoxic respiratory insufficiency
most likely 2/2 IVF, JABIER with obesity, atelectasis; also likely some iatrogenic fluid overload
Incentive spirometry
decrease rate
another dose of IV lasix today
Diuresed well after Lasix yesterday
Hyponatremia
Monitor
Hypokalemia
Replete
#VIPUL
resolved
follow Cr
#Ileus 2/2 pancreatitis with constipation
Laxatives
monitor
Encourage ambulation
abdomen xray 08/25 without any bowel obstruction. Bilateral lower lobe airspace consolidation which could be atelectasis. Will monitor
#Filling defect seen in splenic vein on MRI
US doppler did not confirm thrombus, heparin stopped as per discussion with aircraft instrument repairer
#Hepatic atypical hemangioma
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
2.6 x 2.0 cm exophytic, nonenhancing lesion along the posterior medial right hepatic lobe which is likely benign
repeat MRI in [address] angio of splenic artery in 6mo
#DM type 2 with neuropathy
Accuchecks, Insulin SS, DM diet when able to eat
lantus
#Pyuria
Ucx without significant growth
Essential Hypertension
-Continue enalapril
-Hold HCTZ
cw labtealol
#HLD
#Hypothyroidism
#GERD
cont home meds
TSH WNL
#Morbid obesity
BMI 45.0
Advice to decrease calorie intake
#DJD
tylenol
PT/OT
DVT ppx hep
Full code
I spent a total of 51 minutes with the patient or on the floor. More than 50% of this time involved counseling and coordination of care.
Anticipated Discharge: 24 - 48 hours
Subjective/Interval History
-
Date of Service: August 26, 2024
denies nausea
Objective Data
-
Labs:
Laboratory Results
08/26/24
05:16
WBC 12.8 H
Hgb 12.4 L
Hct 35.6 L
Plt Count 237
Sodium 127 L
Potassium 3.3 L
Chloride 89 L
Carbon Dioxide 32 H
BUN 14
Creatinine 0.8
Glucose 160 H
Calcium 7.9 L
Total Bilirubin 1.4 H
AST 54
ALT 91 H
Alkaline Phosphatase 109
Vital Signs:
Vital Signs
Temp Pulse Resp BP Pulse Ox
98.3 F 68 20 149/80 94
08/26/24 11:13 08/26/24 11:13 08/26/24 11:13 08/26/24 11:13 08/26/24 11:13
I&O
08/25/24 08/26/24 08/27/24
06:59 06:59 06:59
Intake Total 1140 / 1140 780 / 780
Output Total 4325 / 4325 2450 / 2450 150 / 150
Balance -3185 / -3185 -1670 / -1670 -150 / -150
[2024-08-26 11:59] LABS: Glucose - Point of Care 184 mg/dl (70-99)
--- NOTE | 2024-08-26 14:58 | PTCARENOTE ---
Pt out of bed and in a chair bedside. Pt is advised to eat his meals in the chair and to be OOB as tolerated.
--- NOTE | 2024-08-26 15:16 | CM ---
Addendum entered by Penelope Chauhan 08/26/24 16:10:
Patient reported that he drove self to the hospital; explained that Attending would give instructions regarding driving restrictions if any
Patient is undecided if he wants home health (VN/PT); explained that per Medicare, he would need to be homebound
Patient requested a Rolling Walker when discharged from the hospital
CM will continue to follow and support as needed
Original Note:
CM met with patient at bedside to discuss discharge plan. When CM asked patient if he was agreeable to going to a SNF when discharged; patient reported he was not going to a SNF
Patient was last seen by PT on 08/23. CM contacted PT department via phone and asked if a therapist can re-assess for disposition needs when stable for discharge
[2024-08-26 16:42] LABS: Glucose - Point of Care 144 mg/dl (70-99)
[2024-08-26] MEDS: NOVOLOG FLEXPEN-MODERATE RESISTANCE SC (16:48)
[2024-08-26 21:24] LABS: Glucose - Point of Care 160 mg/dl (70-99)
[2024-08-26] MEDS: COMPAZINE 10 MG IV (22:32)
[2024-08-26] MEDS: MYLICON 80 MG PO (22:39)
--- NOTE | 2024-08-26 23:12 | VATNOTE ---
called for painful right ac iv line; noted moderate phlebitis: red & warm to touch; pt also stated 'it really hurts'; ice applied. Removed IV and instructed PCN, Marguerite & pt to have MD in am assess. VAT to follow.
[2024-08-26] MEDS: LANTUS 0.14 UNITS SC (23:26)
[2024-08-27 03:25] VITALS: BP 146/82
[2024-08-27] MEDS: SYNTHROID 200 MCG PO (05:45)
[2024-08-27 06:00] VITALS: BMI 42.7
[2024-08-27] MEDS: GAVISCON LIQUID 15 ML PO (06:15)
[2024-08-27 06:43] LABS: % Basophils 0.1 % (0-2); % Eosinophils 1.2 % (0-6); % Immature Granulocytes 1.4 % (0-0.5); % Lymphocytes 11.4 % (20.5-51.1); % Monocytes 5.9 % (1.7-9.3); Absolute Eosinophils 0.1 10^3/uL (0-0.7); Absolute Immature Granulocytes 0.2 10^3/uL (0-0.05); Absolute Lymphocytes 1.3 10^3/uL (1.2-3.4); Absolute Monocytes 0.7 10^3/uL (0.1-0.6); Absolute Neutrophils 9.4 10^3/uL (1.4-6.5); Hematocrit 34.1 % (39.0-52.0); Mean Corp Hgb Conc. 35.2 g/dL (33.0-37.0); Mean Corpuscular Hgb 32.6 pg (27.0-31.0); Mean Corpuscular Volume 92.7 fL (80.0-94.0); Mean Platelet Volume 10.1 fL (7.4-10.4); Nucleated Red Blood Cells % 0 % (-); Platelet Count 223 10^3/uL (130-400); Red Blood Cell Count 3.68 10^6/uL (4.70-6.10); White Blood Cell Count 11.8 10^3/uL (4.8-10.8)
[2024-08-27 07:14] LABS: ALT (SGPT) 80 U/L (0-50); AST (SGOT) 52 U/L (17-59); Albumin 2.6 g/dl (3.5-5.0); Alkaline Phosphatase 103 U/L (38-126); Blood Urea Nitrogen 12 mg/dl (9-20); Calcium 8.1 mg/dl (8.4-10.2); Carbon Dioxide 29 mmol/L (22-30); Chloride 91 mmol/L (98-107); Estimated Creatinine Clearance 121 ml/min; Glucose 153 mg/dl (70-99); Potassium 3.6 mmol/L (3.5-5.1); Sodium 130 mmol/L (135-145); Total Bilirubin 1.3 mg/dl (0.2-1.3); eGFR > 60.00
[2024-08-27 07:25] VITALS: BP 156/84
[2024-08-27 07:34] LABS: Glucose - Point of Care 162 mg/dl (70-99)
[2024-08-27] MEDS: NOVOLOG FLEXPEN-MODERATE RESISTANCE 1 UNITS SC ×3 (08:02→17:28)
[2024-08-27] MEDS: HEPARIN 5000 UNITS SC ×3 (08:03→23:37)
[2024-08-27] MEDS: PROTONIX 40 MG PO (08:04)
[2024-08-27] MEDS: VASOTEC 20 MG PO ×2 (08:04→19:50)
[2024-08-27] MEDS: COLACE PO ×3 (08:04→19:50)
[2024-08-27] MEDS: TRANDATE 50 MG PO ×3 (08:04→21:40)
[2024-08-27] MEDS: FLUSH (NSS) 1 FLUSH IV (08:05)
--- NOTE | 2024-08-27 10:12 | W.PN.GI.CBS2 ---
Addendum entered and electronically signed by Benson Moreira MD 08/27/24 11:41:
I saw and examined the patient.
The PA's note was reviewed and I agree with the note.
Comment:
Tolerating diet. His previous CT abd showed 4.6 x 3.6 cm PFC. Ok to d/c home with f/u with Dr. Rooney - I do recommend a repeat CT in 6-8 weeks for re-evaluation of PFC.
Original Note:
Today's Communication / Plan
-
Pt doing much better
cont ADA diet with glucemia-- doing well with increasing intakes
cont OOB/ambulation
diarrhea improving cont only colace
WBC improving
consider further diuresis per medical team with watch on Na-- up to 130 today
incentive spirometry
-After resolution of symptoms eventual cholecystectomy
ok to resume statin on discharge if LFT's stable
-OP follow up with Dr. Rooney or NASREEN 3-4 week added to discharge - pt will call to schedule
reviewed with patient to return for fever, abdominal pain, nausea, vomiting or wt loss
cont PPI daily on discharge as was taking prior to admission
will need 6 month follow up MRI for liver lesion- GI follow up to review
pt with multiple question about discharge and home -- hospitalist and case management to review
Assessment / Plan
-
Pt is a 69yo [id number] male who presented to the emergency department secondary to the acute onset of abdominal pain, bloating. Noted with concern for Necrotizing pancreatitis likely secondary to gallstones with concern for Abdominal
distention/ileus which in now resolving and remains with decondition and slow diet advancement.
08/23/2024 CT abdomen pelvis with IV contrast no free air in the peritoneal cavity small amount of pelvic free fluid, no portal or hepatic vein filling defects, gallstones in the gallbladder with no gallbladder wall thickening or inflammatory
changes, no ductal dilatation, severe inflammatory change surrounding the entire pancreas with a small fluid collection along the posterior aspect of the stomach measuring 4.6 x 3.4 x 3.6 cm in diameter hypoenhancement of portions of the pancreatic
head and neck relative to the tail. Stomach and small bowel are not significantly dilated. No colonic dilation or significant bowel wall thickening
08/21/24 xray with nonobstructive bowel gas, hazy with no distinct stool, no signs of ileus
Impression
#necrotizing versus severe interstitial (severe pancreatitis) with a 4.6 x 3.6 x 3.4 new fluid collection likely pseudocyst or early abscess.
#s/p ileus
# hepatic lesion likely benign
# leukocytosis
#elevated ALT
#diarrhea
# deconditioning
# hyponatremia
# hx GERD
Pt doing much better
cont ADA diet with glucemia-- doing well with increasing intakes
cont OOB/ambulation
diarrhea improving cont only colace
WBC improving
consider further diuresis per medical team with watch on Na-- up to 130 today
incentive spirometry
-After resolution of symptoms eventual cholecystectomy
ok to resume statin on discharge if LFT's stable
-OP follow up with Dr. Rooney or NASREEN 3-4 week added to discharge - pt will call to schedule
reviewed with patient to return for fever, abdominal pain, nausea, vomiting or wt loss
cont PPI daily on discharge as was taking prior to admission
will need 6 month follow up MRI for liver lesion- GI follow up to review
Subjective
Subjective
Date of Service: August 27, 2024
Pt feeling much better eating well, less diarrhea abdominal pain improving
Objective
Data Reviewed
Laboratory Data:
Laboratory Results
08/27/24 05:25
08/27/24 05:25
Laboratory Results
APTT 79.4 Sec (23.4-35.0) H 08/20/24 05:27
Total Bilirubin 1.3 mg/dl (0.2-1.3) 08/27/24 05:25
AST 52 U/L (17-59) 08/27/24 05:25
ALT 80 U/L (0-50) H 08/27/24 05:25
Alkaline Phosphatase 103 U/L (38-126) 08/27/24 05:25
Lipase 147 U/L (23-300) 08/22/24 04:45
Vital Signs and I&O:
Vital Signs
Temp Pulse Resp BP Pulse Ox
97.8 F 74 18 156/84 96
08/27/24 07:25 08/27/24 08:04 08/27/24 07:25 08/27/24 08:04 08/27/24 08:01
I&O
08/26/24 08/27/24 08/28/24
06:59 06:59 06:59
Intake Total 780 / 780 720 / 720
Output Total 2450 / 2450 1450 / 1450
Balance -1670 / -1670 -730 / -730
Physical Exam
Physical Exam
HEENT: Anicteric
Cardiology: Normal Sinus Rhythm
Pulmonary: Clear
GI: Soft, Distended (minimal with large abdomen ) and Tender (minimal )
Extremities: Edema (improving )
Neuro: Non Focal
[2024-08-27 11:46] LABS: Glucose - Point of Care 181 mg/dl (70-99)
--- NOTE | 2024-08-27 13:12 | W.PN.HOSP.TC ---
Today's Communication/Plan
-
Monitor vital signs see plan
Wean oxygen as tolerated, home O2 evaluation
Continue to monitor leukocytosis
Discharge planning
Assessment / Plan
Assessment / Plan
68yo M with PMHx of HTN, HLD, DM sent from PCP with abdominal pain and bloating, found necrotizing pancreatitis.
General: No Apparent Distress
Respiratory: Clear to Auscultation
Cardiac: Regular Rhythm
GI: Soft, Nontender and Nondistended
Skin: Warm
Neuro: Awake, Alert, Oriented and AO x 3
A/P:
#Acute gallstone necrotizing pancreatitis
#Elevated bili 2/2 above
Follow LFT
Advance diet, tolerating
abdomen xray 08/25
GI following
Repeat CT abdomen noted, new fluid collection likely pseudocyst or early abscess. Will monitor. No increase in pain
Evaluated by surgery, no plans for surgical intervention at this time
Triglycerides WNL
CA WNL
IGG4 27 (WNL)
Agree with discontinuing further antibiotics for now; monitor leukocytosis
Bcx NTD
repeat CT in 6-8 weeks for re-evaluation of PFC.
#Acute hypoxic respiratory insufficiency
most likely 2/2 IVF, JABIER with obesity, atelectasis; also likely some iatrogenic fluid overload
Incentive spirometry
decrease rate
Status post IV Lasix, now improving. No further Lasix at this time
Hyponatremia
Monitor
Hypokalemia
Replete
#VIPUL
resolved
follow Cr
#Ileus 2/2 pancreatitis with constipation
Laxatives
monitor
Encourage ambulation
abdomen xray 08/25 without any bowel obstruction. Bilateral lower lobe airspace consolidation which could be atelectasis. Will monitor
#Filling defect seen in splenic vein on MRI
US doppler did not confirm thrombus, heparin stopped as per discussion with director hospice operations
#Hepatic atypical hemangioma
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
2.6 x 2.0 cm exophytic, nonenhancing lesion along the posterior medial right hepatic lobe which is likely benign
repeat MRI in [address] angio of splenic artery in 6mo
#DM type 2 with neuropathy
Accuchecks, Insulin SS, DM diet when able to eat
lantus
#Pyuria
Ucx without significant growth
Essential Hypertension
-Continue enalapril
-Hold HCTZ
cw labtealol
#HLD
#Hypothyroidism
#GERD
cont home meds
TSH WNL
#Morbid obesity
BMI 45.0
Advice to decrease calorie intake
#DJD
tylenol
PT/OT
DVT ppx hep
Full code
Anticipated Discharge: Within 24 hours
Subjective/Interval History
-
Date of Service: August 27, 2024
Denies nausea
Objective Data
-
Labs:
Laboratory Results
08/27/24
05:25
WBC 11.8 H
Hgb 12.0 L
Hct 34.1 L
Plt Count 223
Sodium 130 L
Potassium 3.6
Chloride 91 L
Carbon Dioxide 29
BUN 12
Creatinine 0.8
Glucose 153 H
Calcium 8.1 L
Total Bilirubin 1.3
AST 52
ALT 80 H
Alkaline Phosphatase 103
Vital Signs:
Vital Signs
Temp Pulse Resp BP Pulse Ox
97.8 F 74 18 156/84 94
08/27/24 07:25 08/27/24 08:04 08/27/24 07:25 08/27/24 08:04 08/27/24 10:17
I&O
03/13/25 03/14/25 03/15/25
06:59 06:59 06:59
Intake Total 780 / 780 720 / 720
Output Total 2450 / 2450 1450 / 1450
Balance -1670 / -1670 -730 / -730
--- NOTE | 2024-08-27 14:43 | VATNOTE ---
Client has 10cm palpable cord in right antecubital area. Firm, red and tender to touch. Area marked. No swelling noted of forearm or hand. Warm compress applied . Primary care RN made aware.
[2024-08-27 15:22] VITALS: BP 146/80
--- NOTE | 2024-08-27 15:32 | PTCARENOTE ---
Pt AAO x3, SWARTZ well, OOB in chair for most of shift; ambulatory in [place] with minimal assistance walker; atlita well. Pt denies weakness/dizziness with OOB activity; stated 'I have 'brain fog'; I don't think I'm ready to go home yet'. VSS. Currently
on room air- pulse ox 95%, pt with (+) slight DO' denies SOB. Abd obese, sl firm, BS (+); talita PO well. Voids clear dark yellow urine in urinal. Warm compress applied to Rt AC area (prior IV site) as ordered. Resting in chair at present, no c/o.
Will continue to monitor.
[2024-08-27 16:23] VITALS: PULSE 84; O2SAT 93
[2024-08-27 16:56] LABS: Glucose - Point of Care 164 mg/dl (70-99)
[2024-08-27 21:33] LABS: Glucose - Point of Care 188 mg/dl (70-99)
[2024-08-27] MEDS: LANTUS 0.14 UNITS SC (21:40)
[2024-08-27 23:35] VITALS: BP 135/69
[2024-08-27] MEDS: COMPAZINE 10 MG IV (23:37)
[2024-08-28] MEDS: SYNTHROID 200 MCG PO (05:23)
[2024-08-28 06:00] VITALS: BMI 42.0
[2024-08-28 06:26] LABS: % Basophils 0.2 % (0-2); % Eosinophils 1.3 % (0-6); % Immature Granulocytes 1.5 % (0-0.5); Absolute Eosinophils 0.1 10^3/uL (0-0.7); Absolute Immature Granulocytes 0.2 10^3/uL (0-0.05); Absolute Lymphocytes 1.4 10^3/uL (1.2-3.4); Absolute Monocytes 0.6 10^3/uL (0.1-0.6); Absolute Neutrophils 7.5 10^3/uL (1.4-6.5); Hematocrit 33.8 % (39.0-52.0); Hemoglobin 12.1 g/dL (13.0-18.0); Mean Corp Hgb Conc. 35.8 g/dL (33.0-37.0); Mean Corpuscular Hgb 33.1 pg (27.0-31.0); Mean Corpuscular Volume 92.3 fL (80.0-94.0); Mean Platelet Volume 10.3 fL (7.4-10.4); Nucleated Red Blood Cells % 0 % (-); Platelet Count 241 10^3/uL (130-400); Red Blood Cell Count 3.66 10^6/uL (4.70-6.10); Red Cell Dist. Width 13.1 % (11.5-14.5); White Blood Cell Count 9.8 10^3/uL (4.8-10.8)
[2024-08-28 06:52] LABS: ALT (SGPT) 78 U/L (0-50); AST (SGOT) 50 U/L (17-59); Albumin 2.9 g/dl (3.5-5.0); Alkaline Phosphatase 103 U/L (38-126); Blood Urea Nitrogen 12 mg/dl (9-20); Calcium 8.2 mg/dl (8.4-10.2); Carbon Dioxide 27 mmol/L (22-30); Chloride 95 mmol/L (98-107); Estimated Creatinine Clearance 106 ml/min; Glucose 159 mg/dl (70-99); Potassium 3.8 mmol/L (3.5-5.1); Sodium 131 mmol/L (135-145); Total Bilirubin 1.2 mg/dl (0.2-1.3); Total Protein 5.4 g/dl (6.3-8.2); eGFR > 60.00
[2024-08-28 07:05] VITALS: BP 133/78
[2024-08-28] MEDS: COLACE PO ×2 (08:34→21:20)
[2024-08-28] MEDS: NOVOLOG FLEXPEN-MODERATE RESISTANCE 1 UNITS SC ×2 (08:38→12:37)
[2024-08-28 08:39] LABS: Glucose - Point of Care 154 mg/dl (70-99)
[2024-08-28] MEDS: HEPARIN 5000 UNITS SC ×2 (08:39→16:57)
[2024-08-28] MEDS: TRANDATE 50 MG PO ×3 (08:40→21:20)
[2024-08-28] MEDS: PROTONIX 40 MG PO (08:40)
[2024-08-28] MEDS: VASOTEC 20 MG PO ×2 (08:41→20:18)
[2024-08-28] MEDS: MYLICON 80 MG PO ×3 (11:03→20:18)
[2024-08-28 11:56] LABS: Glucose - Point of Care 178 mg/dl (70-99)
[2024-08-28 12:58] VITALS: BP 134/87
--- NOTE | 2024-08-28 12:58 | PTCARENOTE ---
Pt c/o sharp L sided chest pain 11/23 when taking a deep breath. Dr. Oreilly was made aware of this during rounds. Simethicone administered and pt instructed to use IS which he states he is in too much pain to do. Pt continued to report this pain
throughout the morning and states he's had this pain before but it has never lasted this long. Dr. Oreilly made aware who gave orders for EKG and troponin. EKG showed sinus rhythm with first degree AVB. BP 134/87 HR 79. Pt instructed to notify RN if
pain changes or increases.
--- NOTE | 2024-08-28 13:02 | VATNOTE ---
Right antecubital palpable cord reassessed. Palpable cord 5cm today. Ecchymotic area greatly reduced. Less tender. K-pad now available and applied.
[2024-08-28 13:25] LABS: Troponin I < 0.012 ng/ml
--- NOTE | 2024-08-28 13:33 | W.PN.HOSP.TC ---
Today's Communication/Plan
-
Monitor vital signs see plan
PT/OT
Check CT chest
Assessment / Plan
Assessment / Plan
68yo M with PMHx of HTN, HLD, DM sent from PCP with abdominal pain and bloating, found necrotizing pancreatitis.
General: No Apparent Distress
Respiratory: Clear to Auscultation
Cardiac: Regular Rhythm
GI: Soft, Nontender and Nondistended
Skin: Warm
Neuro: Awake, Alert, Oriented and AO x 3
A/P:
#Acute gallstone necrotizing pancreatitis
#Elevated bili 2/2 above
Follow LFT
Advance diet, tolerating
abdomen xray 08/25
GI following
Repeat CT abdomen noted, new fluid collection likely pseudocyst or early abscess. Will monitor. No increase in pain
Evaluated by surgery, no plans for surgical intervention at this time
Triglycerides WNL
CA WNL
IGG4 27 (WNL)
Agree with discontinuing further antibiotics for now; monitor leukocytosis
Bcx NTD
repeat CT in 6-8 weeks for re-evaluation of PFC.
#Acute hypoxic respiratory insufficiency
most likely 2/2 IVF, JABIER with obesity, atelectasis; also likely some iatrogenic fluid overload
Incentive spirometry
decrease rate
Status post IV Lasix, now improving. No further Lasix at this time
chest pain
EKG non ischemic; trop neg
check CT pe study
Hyponatremia
Monitor
Hypokalemia
Replete
#VIPUL
resolved
follow Cr
#Ileus 2/2 pancreatitis with constipation
Laxatives
monitor
Encourage ambulation
abdomen xray 08/25 without any bowel obstruction. Bilateral lower lobe airspace consolidation which could be atelectasis. Will monitor
#Filling defect seen in splenic vein on MRI
US doppler did not confirm thrombus, heparin stopped as per discussion with intraoperative neuro tech
#Hepatic atypical hemangioma
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
2.6 x 2.0 cm exophytic, nonenhancing lesion along the posterior medial right hepatic lobe which is likely benign
repeat MRI in [address] angio of splenic artery in 6mo
#DM type 2 with neuropathy
Accuchecks, Insulin SS, DM diet when able to eat
lantus
#Pyuria
Ucx without significant growth
Essential Hypertension
-Continue enalapril
-Hold HCTZ
cw labtealol
#HLD
#Hypothyroidism
#GERD
cont home meds
TSH WNL
#Morbid obesity
BMI 45.0
Advice to decrease calorie intake
#DJD
tylenol
PT/OT
DVT ppx hep
Full code
I spent a total of 52 minutes with the patient or on the floor. More than 50% of this time involved counseling and coordination of care.
Anticipated Discharge: 24 - 48 hours
Subjective/Interval History
-
Date of Service: August 28, 2024
denies nausea
Objective Data
-
Labs:
Laboratory Results
08/28/24
05:39
WBC 9.8
Hgb 12.1 L
Hct 33.8 L
Plt Count 241
Sodium 131 L
Potassium 3.8
Chloride 95 L
Carbon Dioxide 27
BUN 12
Creatinine 0.9
Glucose 159 H
Calcium 8.2 L
Total Bilirubin 1.2
AST 50
ALT 78 H
Alkaline Phosphatase 103
Vital Signs:
Vital Signs
Temp Pulse Resp BP Pulse Ox
98.2 F 79 20 134/87 94
08/28/24 07:05 08/28/24 12:58 08/28/24 07:05 08/28/24 12:58 08/28/24 07:05
I&O
08/27/24 08/28/24 08/29/24
06:59 06:59 06:59
Intake Total 720 / 720 960 / 960
Output Total 1450 / 1450 3000 / 3000
Balance -730 / -730 -0 / -2039
[2024-08-28 15:05] VITALS: BP 152/95
[2024-08-28 16:51] LABS: Glucose - Point of Care 114 mg/dl (70-99)
[2024-08-28] MEDS: NOVOLOG FLEXPEN-MODERATE RESISTANCE SC (16:59)
--- NOTE | 2024-08-28 18:12 | PTCARENOTE ---
Order was placed for Chest CT - PE study. Pt transported to test and CT staff notified floor that IV would not work for contrast dye. Pt returned to floor and VAT RN changed dressing on line. IV flushing without difficulty but after this was done pt
reporting that chest pain was improving and he would not like to go back down for CT scan. He states he is concerned that administration of the contrast will be painful. Dr. Oreilly notified.
[2024-08-28] MEDS: LANTUS 0.14 UNITS SC (21:45)
[2024-08-28 21:46] LABS: Glucose - Point of Care 167 mg/dl (70-99)
[2024-08-28 23:46] VITALS: BP 165/96
[2024-08-29] MEDS: HEPARIN 5000 UNITS SC ×2 (00:50→07:48)
[2024-08-29] MEDS: MYLICON 80 MG PO ×2 (00:55→15:11)
[2024-08-29] MEDS: SYNTHROID 200 MCG PO (05:40)
[2024-08-29 06:00] VITALS: BMI 41.4
[2024-08-29 07:00] VITALS: BP 145/80
[2024-08-29 07:46] LABS: % Basophils 0.1 % (0-2); % Eosinophils 1.3 % (0-6); % Immature Granulocytes 1.2 % (0-0.5); % Lymphocytes 14.9 % (20.5-51.1); % Monocytes 7.7 % (1.7-9.3); % Neutrophils 74.8 % (42.2-75.2); Absolute Eosinophils 0.1 10^3/uL (0-0.7); Absolute Immature Granulocytes 0.1 10^3/uL (0-0.05); Absolute Lymphocytes 1.2 10^3/uL (1.2-3.4); Absolute Monocytes 0.6 10^3/uL (0.1-0.6); Absolute Neutrophils 6.2 10^3/uL (1.4-6.5); Hematocrit 33.7 % (39.0-52.0); Hemoglobin 11.8 g/dL (13.0-18.0); Mean Corpuscular Hgb 32.4 pg (27.0-31.0); Mean Corpuscular Volume 92.6 fL (80.0-94.0); Nucleated Red Blood Cells % 0 % (-); Platelet Count 226 10^3/uL (130-400); Red Blood Cell Count 3.64 10^6/uL (4.70-6.10); Red Cell Dist. Width 13.1 % (11.5-14.5); White Blood Cell Count 8.3 10^3/uL (4.8-10.8)
[2024-08-29] MEDS: COLACE PO (07:46)
[2024-08-29] MEDS: PROTONIX 40 MG PO (07:48)
[2024-08-29] MEDS: TRANDATE 50 MG PO (07:48)
[2024-08-29] MEDS: VASOTEC 20 MG PO (07:48)
[2024-08-29 07:50] LABS: Glucose - Point of Care 151 mg/dl (70-99)
[2024-08-29] MEDS: NOVOLOG FLEXPEN-MODERATE RESISTANCE 1 UNITS SC ×2 (07:50→14:38)
[2024-08-29 08:06] LABS: ALT (SGPT) 72 U/L (0-50); AST (SGOT) 43 U/L (17-59); Alkaline Phosphatase 99 U/L (38-126); Blood Urea Nitrogen 10 mg/dl (9-20); Calcium 8.4 mg/dl (8.4-10.2); Carbon Dioxide 26 mmol/L (22-30); Chloride 96 mmol/L (98-107); Estimated Creatinine Clearance 119 ml/min; Glucose 159 mg/dl (70-99); Potassium 3.8 mmol/L (3.5-5.1); Sodium 132 mmol/L (135-145); Total Bilirubin 1.3 mg/dl (0.2-1.3); Total Protein 5.4 g/dl (6.3-8.2); eGFR > 60.00
--- NOTE | 2024-08-29 09:57 | W.PN.HOSP.TC ---
Today's Communication/Plan
-
Monitor vital signs see plan
Patient is feeling better
Discharge home
PT/OT
Walker prescription in chart
Time of discharge 30 minutes
Assessment / Plan
Assessment / Plan
68yo M with PMHx of HTN, HLD, DM sent from PCP with abdominal pain and bloating, found necrotizing pancreatitis.
General: No Apparent Distress
Respiratory: Clear to Auscultation
Cardiac: Regular Rhythm
GI: Soft, Nontender and Nondistended
Skin: Warm
Neuro: Awake, Alert, Oriented and AO x 3
A/P:
#Acute gallstone necrotizing pancreatitis
#Elevated bili 2/2 above
Follow LFT
Advance diet, tolerating
abdomen xray 08/25
GI following
Repeat CT abdomen noted, new fluid collection likely pseudocyst or early abscess. Will monitor. No increase in pain
Evaluated by surgery, no plans for surgical intervention at this time
Triglycerides WNL
CA WNL
IGG4 27 (WNL)
Agree with discontinuing further antibiotics for now; monitor leukocytosis
Bcx NTD
repeat CT in 6-8 weeks for re-evaluation of PFC.
#Acute hypoxic respiratory insufficiency
most likely 2/2 IVF, JABIER with obesity, atelectasis; also likely some iatrogenic fluid overload
Incentive spirometry
decrease rate
Status post IV Lasix, now improving. No further Lasix at this time
chest pain
EKG non ischemic; trop neg
check CT pe study; patient refused as there was problem with his IV initially and then later since his pain was improving. pain is now improving
Hyponatremia
Monitor
Hypokalemia
Replete
#VIPUL
resolved
follow Cr
#Ileus 2/2 pancreatitis with constipation
Laxatives
monitor
Encourage ambulation
abdomen xray 08/25 without any bowel obstruction. Bilateral lower lobe airspace consolidation which could be atelectasis. Will monitor
#Filling defect seen in splenic vein on MRI
US doppler did not confirm thrombus, heparin stopped as per discussion with certified hearing instrument dispenser
#Hepatic atypical hemangioma
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
2.6 x 2.0 cm exophytic, nonenhancing lesion along the posterior medial right hepatic lobe which is likely benign
repeat MRI in [address] angio of splenic artery in 6mo
#DM type 2 with neuropathy
Accuchecks, Insulin SS, DM diet when able to eat
lantus
#Pyuria
Ucx without significant growth
Essential Hypertension
-Continue enalapril
resume HCTZ on dc
cw labtealol
#HLD
#Hypothyroidism
#GERD
cont home meds
TSH WNL
#Morbid obesity
BMI 45.0
Advice to decrease calorie intake
#DJD
tylenol
PT/OT
DVT ppx hep
Full code
Anticipated Discharge: Today
Subjective/Interval History
-
Date of Service: August 29, 2024
Denies pain
Objective Data
-
Labs:
Laboratory Results
08/29/24
07:27
WBC 8.3
Hgb 11.8 L
Hct 33.7 L
Plt Count 226
Sodium 132 L
Potassium 3.8
Chloride 96 L
Carbon Dioxide 26
BUN 10
Creatinine 0.8
Glucose 159 H
Calcium 8.4
Total Bilirubin 1.3
AST 43
ALT 72 H
Alkaline Phosphatase 99
Vital Signs:
Vital Signs
Temp Pulse Resp BP Pulse Ox
98 F 73 20 145/80 96
08/29/24 07:00 08/29/24 07:00 08/29/24 07:00 08/29/24 07:00 08/29/24 07:00
I&O
08/28/24 08/29/24 08/30/24
06:59 06:59 06:59
Intake Total 960 / 960 960 / 960
Output Total 3000 / 3000 2235 / 2235
Balance -2040 / -2040 -1275 / -1275
--- NOTE | 2024-08-29 10:09 | W.DCSUMMARY ---
Discharge Summary
Discharge Data
Date of Admission: 08/17/24
Date of Discharge: 08/29/24
-
Pending Results: No
Hospital Course
69-year-old male with past medical history of diabetes mellitus with neuropathy, essential hypertension, lipidemia, hypothyroidism, GERD, morbid obesity, DJD came to the hospital with acute gallstone necrotizing pancreatitis. Patient required
aggressive fluid resuscitation throughout hospitalization. Patient was seen by gastroenterology and surgery. Surgery recommended patient to follow-up with them once pancreatitis is better. CT scan was consistent with also pancreatitis on
admission. Patient also had a repeat CT scan on this hospitalization which showed new fluid collection likely pseudocyst or early abscess. Patient had no signs of infection so gastroenterology recommended patient antibiotics to be discontinued.
Patient leukocytosis continue to improve over time. GI recommended patient to get repeat CT scan outpatient. Patient also had an MRI which showed hepatic atypical hemangioma for which patient instructed to get repeat MRI and CT outpatient.
Patient hospital course was complicated with ileus secondary to pancreatitis with constipation which over time continue to improve. Patient also had extensive atelectasis and required oxygenation however prior to discharge she was able to be weaned
off oxygen. Patient was also evaluated by physical therapy prior to discharge and was recommended home health. Once patient symptoms continue to improve and he was able to tolerate diet, he was then discharged home with instructions to follow-up
with all his physicians outpatient.
Discharge Plan
-
Patient Disposition: Home with Home Care
Discharge Diagnosis/Procedures: Acute gallstone necrotizing pancreatitis
Acute hypoxic respiratory insufficiency
Atelectasis
Hyponatremia
Hypokalemia
Acute kidney injury
Ileus secondary to pancreatitis with constipation
Hepatic atypical hemangioma
Diet: Low Fat and Diabetic, Carb Controlled
Additional Diets: low fat diet with glucerna supplement daily for next 2 weeks and continue if oral intakes are decreased
Activity: As tolerated
Driving Restrictions: As prior to admission
Bathing Restrictions: None
Others Tests: will need 6 month follow up MRI for liver lesion, and 6-[address] for pancreatitis. Call to Scheduled follow up with Dr. Rooney to obtain slips for studies
Referrals:
Edin Rooney MD [Active] - (follow up with GI in 3-4 weeks-- Call [phone] to schedule. Return to ER for any increase abdominal pain, fever, chills, inability to eat. )
Berto Perez MD [Family Provider] - in less than 1 week
Claude Moffett MD [Active] - in one month (to discuss gallbladder surgery)
Prescriptions:
New
simethicone 80 mg Tablet,Chewable
80 mg PO QIDPRN PRN (Reason: gas pain/bloat) Qty: 0 0RF
Continued
vitamin B complex Tablet Extended Release
1 tab PO DAILY
enalapril maleate 20 mg Tablet
20 mg PO BID
therapeutic multivitamin Tablet
1 tab PO DAILY
levothyroxine [Levoxyl] 200 mcg Tablet
200 mcg PO DAILY
hydrochlorothiazide 25 mg Tablet
25 mg PO DAILY
labetalol 100 mg Tablet
25 mg PO TID
Patient Comments:
08/17/24: Patient prescribed labetalol 100mg BID, but takes 25mg over the course of the day 3-4 times.
labetalol 100 mg Tablet
25 mg PO DAILYPRN PRN (Reason: racing heart)
Patient Comments:
08/17/24: Patient prescribed labetalol 100mg BID, but takes 25mg over the course of the day 3-4 times.
docusate sodium 100 mg Tablet
100 mg PO BID
omeprazole 20 mg Capsule,Delayed Release(Dr/Ec)
20 mg PO DAILY
Held
atorvastatin 10 mg Tablet
10 mg PO QPM
Hold Instructions: Restart when liver function tests improves
Discontinued
aspirin 325 mg Tablet
325 mg PO QIDPRN PRN (Reason: mild pain)
metoprolol succinate 25 mg Tablet Extended Release 24 Hr
25 mg PO DAILYPRN PRN (Reason: racing heart)
Discharge Orders:
Discharge Patient (As Directed); Ordered 08/29/24
Ordered By: Yoseph Oreilly
Discharge Date and Time
Print Language: SERBIAN
--- NOTE | 2024-08-29 10:45 | CM ---
CM following re: discharge planning.
Reviewed pt's chart, met with pt.
Discharge order noted. Pt is aware, expressed his agreement with discharge. IMM reviewed, placed on chart, pt has a copy.
PT and OT evaluations noted - home PT/OT recommended. Pt is aware, expressed his agreement. A list of VN vendors provided. Pt preferred VN. a referral to [facility] made.
PT to issue a walker. A script for a walker is on the chart.
Pt stated his car is parked on the parking lot next to ED and he is requested be transported on a wheelchair to his car and if his car will not turn in then he will request a wheelchair van to get home. pt stated his sister will buy food tomorrow
and he will need to have lunch here at and to have some food when goes home. RN is aware of the above.
Please fax discharge instructions to [facility] at [phone].
D/C plan: home with VN and family support. Pt stated he will drive home.
[2024-08-29 12:23] LABS: Glucose - Point of Care 165 mg/dl (70-99)
[2024-08-29 15:00] VITALS: BP 163/106
--- NOTE | 2024-08-29 16:15 | PTCARENOTE ---
IV discontinued. Discharge paperwork printed and reviewed with patient. All questions addressed and answered. Pt transported off the floor via wheelchair with all belongings from the room accompanied by PCT.
== END 2024-08-29 17:16 | disposition home health service (06) | DRG 438 ==
LOC: 4 EAST ACU 22:27
PROVIDERS: Emergency Medicine; Internal Medicine; Physician Assistant Medical; Registered Nurse; Student in an Organized Health Care Education/Training Program; ADMITTING PHYSICIAN Internal Medicine; ATTENDING PHYSICIAN Internal Medicine; CONSULT PHYSICIAN Specialist; CONSULT PHYSICIAN Surgery; EMERGENCY PHYSICIAN Emergency Medicine; FAMILY PHYSICIAN Internal Medicine; OTHER PHYSICIAN Internal Medicine Hematology & Oncology
DX: K85.12 Biliary acute pancreatitis with infected necrosis (principal); E11.10 Type 2 diabetes mellitus with ketoacidosis without coma; J98.11 Atelectasis; J90 Pleural effusion, not elsewhere classified; K56.0 Paralytic ileus; E87.1 Hypo-osmolality and hyponatremia; N17.9 Acute kidney failure, unspecified; Z68.42 Body mass index [BMI] 45.0-49.9, adult; E78.00 Pure hypercholesterolemia, unspecified; G89.29 Other chronic pain; M54.9 Dorsalgia, unspecified; J45.909 Unspecified asthma, uncomplicated; E86.0 Dehydration; E66.812 Obesity, class 2; E03.9 Hypothyroidism, unspecified; E27.9 Disorder of adrenal gland, unspecified; N28.1 Cyst of kidney, acquired; I72.8 Aneurysm of other specified arteries; D18.09 Hemangioma of other sites; I25.10 Atherosclerotic heart disease of native coronary artery without angina pectoris; M41.86 Other forms of scoliosis, lumbar region; M51.369 Other intervertebral disc degeneration, lumbar region without mention of lumbar back pain or lower extremity pain; E66.01 Morbid (severe) obesity due to excess calories; E87.6 Hypokalemia; R09.02 Hypoxemia; E11.40 Type 2 diabetes mellitus with diabetic neuropathy, unspecified; R06.89 Other abnormalities of breathing; R82.81 Pyuria; D17.9 Benign lipomatous neoplasm, unspecified; I10 Essential (primary) hypertension; K21.9 Gastro-esophageal reflux disease without esophagitis; Z87.19 Personal history of other diseases of the digestive system; Z88.1 Allergy status to other antibiotic agents; Z79.82 Long term (current) use of aspirin; Z79.890 Hormone replacement therapy; Z80.8 Family history of malignant neoplasm of other organs or systems
CPT/HCPCS: 71046; 74018; 74177; 74183; 76604; 80048; 80053; 81003; 81015; 82010; 82077; 82570; 82787; 82962; 83036; 83605; 83615; 83690; 84300; 84443; 84478; 84484; 85025; 85027; 85379; 85730; 86140; 87040; 87086; 93005; 93306; 93970; 93975; 96361; 96365; 96375; 97110; 97116; 97163; 97167; 97530; 97535; 99285; Q9967

== ENCOUNTER → 2024-11-02 10:52 | Outpatient (REF) | payer MEDICARE, SELFPAY | LOC: HWRAD 10:52 | PROVIDERS: ATTENDING PHYSICIAN Specialist; FAMILY PHYSICIAN Internal Medicine; REFERRING PHYSICIAN Surgery | DX: K85.11 Biliary acute pancreatitis with uninfected necrosis (principal); K80.20 Calculus of gallbladder without cholecystitis without obstruction; I72.8 Aneurysm of other specified arteries; D18.03 Hemangioma of intra-abdominal structures; I82.890 Acute embolism and thrombosis of other specified veins | CPT/HCPCS: 76700; 93975 ==

== ENCOUNTER → 2024-11-09 09:14 | Outpatient (REF) | payer MEDICARE, SELFPAY | LOC: MRI 09:14 | PROVIDERS: ATTENDING PHYSICIAN Specialist; FAMILY PHYSICIAN Internal Medicine | DX: K85.11 Biliary acute pancreatitis with uninfected necrosis (principal); K80.20 Calculus of gallbladder without cholecystitis without obstruction; I72.8 Aneurysm of other specified arteries; D18.03 Hemangioma of intra-abdominal structures; I82.890 Acute embolism and thrombosis of other specified veins | CPT/HCPCS: 74183; A9575 ==